=== PATIENT | male | born 1965 ===

== ENCOUNTER 2017-02-11 20:36 | Inpatient (IN) ==
[2017-02-11] MEDS ORDERED: SODIUM CHLORIDE 0.9% 1,000 ML IV STA (21:02)
--- NOTE | 2017-02-11 21:12 | Emergency Department Note ---
IAllyson Emily, am scribing for, and in the presence of, Caroline Fernandes DO 21:09. IDom Debra, DO, personally performed the services described in this documentation, ascribed by Gladys Valadez in my presence, and it is both accurate and complete . Arrival - Arrival Chief Complaint: Extremity Problem Stated Complaint: left arm pain & swelling ED Nursing Triage Note: C/O Left wrist/forearm pain and swelling. Onset Monday afternoon. Pt was seen in the clinic on 02/06/17 and was sent for doppler which was done and was negative. Pt reports that the pain has worsened and so has the swelling. Mode of Arrival: Wheelchair Limitations: No Limitations Source: Patient - History of Present Illness HPI Narrative: Pt is a 51 y/o male who came to ED with c/o left arm swelling that has been ongoing since last Monday, but not progressively worsened. Pt notes being seen on February 06, 2017, with negative Doppler US. Pt states the swelling and pain has worsened and increased up to graft site and unable to move hand or fingers. Onset (ago): day(s) Consistency: constant Severity: moderate Severity scale (1-10): 7 Quality: aching Allergies/Adverse Reactions: Allergies Allergy/AdvReac Type Severity Reaction Status Date / Time No Known Allergies Allergy Verified 10/04/16 05:13 Home Medications: Home Medications Medication Instructions Recorded Confirmed Type Aspirin [Ecotrin] 81 mg PO DAILY 02/11/17 02/11/17 History Calcium Carbonate 500 mg PO TID 02/11/17 02/11/17 History Carvedilol [Coreg] 25 mg PO BID 02/11/17 02/11/17 History Indomethacin [Indomethacin Cap] 25 mg PO TID PRN 02/11/17 02/11/17 History Insulin Aspart [NovoLOG FlexPen] 5 unit SUBCUT TID 02/11/17 02/11/17 History Insulin Detemir [Levemir FlexPen] 65 unit SUBCUT BEDTIME 02/11/17 02/11/17 History Pantoprazole Tab [Protonix Tab] 40 mg PO DAILY 02/11/17 02/11/17 History Ranitidine Tab [Zantac Tab] 150 mg PO BID 02/11/17 02/11/17 History Simvastatin 20 mg PO BEDTIME 02/11/17 02/11/17 History Vit B Comp/C/FA/Iron/Vit E 1 each PO DAILY 02/11/17 02/11/17 History [Vitamin B Complex Tablet] hydrALAZINE TAB [Apresoline Tab] 50 mg PO TID 02/11/17 02/11/17 History predniSONE TAB [PredniSONE] 20 mg PO DAILY 02/11/17 02/11/17 History Review of System - Review of System 12 point system: reviewed and no additional remarkable complaints except as stated - Review of System Constitutional: Absent: chills, fever, weakness Respiratory: Absent: respiratory distress Cardiovascular: Absent: chest pain, syncope Gastrointestinal: Absent: abdominal pain, nausea, vomiting Musculoskeletal: Present: arm pain (left swollen and painful progressively worsened). Absent: back pain, leg pain, neck pain Skin: Absent: rash Neurological: Absent: headache, confusion Medical,Surgical,& Family Hx - Medical History Cardio: History of: CHF (DR MAURICE), Hypertension Neurology: No history of: Seizures HEENT: History of: Ear Problem (DEAF LEFT EAR, HEARING AID), Eye Problem ( CATARACTS TAKES SHOTS BLEED BEHIND EYES) Endocrine: History of: Diabetes Mellitus (IDDM) Rheumatology: History of;: Rheumatoid Arthritis (knees) Respiratory: History of: Pneumonia (2012) No history of: Respiratory Problems (Flu Vac 2015; ?No Pneum Vac) Renal: History of: Renal Failure (STAGE 4 DR HAIR), Renal Problems Gastrointestinal: History of: GERD No history of: Polyps Musculoskeletal: History of: Amputation (RIGHT FOOT 2nd 3RD 4TH AND 5TH TOE : LEFT FOOT BIG TOE AND 2ND TOE) Hematology: History of: Anemia No history of: Blood Transfusion Reaction Other: History of: MRSA (FEET), Skin Problems (WOUNDS BOTH FEET-Dr. Amin) No history of: Anesthesia Reactions, Cancer - Surgical History Cardiac Surgeries: Sugical HX of: Vascular Access Devices (Sched for Lt wrist AV Fistula 08/05/15-unsuccessful; again 09/08/15) HEENT Surgeries: Surgical HX of: Eye Surgery (CATARACT SURGERY 2013, LEFT EYE RETINA SURGERY) Abdominal Surgeries: Surgical HX of: Abdominal Surgery, Colonoscopy Reproductive Surgeries: Patient denies;: Genitourinary Surgery - Family History Family History: Reports;: Family Cancer (MOM), Family Diabetes, Family Hypertension (DAD) - Social History Smoking Status: Never smoker Frequency of Alcohol Use: None Type of Drug Use: None Exam Vital Signs: Vital Signs Temperature 99.6 F 02/11/17 21:05 Pulse Rate 68 02/11/17 21:05 Respiratory Rate 20 02/11/17 21:05 Blood Pressure 191/77 02/11/17 21:05 O2 Sat by Pulse Oximetry 95 02/11/17 21:03 - General General appearance: alert, in no apparent distress - Head Head exam: Present: atraumatic, normocephalic - Eye Eye exam: Present: PERRL, EOMI - ENT ENT exam: Present: mucous membranes moist. Absent: mucous membranes dry - Neck Neck exam: Present: full ROM. Absent: tenderness - Chest Chest inspection: Present: symmetric chest wall rise. Absent: tenderness - Respiratory Respiratory exam: Present: normal lung sounds bilaterally. Absent: respiratory distress - Cardiovascular Cardiovascular exam: Present: regular rate, normal rhythm, normal heart sounds - Abdominal Exam Abdominal exam: Present: soft. Absent: tenderness - Extremities Exam Extremities exam: Present: tenderness (left arm swollen and painful from graft at elbow to fingertips, taunt). Absent: full ROM (decreased movement in left arm due to pain; tight), normal capillary refill (decreased cap refill), pedal edema - Neurological Exam Neurological exam: Present: alert, oriented X3, CN II-XII intact. Absent: motor sensory deficit - Psychiatric Psychiatric exam: Present: normal affect, normal mood - Skin Skin exam: Present: warm, dry Course Course Narrative: spoke with hospitalist who will admit pt . Results - Labs CBC & BMP: 02/11/17 21:07 02/11/17 21:07 Lab Results: I have reviewed the patients labs Labs: Laboratory Tests 02/11/17 02/11/17 21:07 21:07 WBC 20.1 H RBC 3.45 L Hgb 11.2 L Hct 31.1 L Neut % (Auto) 85.4 H Lymph % (Auto) 6.1 L Neut # (Auto) 17.2 H Lymph # (Auto) 1.2 L [place] # (Auto) 1.3 H Lymphocytes 10 L Sodium 129 L Chloride 90 L BUN 53 H Creatinine 6.20 H Glucose 289 H Calcium 10.2 H Alkaline Phosphatase 119 H Albumin 3.1 L Globulin 4.9 H Albumin/Globulin Ratio 0.6 L Disposition Clinical Impression: Arm pain Case discussed with: patient, patient's family Disposition: Still a Patient Condition: Stable Time of Disposition: 23:12
[2017-02-11 21:15] LABS: Basophils % 0.2 % (0.0-0.8); Eosinophils # 0.2 10*3/uL (0.0-0.87); Eosinophils % 0.8 % (0.00-10.9); Hematocrit 31.1 VOL% (42.0-52.0); Hemoglobin 11.2 GM/DL (14.0-18.0); Immature Granulocytes % 0.9 %; Immature Granulocytes Absolute 0.18 #; Lymphocytes # 1.2 10*3/uL (1.4-4.0); Lymphocytes % 6.1 % (21.2-54.2); Mean Corpuscular Hemoglobin 33 PG (27-34); Mean Corpuscular Volume 90.1 FL (87-102); Mean Platelet Volume 10.3 FL (9.6-12.0); Monocytes # 1.3 10*3/uL (0.11-0.8); Monocytes % 6.6 % (1.7-12.7); NRBC # 0.02 10*3/uL; Neutrophils # 17.2 10*3/uL (1.4-7.4); Neutrophils % 85.4 % (38.7-73.9); Platelet Count 246 T/CUMM (130-400); Red Blood Count 3.45 MC/CUMM (3.8-5.5); Red Cell Distribution Width 14.6 % (9.3-17.3); White Blood Count 20.1 T/CUMM (4-12)
[2017-02-11 21:34] LABS: Band Neutrophils 1 % (0-10); Eosinophils 1 % (0-10); Lymphocytes 10 % (20-55); Platelet Estimate Adequate; Segmented Neutrophils 82 % (50-85); Total Cells Counted 100
[2017-02-11 21:38] LABS: Albumin 3.1 G/DL (3.4-5.0); Bilirubin,Total 0.5 MG/DL (0.2-1.0); Calcium 10.2 MG/DL (8.5-10.1); Osmolality,Calculated 282.9 MOS/KG (273-304)
[2017-02-11] MEDS ORDERED: ONDANSETRON 4 MG/2 ML VIAL ONE (22:34)
[2017-02-11] MEDS ORDERED: HYDROmorphone 2 MG/1 ML VIAL ONE (22:35)
[2017-02-11] MEDS ORDERED: HYDROmorphone 2 MG/1 ML VIAL IV STA (22:38)
[2017-02-11] MEDS ORDERED: ONDANSETRON 4 MG/2 ML VIAL IV STA (22:38)
--- NOTE | 2017-02-11 23:05 | General Surgery Consult Note ---
Assessment and Plan - Time spent with patient Time spent with patient: Greater than 30 minutes (1) Left arm swelling Status: Acute Assessment and plan: I suspect that his swelling is from venous hypertension in his left arm. We will admit him and aggressively elevate his arm. We will consult interventional radiology to see about doing a fistulogram to see if there is a venous outflow stenosis. This was not evident on ultrasound but could be a central venous stenosis causing venous hypertension in his extremity. Current Visit: Yes (2) Chronic renal insufficiency, stage IV (severe) Status: Chronic Assessment and plan: He will probably need to be seen by nephrology to manage dialysis Current Visit: No History of Present Illness Chief complaint: Left arm pain and swelling History of present illness: Mr. Adams is a 51 year old male Who for 2 weeks she has had persistent swelling in his left arm and increased pain associated with this. He has not had cyanosis of his fingers. He has a left arm AV fistula in his left upper arm based off of the cephalic vein. This was done by Dr. Pierre I believe. He was seen here a couple of days ago and has returned because this is more swollen and more intense. He does not know of any aggravating or alleviating factors. His fistula has been usable for dialysis. Home Medications Medication Instructions Recorded Confirmed Type Aspirin [Ecotrin] 81 mg PO DAILY 02/11/17 02/11/17 History Calcium Carbonate 500 mg PO TID 02/11/17 02/11/17 History Carvedilol [Coreg] 25 mg PO BID 02/11/17 02/11/17 History Indomethacin [Indomethacin Cap] 25 mg PO TID PRN 02/11/17 02/11/17 History Insulin Aspart [NovoLOG FlexPen] 5 unit SUBCUT TID 02/11/17 02/11/17 History Insulin Detemir [Levemir FlexPen] 65 unit SUBCUT BEDTIME 02/11/17 02/11/17 History Pantoprazole Tab [Protonix Tab] 40 mg PO DAILY 02/11/17 02/11/17 History Ranitidine Tab [Zantac Tab] 150 mg PO BID 02/11/17 02/11/17 History Simvastatin 20 mg PO BEDTIME 02/11/17 02/11/17 History Vit B Comp/C/FA/Iron/Vit E 1 each PO DAILY 02/11/17 02/11/17 History [Vitamin B Complex Tablet] hydrALAZINE TAB [Apresoline Tab] 50 mg PO TID 02/11/17 02/11/17 History predniSONE TAB [PredniSONE] 20 mg PO DAILY 02/11/17 02/11/17 History Allergies Allergy/AdvReac Type Severity Reaction Status Date / Time No Known Allergies Allergy Verified 10/04/16 05:13 Medical,Surgical,& Family Hx - Medical History Cardio: History of: CHF (DR MAURICE), Hypertension Neurology: No history of: Seizures HEENT: History of: Ear Problem (DEAF LEFT EAR, HEARING AID), Eye Problem ( CATARACTS TAKES SHOTS BLEED BEHIND EYES) Endocrine: History of: Diabetes Mellitus (IDDM) Rheumatology: History of;: Rheumatoid Arthritis (knees) Respiratory: History of: Pneumonia (2012) No history of: Respiratory Problems (Flu Vac 2015; ?No Pneum Vac) Renal: History of: Dialysis, Renal Failure (STAGE 4 DR HAIR), Renal Problems Gastrointestinal: History of: GERD No history of: Polyps Musculoskeletal: History of: Amputation (RIGHT FOOT 2nd 3RD 4TH AND 5TH TOE : LEFT FOOT BIG TOE AND 2ND TOE) Hematology: History of: Anemia No history of: Blood Transfusion Reaction Other: History of: MRSA (FEET), Skin Problems (WOUNDS BOTH FEET-Dr. Amin) No history of: Anesthesia Reactions, Cancer - Surgical History Cardiac Surgeries: Sugical HX of: Vascular Access Devices (Sched for Lt wrist AV Fistula 08/05/15-unsuccessful; again 09/08/15) HEENT Surgeries: Surgical HX of: Eye Surgery (CATARACT SURGERY 2013, LEFT EYE RETINA SURGERY) Abdominal Surgeries: Surgical HX of: Abdominal Surgery, Colonoscopy Reproductive Surgeries: Patient denies;: Genitourinary Surgery - Family History Family History: Reports;: Family Cancer (MOM), Family Diabetes, Family Hypertension (DAD) - Social History Smoking Status: Never smoker Frequency of Alcohol Use: None Type of Drug Use: None - Constitutional Constitutional: Absent: chills, fever(s) - Cardiovascular Cardiovascular: Absent: chest pain at rest, chest pain with activity, dyspnea, dyspnea on exertion - Respiratory Respiratory: Absent: dyspnea, hemoptysis, dyspnea on exertion - Gastrointestinal Gastrointestinal: Absent: abdominal pain - Genitourinary Genitourinary: Absent: hematuria - Musculoskeletal Musculoskeletal: Absent: back pain - Neurological Neurological: Present: numbness (Fingers of left hand). Absent: focal weakness , syncope - Endocrine Endocrine: Absent: polyuria Hematologic/Lymphatic: Absent: easy bruising Exam - Constitutional Vitals: Period Temp Pulse Resp BP Sys/Jo Pulse Ox Last 24 Hr 99.6 F-99.6 F 66-68 18-20 141-191/77-85 92-95 General appearance: no acute distress - Head Head exam: Present: normocephalic - Eye Eye exam: Absent: scleral icterus - Respiratory Respiratory exam: Present: clear to auscultation bilaterally. Absent: accessory muscle use - Cardiovascular Cardiovascular exam: Present: RRR - GI/Abdominal GI/Abdominal exam: Present: soft. Absent: distended, tenderness - Extremities Exam Extremities exam: Present: edema, other (Left arm has no erythema and there is no cyanosis of his fingers. He has a very weakly palpable radial pulse and brisk flow in his AV fistula especially over his shoulder.) - Neurological Exam Neurological exam: Present: alert, oriented X3 Speech: Present: normal - Skin Skin exam: Present: normal color Results - Labs CBC & BMP: 02/11/17 21:07 02/11/17 21:07 - Diagnostic Findings Procedure: Ultrasound: image reviewed by me
[2017-02-11] MEDS ORDERED: ONDANSETRON 4 MG/2 ML VIAL IV PRN (23:26)
[2017-02-11] MEDS ORDERED: VANCOMYCIN INJ 1,500 MG in SODIUM CHLORIDE 0.9% 500 ML IV STA (23:32)
--- NOTE | 2017-02-11 23:45 | Hospitalist History & Physical ---
Assessment and Plan (1) Left arm swelling Status: Acute Assessment and plan: Left upper extremity swelling likely due to AV access obstruction at the venous side. He will probably need a fistulogram to evaluate fistula. Dr. Desire Vasquez. already have planned to get IR evaluate him. I am cannot rule out cellulitis associated with that. Patient has a leukocytosis and has worsened since his lab work at the [facility]. I will give him a dose of vancomycin and started on renal dose of Zosyn. Blood cultures been asked for. Since he has an similar disease, I have given only 1 dose of vancomycin. I will order a random level of vancomycin on Monday morning and will defer further dosing to hospitalist rounding which would be based on patient progress further finding and culture result Current Visit: Yes (2) Anemia Status: Acute Assessment and plan: Probably related to chronic disease/end-stage renal disease. Current Visit: No (3) Diabetes mellitus Status: Acute Assessment and plan: Patient was on Levemir at home with the short-acting insulin I will start on as part before meals and at bedtime. I will give him Lantus insulin 40 units daily which. Not sure much he is compliant with the medications I am reluctant to give the full dose of insulin. His blood sugar significantly improved from what he had at the [facility]. His insulin may need to be adjusted based on his blood sugar readings Current Visit: No (4) Diabetic foot ulcer associated with type 2 diabetes mellitus Problem details: Chronic bilateral plantar foot ulcerations in a diabetic patient with history of partial bilatera foot amputations and skin grafts, now with end stage renal disease and new onset dialysis. Status: Chronic Assessment and plan: I have ordered for the wound care management. Patient is followed by Dr. Amin and supposed to have appointment on . There is no urgency at present patient is already on antibiotic. Dr. Amin may have be to be notified on Monday Current Visit: No (5) End stage renal disease on dialysis Status: Chronic Assessment and plan: We will consult renal to assist with the dialysis management Current Visit: No (6) History of CHF (congestive heart failure) Status: Chronic Assessment and plan: Clinically compensated Current Visit: Yes (7) Hypertension Status: Chronic Assessment and plan: Blood pressure not controlled patient has not received any medicine today will resume his home medication he is asymptomatic for his hypertension Current Visit: No Qualifiers: Hypertension type: essential hypertension Qualified Code(s): I10 - Essential (primary) hypertension History of Present Illness Chief complaint: Swelling left arm History of present illness: Mr. Adams is a 51 year old male with history of hypertension diabetes mellitus CHF and ESRD. He is on dialysis on Monday schedule and was last dialyzed yesterday.. He has left upper extremities AV fistula which was placed in August. He started having swelling of the left arm on Monday and was seen here in ER Monday he had a Doppler study of the left upper extremity was negative for DVT he was given steroid. His pain and swelling get worse since then but apparently had no problem in getting access cannulated for dialysis yesterday. There is no associated fever. He was seen at [facility] and had lab work done there noted WBC count of 14.5 and had a blood sugar of 853 he was given insulin and transferred here to [facility] ER. Here he had WBC count of 20.1 and blood sugar 289. He had another venous Dopplers done results not available to review but I have been told by the ER physician that was negative for DVT. Patient was seen by Dr. Desire nAn in the ER as there was a concern for compartment syndrome by ER physician. Dr. Desire Ann has evaluated and want to keep his arm elevated and plan to get a fistulogram. I have asked patient about any other symptoms he denies pain anywhere else he does have a's wounds on both extremities and the foot and to be followed by Dr. Amin. He is followed by the home health and change the dressing at home. He denied any pain in the wound on her feet he has denied any other body symptoms I denies any nausea vomiting diarrhea but do have a poor appetite and or not he was not able to eat anything today no chest pain shortness of breath reported he makes urine once a day and denies any dysuria or hematuria Home Medications Medication Instructions Recorded Confirmed Type Aspirin [Ecotrin] 81 mg PO DAILY 02/11/17 02/11/17 History Calcium Carbonate 500 mg PO TID 02/11/17 02/11/17 History Carvedilol [Coreg] 25 mg PO BID 02/11/17 02/11/17 History Indomethacin [Indomethacin Cap] 25 mg PO TID PRN 02/11/17 02/11/17 History Insulin Aspart [NovoLOG FlexPen] 5 unit SUBCUT TID 02/11/17 02/11/17 History Insulin Detemir [Levemir FlexPen] 65 unit SUBCUT BEDTIME 02/11/17 02/11/17 History Pantoprazole Tab [Protonix Tab] 40 mg PO DAILY 02/11/17 02/11/17 History Ranitidine Tab [Zantac Tab] 150 mg PO BID 02/11/17 02/11/17 History Simvastatin 20 mg PO BEDTIME 02/11/17 02/11/17 History Vit B Comp/C/FA/Iron/Vit E 1 each PO DAILY 02/11/17 02/11/17 History [Vitamin B Complex Tablet] hydrALAZINE TAB [Apresoline Tab] 50 mg PO TID 02/11/17 02/11/17 History predniSONE TAB [PredniSONE] 20 mg PO DAILY 02/11/17 02/11/17 History Allergies Allergy/AdvReac Type Severity Reaction Status Date / Time No Known Allergies Allergy Verified 10/04/16 05:13 Medical,Surgical,& Family Hx - Medical History Cardio: History of: CHF (DR MAURICE), Hypertension Neurology: No history of: Seizures HEENT: History of: Ear Problem (DEAF LEFT EAR, HEARING AID), Eye Problem ( CATARACTS TAKES SHOTS BLEED BEHIND EYES) Endocrine: History of: Diabetes Mellitus (IDDM) Rheumatology: History of;: Rheumatoid Arthritis (knees) Respiratory: History of: Pneumonia (2012) No history of: Respiratory Problems (Flu Vac 2015; ?No Pneum Vac) Renal: History of: Dialysis, Renal Failure (STAGE 4 DR HAIR), Renal Problems Gastrointestinal: History of: GERD No history of: Polyps Musculoskeletal: History of: Amputation (RIGHT FOOT 2nd 3RD 4TH AND 5TH TOE : LEFT FOOT BIG TOE AND 2ND TOE) Hematology: History of: Anemia No history of: Blood Transfusion Reaction Other: History of: MRSA (FEET), Skin Problems (WOUNDS BOTH FEET-Dr. Amin) No history of: Anesthesia Reactions, Cancer - Surgical History Cardiac Surgeries: Sugical HX of: Vascular Access Devices (Sched for Lt wrist AV Fistula 08/05/15-unsuccessful; again 09/08/15) HEENT Surgeries: Surgical HX of: Eye Surgery (CATARACT SURGERY 2013, LEFT EYE RETINA SURGERY) Abdominal Surgeries: Surgical HX of: Abdominal Surgery, Colonoscopy Reproductive Surgeries: Patient denies;: Genitourinary Surgery - Family History Family History: Reports;: Family Cancer (MOM), Family Diabetes, Family Hypertension (DAD) - Social History Smoking Status: Never smoker Frequency of Alcohol Use: None Type of Drug Use: None Review of systems: Comprehensive review of system was done and negative unless indicated above in HPI Exam - Constitutional Vitals: Period Temp Pulse Resp BP Sys/Jo Pulse Ox Last 24 Hr 99.6 F-99.6 F 66-68 18-20 141-191/77-85 92-95 General appearance: no acute distress, over weight - Head Head exam: Present: normal inspection, normocephalic, atraumatic. Absent: hematoma - Eye Eye exam: Present: EOMI. Absent: conjunctival injection Pupils: Present: YOLANDA, normal accommodation - ENT ENT exam: Present: normal exam, normal oropharynx - Neck Neck exam: Present: normal inspection. Absent: lymphadenopathy, meningismus - Respiratory Respiratory exam: Present: clear to auscultation bilaterally. Absent: accessory muscle use, rales, rhonchi - Cardiovascular Cardiovascular exam: Present: regular rate and rhythm. Absent: tachycardia - GI/Abdominal GI/Abdominal exam: Present: normal bowel sounds, soft. Absent: ascites, distended, tenderness - Extremities Exam Extremities exam: Present: edema (Left upper extremities swollen at the hand wrist and forearm with some redness and mild elevated temperature compared to the right side I can feel pedal at the AV access in left upper extremity), other (Amputation of the right fourth toes. There is a wound on the solar aspect of right big toe with some necrotic tissue around. There is amputation of photos in the left lower extremities. 2 ulcers on the solar aspect of the left foot , one with the large area of necrosis at the age) - Neurological Exam Neurological exam: Present: alert, oriented X3 Results - Labs CBC & BMP: 02/11/17 21:07 02/11/17 21:07 Lab Results: I have reviewed the past 24 hour labs
[2017-02-12] MEDS ORDERED: DEXTROSE 50% 25 GM/50 ML VIAL IV PRN (00:01)
[2017-02-12] MEDS ORDERED: GLUCAGON 1 MG VIAL IM PRN (00:01)
[2017-02-12] MEDS ORDERED: VANCOMYCIN 1,000 MG VIAL ONE (00:30)
[2017-02-12] MEDS: INSULIN REGULAR 100 UNIT/ML SUBCUT SCH ×5 (02:15→21:14)
[2017-02-12] MEDS: PIPERACILLIN/TAZOBACTAM 3,375 MG in SODIUM CHLORIDE 0.9% 100 ML IV SCH ×2 (03:12→15:47)
[2017-02-12 06:24] LABS: Basophils # 0.1 10*3/uL (0.0-0.2); Basophils % 0.2 % (0.0-0.8); Eosinophils # 0.1 10*3/uL (0.0-0.87); Eosinophils % 0.6 % (0.00-10.9); Hematocrit 26.7 VOL% (42.0-52.0); Hemoglobin 9.5 GM/DL (14.0-18.0); Immature Granulocytes % 1.2 %; Immature Granulocytes Absolute 0.24 #; Lymphocytes # 1.4 10*3/uL (1.4-4.0); Mean Corpuscular HGB Conc 35.6 GM/DL (32-36); Mean Corpuscular Hemoglobin 32 PG (27-34); Mean Corpuscular Volume 91.1 FL (87-102); Mean Platelet Volume 10.4 FL (9.6-12.0); Monocytes # 1.3 10*3/uL (0.11-0.8); Monocytes % 6.4 % (1.7-12.7); Neutrophils # 17.5 10*3/uL (1.4-7.4); Neutrophils % 84.6 % (38.7-73.9); Platelet Count 210 T/CUMM (130-400); Red Blood Count 2.93 MC/CUMM (3.8-5.5); Red Cell Distribution Width 14.7 % (9.3-17.3); White Blood Count 20.7 T/CUMM (4-12)
[2017-02-12 07:01] LABS: Calcium 9.8 MG/DL (8.5-10.1); Osmolality,Calculated 284.7 MOS/KG (273-304)
[2017-02-12 07:13] LABS: Hypochromasia Slight; Lymphocytes 9 % (20-55); Microcytosis 1+; Platelet Estimate Normal; Segmented Neutrophils 87 % (50-85); Total Cells Counted 100
--- NOTE | 2017-02-12 07:56 | Ultrasound Report ---
History: Left arm swelling Date: 02/12/2017 Study: Left upper extremity color flow venous Doppler study Comparison exam: February 06, 2017 exam Color Doppler, wave form analysis, and compression analysis of the deep veins of the left upper extremity from the internal jugular and subclavian vein level to the wrist level shows that the veins are readily compressible. There is no abnormal intraluminal material to suggest thrombus. There is gross patency of the left upper extremity dialysis graft. There is gross patency of the left brachial artery.. Ultrasound images were captured and archived Impression: No evidence of deep venous thrombosis PROCEDURE INTERPRETED AT [facility] DEPARTMENT OF RADIOLOGY Final Report Signed by: Dr. Janie Wilkinson
--- NOTE | 2017-02-12 08:11 | General Surgery Progress Note ---
Assessment and Plan (1) Left arm swelling Status: Acute Assessment and plan: I suspect that his swelling is from venous hypertension in his left arm. We will admit him and aggressively elevate his arm. We will consult interventional radiology to see about doing a fistulogram to see if there is a venous outflow stenosis. This was not evident on ultrasound but could be a central venous stenosis causing venous hypertension in his extremity. 02/12: He continues to have arm pain though he says this is a little better than last night. I have had his arm aggressively elevated on an IV pole with a stockinette. He does not have much in the way of edema. It is unclear the etiology of his pain whether this is venous hypertension from a central venous stenosis and high pressure related to the fistula or whether or not this could be pain from a steal type syndrome. It would be unusual to get a steal syndrome this far out from creation of the AV fistula. We will have him evaluated by interventional radiology today. Current Visit: Yes (2) Chronic renal insufficiency, stage IV (severe) Status: Chronic Assessment and plan: He will probably need to be seen by nephrology to manage dialysis Current Visit: No Subjective Patient reports: Present: still having pain, pain is less. Absent: nausea, vomiting, fever Exam - Constitutional Vitals: Period Temp Pulse Resp BP Sys/Jo Pulse Ox Last 24 Hr 99.1 F-99.6 F 63-95 18-96 122-191/57-85 92-97 General appearance: no acute distress - Head Head exam: Present: normocephalic - Eye Eye exam: Absent: scleral icterus - Respiratory Respiratory exam: Absent: accessory muscle use - Extremities Exam Extremities exam: Present: edema, other (His edema is actually mild. His forearm is soft and not really tender. I do not appreciate erythema. His hand is not cyanotic. The examination is not that impressive however he still complains of arm pain. His ultrasound was essentially negative.) Results - Labs CBC & BMP: 02/12/17 05:58 02/12/17 05:58 Lab Results: I have reviewed the past 24 hour labs
[2017-02-12] MEDS: CALCIUM (CARBONATE) 500 MG TABLET PO SCH ×3 (08:36→16:51)
[2017-02-12] MEDS: predniSONE 20 MG TABLET PO SCH (08:56)
[2017-02-12] MEDS: MULTIVITAMIN (BEROCCA) TABLET PO SCH (08:56)
[2017-02-12] MEDS: CARVEDILOL 25 MG TABLET PO SCH ×2 (08:56→21:13)
[2017-02-12] MEDS: ASPIRIN EC 81 MG TABLET PO SCH (08:56)
[2017-02-12] MEDS: ENOXAPARIN 30 MG/0.3 ML SYRINGE SUBCUT SCH ×2 (08:56→09:00)
[2017-02-12] MEDS: PANTOPRAZOLE 40 MG TABLET PO SCH (08:56)
--- NOTE | 2017-02-12 10:00 | Nephrology Consult Note ---
History of Present Illness Chief complaint: esrd History of present illness: Mr. Adams is a 51 year old male with end-stage renal disease who presents with a swollen left arm he says it has been swelling for over a week. He has a left upper arm fistula in place which is functional. There is no evidence of infection in the arm. Mr. Adams dialyzes in [place] on a Monday schedule. He last dialyzed on Monday. He has a long history of diabetic peripheral vascular disease and has had toes amputated in the past. On physical exam he is in no distress but he does have a swollen left arm with a functioning AV fistula in the left upper arm. His chest is clear and heart without rub or gallop. He has toes amputated on both feet. Impression swollen left arm likely secondary to venous hypertension and hopefully a treatable venous narrowing. End-stage renal disease. Diabetes mellitus. Peripheral vascular disease. Plan fistulogram. Dialysis here or as an outpatient. Home Medications Medication Instructions Recorded Confirmed Type Aspirin [Ecotrin] 81 mg PO DAILY 02/11/17 02/12/17 History Calcium Carbonate 1,000 mg PO TID W/MEALS 02/11/17 02/12/17 History Carvedilol [Coreg] 25 mg PO BID 02/11/17 02/12/17 History Indomethacin [Indomethacin Cap] 25 mg PO TID PRN 02/11/17 02/12/17 History Insulin Aspart [NovoLOG FlexPen] 5 unit SUBCUT TID 02/11/17 02/12/17 History Insulin Detemir [Levemir FlexPen] 65 unit SUBCUT BEDTIME 02/11/17 02/12/17 History hydrALAZINE TAB [Apresoline Tab] 50 mg PO TID 02/11/17 02/12/17 History predniSONE TAB [PredniSONE] 20 mg PO DAILY 02/11/17 02/12/17 History Allergies Allergy/AdvReac Type Severity Reaction Status Date / Time No Known Allergies Allergy Verified 10/04/16 05:13 Medical,Surgical,& Family Hx - Medical History Cardio: History of: CHF (DR MAURICE doesn't take any medications for this.), Hypertension Neurology: No history of: Seizures HEENT: History of: Ear Problem (DEAF LEFT EAR, HEARING AID), Eye Problem ( CATARACTS TAKES SHOTS BLEED BEHIND EYES) Endocrine: History of: Diabetes Mellitus (IDDM) (levemir) Rheumatology: History of;: Rheumatoid Arthritis (knees) Respiratory: History of: Pneumonia (2012) No history of: Respiratory Problems (Flu Vac 2016; ?No Pneum Vac) Renal: History of: Dialysis (m/w/f), Renal Failure (STAGE 4 DR HAIR), Renal Problems (dialysis patient.) Gastrointestinal: History of: GERD No history of: Polyps Musculoskeletal: History of: Amputation (RIGHT FOOT 2nd 3RD 4TH AND 5TH TOE : LEFT FOOT BIG TOE AND 2ND TOE) Hematology: History of: Anemia No history of: Blood Transfusion Reaction Other: History of: MRSA (history of MRSA in foot,), Skin Problems (WOUNDS BOTH FEET-Dr. Amin) No history of: Anesthesia Reactions, Cancer - Surgical History Cardiac Surgeries: Sugical HX of: Vascular Access Devices (Sched for Lt wrist AV Fistula 08/05/15-unsuccessful; again 09/08/15) HEENT Surgeries: Surgical HX of: Eye Surgery (CATARACT SURGERY 2013, LEFT EYE RETINA SURGERY) Abdominal Surgeries: Surgical HX of: Abdominal Surgery, Colonoscopy Reproductive Surgeries: Patient denies;: Genitourinary Surgery - Family History Family History: Reports;: Family Cancer (MOM), Family Diabetes, Family Hypertension (DAD) - Social History Smoking Status: Never smoker Frequency of Alcohol Use: None Type of Drug Use: None Review of Systems 12 point system: reviewed and no additional remarkable complaints except as stated Exam - Vital Signs Vital signs: Period Temp Pulse Resp BP Sys/Jo Pulse Ox Last 24 Hr 99.1 F-100.2 F 63-95 16-96 122-191/57-85 92-97 - General Appearance General appearance: well-developed, well-nourished, appears started age EENT: ATNC Neck: no JVD, no thyromegaly, no carotid bruit, supple Respiratory: no kyphosis, no scoliosis Cardiology: no murmurs, no rub, no gallops, no edema, regular rate, regular rhythm, normal S1, normal S2 Gastrointestinal: normoactive bowel sounds Integumentary: no rash, warm and dry Neurologic: no focal deficit, no asterixis, alert and oriented x3, reflexes 2+ and symmetric, gait normal, strength 5/5 Musculoskeletal: no deformities (toe amps bilaterally. swollen left arm), no erythema, no cyanosis, no clubbing Psychiatric: mood/affect appropriate, cooperative Results - Labs CBC & BMP: 02/12/17 05:58 02/12/17 05:58 Assessment and Plan (1) End stage renal disease Status: Chronic Current Visit: No (2) Left arm swelling Status: Acute Current Visit: Yes (3) Diabetes mellitus Status: Acute Current Visit: No Specialty Discharge - Follow Up or Referrals - Speciality Discharge Instructions Nephrology Instructions: Will dialyze tomorrow if here or he can be dialyzed as an outpatient if discharged.
--- NOTE | 2017-02-12 10:18 | Hospitalist Progress Note ---
Assessment and Plan - Time spent with patient Time spent with patient: Greater than 30 minutes (1) Sepsis Status: Acute Assessment and plan: Source is likely the left arm, soft tissue infection. Continue broad spectrum antibiotics. Consult ID. Current Visit: Yes (2) Cellulitis Status: Acute Assessment and plan: Continue Zosyn and Vancomycin. Will consult ID. Current Visit: Yes (3) Left arm swelling Status: Acute Assessment and plan: Surgery consulted for possible fistula dysfunction. IR to be consulted for evaluation of fistula. Current Visit: Yes (4) Diabetes mellitus Status: Acute Assessment and plan: Continue current management. Current Visit: No (5) History of CHF (congestive heart failure) Status: Chronic Current Visit: Yes (6) Anemia Status: Acute Assessment and plan: Due to CKD, will continue to follow. Current Visit: No (7) End stage renal disease on dialysis Status: Chronic Assessment and plan: Dialysis Current Visit: No (8) Hypertension Status: Chronic Current Visit: No Qualifiers: Hypertension type: essential hypertension Qualified Code(s): I10 - Essential (primary) hypertension Hospitalist: Subjective Interval history: Complains of left arm swelling and pain. States this has been a progressively worsening issue for 2 weeks. F of 100.2. Exam - Constitutional Vitals: Period Temp Pulse Resp BP Sys/Jo Pulse Ox Last 24 Hr 99.1 F-100.2 F 63-95 16-96 122-191/57-85 92-97 General appearance: normal weight, no acute distress - Head Head exam: Present: normal inspection, normocephalic, atraumatic - Eye Eye exam: Present: EOMI Pupils: Present: YOLANDA - ENT ENT exam: Present: normal exam - Neck Neck exam: Present: normal inspection - Respiratory Respiratory exam: Present: clear to auscultation bilaterally. Absent: accessory muscle use, prolonged expiratory phase, rhonchi, wheezes - Cardiovascular Cardiovascular exam: Present: regular rate and rhythm. Absent: bradycardia, gallop, irregular rhythm, rubs, systolic murmur - GI/Abdominal GI/Abdominal exam: Present: normal bowel sounds, soft. Absent: distended, firm , guarding, tenderness, rebound - Extremities Exam Extremities exam: Present: other (left arm swelling, warm, mild erythema throughout the entire arm. Multiple toe amputations of both feet.). Absent: calf tenderness, edema Results - Labs CBC & BMP: 02/12/17 05:58 02/12/17 05:58 Lab Results: I have reviewed the past 24 hour labs
--- NOTE | 2017-02-12 15:58 | Post Interventional Procedure ---
Pre-op diagnosis: Left arm swelling and pain Post-op diagnosis: same Procedure: AV fistulogram left upper extremity Radiologist: Janie Wilkinson Anesthesia: local Specimens: none sent Estimated blood loss: none, minimal (less than 3 ml) Complications: none Condition: stable Description/Findings: Informed consent was obtained. Formal timeout was performed. The patient was prepped and draped in standard fashion while in the supine position. Maximum sterile barrier technique was utilized. Using sterile singlewall puncture technique under 1% local lidocaine anesthesia, a micropuncture was used to gain access into the patient's left upper arm AV fistula. Serial filming over the fistula and central venous outflow was performed during contrast administration. Reflux angiography was also performed to evaluate the arterial anastomosis. No immediate complications were encountered. The patient tolerated the procedure well. After the procedure, manual compression was utilized to maintain hemostasis. Total fluoroscopy time: 1.0 minute Total images captured and archived: 39 Total contrast utilized: 25 mL Omnipaque 350 Findings: The left upper arm AV fistula is widely patent. There is no hemodynamically significant stenosis. There are at least 3 side branches at the proximal to mid humeral shaft level. There is no central venous stenosis of significance to the level of the superior vena cava. There is no significant stenosis of the arterial anastomotic site. Reflux angiography documents patency of the radial and ulnar arteries to the level of the hand. Impression: No evidence to suggest significant central venous obstruction. Generally patent left upper arm AV fistula Assessment and Plan - Time spent with patient Time spent with patient: Less than 30 minutes
--- NOTE | 2017-02-12 16:01 | Interventional Radiology Rpt ---
History: Left arm swelling and pain. Evaluate left upper extremity AV fistula for obstruction Date: 02/12/2017 Study: AV fistulogram left upper extremity. IR Dialysis Angiography Comparison exam: No previous similar Informed consent was obtained. Formal timeout was performed. The patient was prepped and draped in standard fashion while in the supine position. Maximum sterile barrier technique was utilized. Using sterile singlewall puncture technique under 1% local lidocaine anesthesia, a micropuncture was used to gain access into the patient's left upper arm AV fistula. Serial filming over the fistula and central venous outflow was performed during contrast administration. Reflux angiography was also performed to evaluate the arterial anastomosis. No immediate complications were encountered. The patient tolerated the procedure well. After the procedure, manual compression was utilized to maintain hemostasis. Total fluoroscopy time: 1.0 minute Total images captured and archived: 39 Total contrast utilized: 25 mL Omnipaque 350 Findings: The left upper arm AV fistula is widely patent. There is no hemodynamically significant stenosis. There are at least 3 side branches at the proximal to mid humeral shaft level. There is no central venous stenosis of significance to the level of the superior vena cava. There is no significant stenosis of the arterial anastomotic site. Reflux angiography documents patency of the radial and ulnar arteries to the level of the hand. Impression: No evidence to suggest significant central venous obstruction. Generally patent left upper arm AV fistula PROCEDURE INTERPRETED AT [facility] DEPARTMENT OF RADIOLOGY Final Report Signed by: Dr. Janie Wilkinson
[2017-02-12] MEDS: SIMVASTATIN 20 MG TABLET PO SCH (21:13)
[2017-02-12] MEDS: INSULIN GLARGINE 100 UNIT/ML SUBCUT SCH (21:13)
[2017-02-13] MEDS: INSULIN REGULAR 100 UNIT/ML SUBCUT SCH ×5 (01:29→21:38)
--- NOTE | 2017-02-13 04:34 | General Surgery Progress Note ---
Assessment and Plan (1) Left arm swelling Status: Acute Assessment and plan: I suspect that his swelling is from venous hypertension in his left arm. We will admit him and aggressively elevate his arm. We will consult interventional radiology to see about doing a fistulogram to see if there is a venous outflow stenosis. This was not evident on ultrasound but could be a central venous stenosis causing venous hypertension in his extremity. 02/12: He continues to have arm pain though he says this is a little better than last night. I have had his arm aggressively elevated on an IV pole with a stockinette. He does not have much in the way of edema. It is unclear the etiology of his pain whether this is venous hypertension from a central venous stenosis and high pressure related to the fistula or whether or not this could be pain from a steal type syndrome. It would be unusual to get a steal syndrome this far out from creation of the AV fistula. We will have him evaluated by interventional radiology today. 02/13: The edema of the arm itself is completely resolved. The issue appears to be at the wrist and this may be a primary wrist problem. I do not think that there is an underlying vascular issue as his fistulogram and venogram did not show any evidence of obstruction and the arteries appeared normal down to the wrist. We will check x-rays of his wrist. Whether there is a secondary cellulitis is questionable as well. This patient has had a markedly elevated white blood cell count. We will recheck this. Current Visit: Yes (2) Chronic renal insufficiency, stage IV (severe) Status: Chronic Assessment and plan: He will probably need to be seen by nephrology to manage dialysis Current Visit: No Subjective Patient reports: Present: feels better, pain is less. Absent: fever Exam - Constitutional Vitals: Period Temp Pulse Resp BP Sys/Jo Pulse Ox Last 24 Hr 96.6 F-100.2 F 63-69 16-20 117-150/49-67 91-100 General appearance: no acute distress - Head Head exam: Present: normocephalic - Eye Eye exam: Absent: scleral icterus - Respiratory Respiratory exam: Absent: accessory muscle use - Extremities Exam Extremities exam: Present: other (The edema is resolved from the arm and there is no tenderness of the arm at all but there is tenderness at the wrist. All the symptoms appear to be related to the wrist itself and not the hand or arm. I cannot palpate any deformity. I do not see any obvious cellulitis in this patient who does have an elevated white blood cell count. We will check x-rays of the wrist.). Absent: edema Results - Labs CBC & BMP: 02/12/17 05:58 02/12/17 05:58 Lab Results: I have reviewed the past 24 hour labs - Diagnostic Findings Procedure: X-ray: report reviewed by me
[2017-02-13 05:58] LABS: Basophils % 0.2 % (0.0-0.8); Eosinophils # 0.2 10*3/uL (0.0-0.87); Eosinophils % 0.9 % (0.00-10.9); Hematocrit 23.6 VOL% (42.0-52.0); Hemoglobin 8.1 GM/DL (14.0-18.0); Immature Granulocytes % 1.4 %; Immature Granulocytes Absolute 0.27 #; Lymphocytes # 1.6 10*3/uL (1.4-4.0); Lymphocytes % 7.9 % (21.2-54.2); Mean Corpuscular HGB Conc 34.3 GM/DL (32-36); Mean Corpuscular Hemoglobin 32 PG (27-34); Mean Corpuscular Volume 93.3 FL (87-102); Mean Platelet Volume 10.5 FL (9.6-12.0); Monocytes # 1.5 10*3/uL (0.11-0.8); Monocytes % 7.5 % (1.7-12.7); NRBC # 0.02 10*3/uL; Neutrophils # 16.4 10*3/uL (1.4-7.4); Neutrophils % 82.1 % (38.7-73.9); Platelet Count 211 T/CUMM (130-400); Red Blood Count 2.53 MC/CUMM (3.8-5.5); Red Cell Distribution Width 14.9 % (9.3-17.3); White Blood Count 19.9 T/CUMM (4-12)
[2017-02-13] MEDS: predniSONE 20 MG TABLET PO SCH (08:03)
[2017-02-13] MEDS: ENOXAPARIN 30 MG/0.3 ML SYRINGE SUBCUT SCH ×2 (08:03→08:07)
[2017-02-13] MEDS: CALCIUM (CARBONATE) 500 MG TABLET PO SCH ×3 (08:03→17:31)
[2017-02-13] MEDS: ASPIRIN EC 81 MG TABLET PO SCH (08:03)
[2017-02-13] MEDS: CARVEDILOL 25 MG TABLET PO SCH ×2 (08:03→21:38)
[2017-02-13] MEDS: MULTIVITAMIN (BEROCCA) TABLET PO SCH (08:03)
[2017-02-13] MEDS: PANTOPRAZOLE 40 MG TABLET PO SCH (08:03)
[2017-02-13] MEDS: PIPERACILLIN/TAZOBACTAM 3,375 MG in SODIUM CHLORIDE 0.9% 100 ML IV SCH ×2 (08:04→21:55)
--- NOTE | 2017-02-13 09:10 | Hospitalist Progress Note ---
Assessment and Plan (1) Left arm swelling Status: Acute Assessment and plan: Impression: 1. Left arm swelling, improved. This may be an arthritic process 2. End-stage renal disease on dialysis 3. Type II DM 4. Peripheral arterial disease 5. Hypertension Plan: Await formal report of the wrist x-ray. I am not sure that this is an infectious process. Continue current care for chronic problems. This note was completed using [employer] voice recognition software. There may be vice admiral errors as a result. Current Visit: Yes Hospitalist: Subjective Interval history: Follow-up possible cellulitis, type II DM, peripheral arterial disease, end- stage renal disease, and hypertension. Evaluation of the patient's left sided AV fistula was apparently normal. He continues with pain in the forearm. The arm is elevated, and still exhibits some erythema and induration with tenderness to palpation. He says that swelling is improved somewhat. He has had an x-ray of the wrist and forearm. This shows impressive vascular calcification, and we will wait on the formal report. He continues on dialysis on on MWF schedule. He continues to see Dr. Amin for wound care. Exam - Constitutional Vitals: Period Temp Pulse Resp BP Sys/Jo Pulse Ox Last 24 Hr 96.6 F-100.1 F 55-64 18-20 117-150/49-67 91-100 Vital signs are noted above. Heart is regular with a soft systolic murmur. Lungs are fairly clear with no rales or wheezes. Left arm is elevated, and has some induration compared to the opposite side. There is some tenderness of the left wrist. He is missing multiple toes. Both feet are bandaged. He is awake and alert. Results - Labs CBC & BMP: 02/13/17 05:16 02/12/17 05:58 Lab Results: I have reviewed the past 24 hour labs
--- NOTE | 2017-02-13 10:28 | XRay Report ---
Exam: XR wrist 2V LT Date: 02/13/2017 4:31 AM Comparison: 02/06/2017 Indication: Pain and tenderness Technique:[AP and lateral left wrist] Findings: Soft tissue swelling with joint space narrowing with sclerosis. No fracture or dislocation. Diffuse arterial calcifications. Impression: Soft tissue swelling with minimal DJD. No acute fracture dislocation with diffuse arterial calcifications. PROCEDURE INTERPRETED AT [facility] DEPARTMENT OF RADIOLOGY Final Report Signed by: Dr. Ariela Rueda
[2017-02-13] MEDS ORDERED: VANCOMYCIN INJ 750 MG in SODIUM CHLORIDE 0.9% 250 ML IV PRN (14:00)
--- NOTE | 2017-02-13 14:12 | Dialysis Note ---
Dialysis Note - Dialysis Note Mr. Adams is seen during his hemodialysis. He is tolerating dialysis well. His fistulogram demonstrated no outflow stenosis and his wrist x-ray shows no significant bony abnormality but does confirm soft tissue swelling. He is quite tender over the left wrist this is an apparent cellulitis. We will order a triple phase bone scan which should be helpful in confirming the diagnosis of cellulitis. His blood cultures are negative thus far and he remains on Zosyn.
[2017-02-13 14:25] LABS: Hepatitis B Surface Ag Quant < 0.10 Index; Hepatitis B Surface Ag Result Negative (Negative)
[2017-02-13] MEDS ORDERED: VANCOMYCIN INJ 750 MG in SODIUM CHLORIDE 0.9% 250 ML IV ONE (16:00)
[2017-02-13] MEDS: INSULIN GLARGINE 100 UNIT/ML SUBCUT SCH (21:38)
[2017-02-13] MEDS: SIMVASTATIN 20 MG TABLET PO SCH (21:38)
[2017-02-14] MEDS: ENOXAPARIN 30 MG/0.3 ML SYRINGE SUBCUT SCH ×2 (08:34→12:03)
[2017-02-14] MEDS: MULTIVITAMIN (BEROCCA) TABLET PO SCH (08:34)
[2017-02-14] MEDS: ASPIRIN EC 81 MG TABLET PO SCH (08:34)
[2017-02-14] MEDS: PIPERACILLIN/TAZOBACTAM 3,375 MG in SODIUM CHLORIDE 0.9% 100 ML IV SCH ×2 (08:34→22:07)
[2017-02-14] MEDS: CARVEDILOL 25 MG TABLET PO SCH ×2 (08:35→21:18)
[2017-02-14] MEDS: PANTOPRAZOLE 40 MG TABLET PO SCH (08:35)
[2017-02-14] MEDS: CALCIUM (CARBONATE) 500 MG TABLET PO SCH ×3 (08:35→16:31)
[2017-02-14] MEDS: predniSONE 20 MG TABLET PO SCH (08:35)
--- NOTE | 2017-02-14 08:44 | Hospitalist Progress Note ---
Assessment and Plan (1) Left arm swelling Status: Acute Assessment and plan: Impression: 1. Left arm swelling, etiology not clear. I am concerned about a deep infection. 2. End-stage renal disease on dialysis 3. Type II DM 4. Peripheral arterial disease with multiple foot wounds 5. Hypertension Plan: Await bone scan results. Wound care consultation for assistance with management of the chronic foot wounds. Continue current management of chronic medical problems. This note was completed using [employer] voice recognition software. There may be warp knitting machine operator errors as a result. Current Visit: Yes Hospitalist: Subjective Interval history: Follow-up left arm pain, end-stage renal disease, and multiple foot ulcers. The patient continues to complain of pain in the left arm. I reviewed his x-ray , and there are no significant radiographic abnormalities other than the vascular calcifications. Swelling of the soft tissues was also noted. There were no joint abnormalities. The patient continues to complain of pain on the top of the hand when he flexes his third and fourth fingers, pain in the wrist, and pain on the proximal ulnar side of the left forearm. He has requested wound care evaluation. I see that the consultation was written on 02/11, but may have been lost over the long weekend. Nephrology continues to manage his dialysis. He has a small incision overlying the distal left forearm where a primary AV fistula was attempted but aborted due to inadequate marshall circulation. Exam - Constitutional Vitals: Period Temp Pulse Resp BP Sys/Jo Pulse Ox Last 24 Hr 97.8 F-98.4 F 58-77 18-20 134-162/57-78 92-96 Heart is regular with a soft systolic murmur. Chest is clear with no rales or wheezes. Left proximal forearm is tender and indurated over the ulnar aspect. He also has some tenderness on the top of the left hand with worsening to palpation or flexion/extension of the third and fourth digits. Results - Labs CBC & BMP: 02/13/17 05:16 02/12/17 05:58 Lab Results: I have reviewed the past 24 hour labs
--- NOTE | 2017-02-14 09:19 | General Surgery Progress Note ---
Assessment and Plan (1) Left arm swelling Status: Acute Assessment and plan: I suspect that his swelling is from venous hypertension in his left arm. We will admit him and aggressively elevate his arm. We will consult interventional radiology to see about doing a fistulogram to see if there is a venous outflow stenosis. This was not evident on ultrasound but could be a central venous stenosis causing venous hypertension in his extremity. 02/12: He continues to have arm pain though he says this is a little better than last night. I have had his arm aggressively elevated on an IV pole with a stockinette. He does not have much in the way of edema. It is unclear the etiology of his pain whether this is venous hypertension from a central venous stenosis and high pressure related to the fistula or whether or not this could be pain from a steal type syndrome. It would be unusual to get a steal syndrome this far out from creation of the AV fistula. We will have him evaluated by interventional radiology today. 02/13: The edema of the arm itself is completely resolved. The issue appears to be at the wrist and this may be a primary wrist problem. I do not think that there is an underlying vascular issue as his fistulogram and venogram did not show any evidence of obstruction and the arteries appeared normal down to the wrist. We will check x-rays of his wrist. Whether there is a secondary cellulitis is questionable as well. This patient has had a markedly elevated white blood cell count. We will recheck this. 02/14: He continues to complain of pain at his wrist. It is not red it is not edematous. He is tender over his carpal tunnel. He does not have resolution of his pain with compression of the fistula so I do not think that this is a steal syndrome or ischemia. The etiology of this is unclear. He does have a markedly elevated white blood cell count but I cannot really visualize any infection. The edema that he had in this location is resolved. Current Visit: Yes (2) Chronic renal insufficiency, stage IV (severe) Status: Chronic Assessment and plan: He will probably need to be seen by nephrology to manage dialysis Current Visit: No Subjective Patient reports: Present: still having pain. Absent: fever Exam - Constitutional Vitals: Period Temp Pulse Resp BP Sys/Jo Pulse Ox Last 24 Hr 97.8 F-98.4 F 58-77 18-20 134-162/57-78 92-96 General appearance: no acute distress - Respiratory Respiratory exam: Absent: accessory muscle use - Extremities Exam Extremities exam: Present: other (He has exquisite tenderness in his wrist on the volar surface over his carpal tunnel. His fingers do not look ischemic. He does not have resolution of his pain with compression of his fistula.). Absent: edema Results - Labs CBC & BMP: 02/13/17 05:16 02/12/17 05:58 Lab Results: I have reviewed the past 24 hour labs
--- NOTE | 2017-02-14 09:59 | Orthopedic Consult Note ---
History of Present Illness Chief complaint: Left arm pain/ swelling History of present illness: Mr. Adams is a 51 year old male on renal dialysis who has a rather acute onset of soft tissue swelling and pain in the left arm and wrist he states he has had no history of any trauma or injury he has never had a problem with his dialysis access for the past 1 year which is located in the upper left arm. He describes diffuse pain about the hand wrist and forearm which is not dissipated in the past 4872 hours[address] He is seeing Dr. Phipps was asked for consultation based on orders. Examination well developed nourished male he has diffuse swelling in the left arm from the elbow into the hand it is mild to moderate there is no fluctuance point tenderness about the volar or dorsal forearm also no pain with gentle passive motion about the wrist and digits he complains of pain subjectively in the dorsum of the ring and middle metacarpal region and then diffusely in the mid forearm I can appreciate no obvious effusion about the left wrist or any of the lesser digits no clinical symptoms of a septic joint. X-rays left wrist films confirm some mild degenerative changes calcification of the vessels in his wrist and forearm see no acute change no fracture Impression soft tissue swelling left arm Appeared plan I discussed with him my impression I do not think this is an infectious process most likely has something to do with his dialysis even though he says it did not change worsen or get better after hemodialysis yesterday. I discussed with him the usefulness of elevation and even compression if pain continues to be an issue than a Velcro wrist splint could be fitted about the left arm. Based on Dr. Desire Ann note from earlier today he is going to have interventional radiology workup today regarding vascular status in his left arm. Will await those results Home Medications Medication Instructions Recorded Confirmed Type Aspirin [Ecotrin] 81 mg PO DAILY 02/11/17 02/12/17 History Calcium Carbonate 1,000 mg PO TID W/MEALS 02/11/17 02/12/17 History Carvedilol [Coreg] 25 mg PO BID 02/11/17 02/12/17 History Indomethacin [Indomethacin Cap] 25 mg PO TID PRN 02/11/17 02/12/17 History Insulin Aspart [NovoLOG FlexPen] 5 unit SUBCUT TID 02/11/17 02/12/17 History Insulin Detemir [Levemir FlexPen] 65 unit SUBCUT BEDTIME 02/11/17 02/12/17 History hydrALAZINE TAB [Apresoline Tab] 50 mg PO TID 02/11/17 02/12/17 History predniSONE TAB [PredniSONE] 20 mg PO DAILY 02/11/17 02/12/17 History Allergies Allergy/AdvReac Type Severity Reaction Status Date / Time No Known Allergies Allergy Verified 10/04/16 05:13 Medical,Surgical,& Family Hx - Medical History Cardio: History of: CHF (DR MAURICE doesn't take any medications for this.), Hypertension Neurology: No history of: Seizures HEENT: History of: Ear Problem (DEAF LEFT EAR, HEARING AID), Eye Problem ( CATARACTS TAKES SHOTS BLEED BEHIND EYES) Endocrine: History of: Diabetes Mellitus (IDDM) (levemir) Rheumatology: History of;: Rheumatoid Arthritis (knees) Respiratory: History of: Pneumonia (2012) No history of: Respiratory Problems (Flu Vac 2015; ?No Pneum Vac) Renal: History of: Dialysis (m/w/f), Renal Failure (STAGE 4 DR HAIR), Renal Problems (dialysis patient.) Gastrointestinal: History of: GERD No history of: Polyps Musculoskeletal: History of: Amputation (RIGHT FOOT 2nd 3RD 4TH AND 5TH TOE : LEFT FOOT BIG TOE AND 2ND TOE) Hematology: History of: Anemia No history of: Blood Transfusion Reaction Other: History of: MRSA (history of MRSA in foot,), Skin Problems (WOUNDS BOTH FEET-Dr. Amin) No history of: Anesthesia Reactions, Cancer - Surgical History Cardiac Surgeries: Sugical HX of: Vascular Access Devices (Sched for Lt wrist AV Fistula 08/05/15-unsuccessful; again 09/08/15) HEENT Surgeries: Surgical HX of: Eye Surgery (CATARACT SURGERY 2013, LEFT EYE RETINA SURGERY) Abdominal Surgeries: Surgical HX of: Abdominal Surgery, Colonoscopy Reproductive Surgeries: Patient denies;: Genitourinary Surgery - Family History Family History: Reports;: Family Cancer (MOM), Family Diabetes, Family Hypertension (DAD) - Social History Smoking Status: Never smoker Frequency of Alcohol Use: None Type of Drug Use: None Exam - Constitutional Vitals: Period Temp Pulse Resp BP Sys/Jo Pulse Ox Last 24 Hr 97.8 F-98.4 F 58-77 18-20 134-162/57-78 92-96 Results - Labs CBC & BMP: 02/13/17 05:16 02/12/17 05:58
--- NOTE | 2017-02-14 10:38 | Nephrology Progress Note ---
Nephrology - PN: Subj Interval history: Mr. Adams is seen in nuclear medicine during his three-phase bone scan. He is seen in follow-up of his end-stage renal disease and workup of left forearm pain. He has been afebrile over the last 48 hours with the use of Zosyn. His left forearm continues to hurt particularly about the wrist and the three-phase bone scan is being done to look for/confirm cellulitis. The plan is to continue Zofran for now we will plan to dialyze him again tomorrow. Blood cultures thus far are negative Exam (PN)-Nephrology - Vital Signs Vital signs: Period Temp Pulse Resp BP Sys/Jo Pulse Ox Last 24 Hr 97.8 F-98.4 F 58-77 18-20 134-162/57-78 92-96 - Lab 02/13/17 05:16 02/12/17 05:58 Most recent lab results Calcium 9.8 MG/DL (8.5-10.1) 02/12/17 05:58 Assessment and Plan (1) End stage renal disease Status: Chronic Current Visit: No (2) Left arm swelling Status: Acute Current Visit: Yes (3) Diabetes mellitus Status: Acute Current Visit: No
--- NOTE | 2017-02-14 11:26 | Nuclear Medicine Report ---
NM bone 3 phase Indication: Cellulitis of left wrist. Comparison: Left wrist x-ray 02/13/2017. Technique: Following administration of 30 mCi of technetium 99m labeled MDP, imaging of the hands was performed in the anterior projection with images obtained during dynamic flow phase, blood pool phase, and delayed phase. Additional whole body anterior and posterior planar images were obtained. Findings: No asymmetric hyperemic flow is demonstrated in the dynamic phase. Blood pool and delayed phase demonstrates some evidence of asymmetric soft tissue activity involving the left forearm and hand. No focal osseous activity specific for osteomyelitis, however is demonstrated. There does appear to be some increased activity in the 3 hour delayed images involving left wrist carpal bones which is asymmetric compared to the contralateral wrist. Comparison with conventional radiograph demonstrates no focal lesion or specific pattern of demineralization involving the carpal bones of the left wrist. Planar images obtained demonstrate focal areas of increased activity on the anterior projection involving the bilateral possibly sixth ribs as well as left eighth rib and posterior left ninth rib that could reflect evidence of fracture. Bilateral areas of activity in the shoulder girdles additionally are present typically associated with arthritic change. Small focus of activity within the right axilla soft tissues of uncertain significance. Increased activity is noted bilaterally within the cortex of the tibia as well as left mid foot articulations. The left foot may reflect arthritic changes, the appearance of the tibias is nonspecific. Impression: 1. No specific features of acute osteomyelitis are demonstrated. Increased soft tissue activity asymmetric compared to the contralateral forearm is considered compatible with given history of cellulitis of the left arm. 2. Additional areas of activity are present as detailed above. 02/14/2017 11:19 AM PROCEDURE INTERPRETED AT [facility] DEPARTMENT OF RADIOLOGY Final Report Signed by: Dr. Beny Rdz
[2017-02-14] MEDS: INSULIN REGULAR 100 UNIT/ML SUBCUT SCH ×4 (12:19→21:17)
--- NOTE | 2017-02-14 15:45 | Infectious Disease Consult ---
Assessment and Plan (1) Cellulitis Status: Acute Assessment and plan: I think he has cellulitis of the LUE given the erythema, pain and leukocytosis. REcommendations: agree with covering for gram positives including MRSA, with vancomycin. He probably does not need to Zosyn. F/U blood culture results. If the edema and severe leukocytosis do not resolve, we may need to do CT of his LUE to look for deep abscess. THank you very much for the consult. Will follow. Current Visit: Yes (2) Hypertension Status: Acute Current Visit: Yes (3) Diabetes mellitus Status: Acute Current Visit: No (4) Leukocytosis Status: Acute Assessment and plan: Most likely cause is the LUE cellulitis. Can repeat WBC tomorrow. Current Visit: No History of Present Illness Chief complaint: Cellulitis, sepsis History of present illness: Mr. Adams is a 51 year old male with DM and ESRD on HD developed pain and swelling to dorsum of Lt hand about a week ago. It got slowly worst extending up to forearm almost to the elbow. He noticed redness of the affected area. He did not have fever but on admission was note dto have severe leukocytosis. He has been on empiric Zosyn and vancomycin and I am asked to assist with management. At first there was concern that this swelling may be related to obstruction of his HD fistula but vascular studies have ruled this out. THe patient says the redness ands welling are a little less since admission. No other complaints. He does have chronic DM foot ulcers but says these are overall improving. Home Medications Medication Instructions Recorded Confirmed Type Aspirin [Ecotrin] 81 mg PO DAILY 02/11/17 02/12/17 History Calcium Carbonate 1,000 mg PO TID W/MEALS 02/11/17 02/12/17 History Carvedilol [Coreg] 25 mg PO BID 02/11/17 02/12/17 History Indomethacin [Indomethacin Cap] 25 mg PO TID PRN 02/11/17 02/12/17 History Insulin Aspart [NovoLOG FlexPen] 5 unit SUBCUT TID 02/11/17 02/12/17 History Insulin Detemir [Levemir FlexPen] 65 unit SUBCUT BEDTIME 02/11/17 02/12/17 History hydrALAZINE TAB [Apresoline Tab] 50 mg PO TID 02/11/17 02/12/17 History predniSONE TAB [PredniSONE] 20 mg PO DAILY 02/11/17 02/12/17 History Allergies Allergy/AdvReac Type Severity Reaction Status Date / Time No Known Allergies Allergy Verified 10/04/16 05:13 12 point system: reviewed and no additional remarkable complaints except as stated (per HPI) Medical,Surgical,& Family Hx - Medical History Cardio: History of: CHF (DR MAURICE doesn't take any medications for this.), Hypertension Neurology: No history of: Seizures HEENT: History of: Ear Problem (DEAF LEFT EAR, HEARING AID), Eye Problem ( CATARACTS TAKES SHOTS BLEED BEHIND EYES) Endocrine: History of: Diabetes Mellitus (IDDM) (levemir) Rheumatology: History of;: Rheumatoid Arthritis (knees) Respiratory: History of: Pneumonia (2012) No history of: Respiratory Problems (Flu Vac 2015; ?No Pneum Vac) Renal: History of: Dialysis (m/w/f), Renal Failure (STAGE 4 DR HAIR), Renal Problems (dialysis patient.) Gastrointestinal: History of: GERD No history of: Polyps Musculoskeletal: History of: Amputation (RIGHT FOOT 2nd 3RD 4TH AND 5TH TOE : LEFT FOOT BIG TOE AND 2ND TOE) Hematology: History of: Anemia No history of: Blood Transfusion Reaction Other: History of: MRSA (history of MRSA in foot,), Skin Problems (WOUNDS BOTH FEET-Dr. Amin) No history of: Anesthesia Reactions, Cancer - Surgical History Cardiac Surgeries: Sugical HX of: Vascular Access Devices (Sched for Lt wrist AV Fistula 08/05/15-unsuccessful; again 09/08/15) HEENT Surgeries: Surgical HX of: Eye Surgery (CATARACT SURGERY 2013, LEFT EYE RETINA SURGERY) Abdominal Surgeries: Surgical HX of: Abdominal Surgery, Colonoscopy Reproductive Surgeries: Patient denies;: Genitourinary Surgery - Family History Family History: Reports;: Family Cancer (MOM), Family Diabetes, Family Hypertension (DAD) - Social History Smoking Status: Never smoker Frequency of Alcohol Use: None Type of Drug Use: None Infectious Disease Exam H&P - Constitutional Vitals: Vital Signs Temp Pulse Resp BP Pulse Ox 96.4 F L 59 L 18 177/76 93 L 02/14/17 12:00 02/14/17 12:00 02/14/17 12:00 02/14/17 12:00 02/14/17 12:00 Intake and Output 02/13/17 02/14/17 02/14/17 23:59 07:59 15:59 Intake Total 350 / 350 100 / 100 Output Total 0 / 0 0 / 0 Balance 350 / 350 100 / 100 Intake: IV 350 / 350 100 / 100 Zosyn 3,375 mg In Ns 100 100 / 100 100 / 100 ml @ 25 mls/hr IV Q12H [place] Rx#:[id number] Vancomycin Inj 1,000 mg 250 / 250 In Ns 250 ml @ 250 mls/hr IV ONCE ONE Rx#: [id number] Output: Stool 0 / 0 0 / 0 Other: Emesis 0 0 Voiding Method Toilet Toilet # Voids 1 1 1 Exam: General: Patient relatively comfortable, non-toxic appearing HEENT: Mucous membranes pink and moist, anicteric acyanotic, YOLANDA, no oropharyngeal exudates Neck: Supple, no thyroid gland enlargement, no lymphadenopathy Respiratory system: Breath sounds vesicular, no crepitations or wheezes Cardiovascular: Normal S1 and S2, no murmurs appreciated Abdomen: Normal bowel sounds, soft nontender throughout, no organomegaly or mass Genitourinary: No suprapubic pain or bladder distention Extremities: sigificant findings confined to LUE - there is diffuse edema, there is erythema to dorsum of hand and distal forearm as well as hyperemia and there areaof distal forearm and wrist is quite tender to touch. No open wound. Skin: No rash Reports - Labs CBC & BMP: 02/13/17 05:16 02/12/17 05:58 Labs: Laboratory Results - last 24 hr 02/11/17 02/13/17 02/13/17 21:06 15:18 21:03 POC Glucose 318 H 218 H 377 H 02/14/17 02/14/17 02/14/17 07:30 11:20 15:26 POC Glucose 282 H 326 H 487 H - Impressions bone scan and Lt forearm xray unremarkable
[2017-02-14] MEDS: INSULIN GLARGINE 100 UNIT/ML SUBCUT SCH (21:16)
[2017-02-14] MEDS: SIMVASTATIN 20 MG TABLET PO SCH (21:18)
--- NOTE | 2017-02-15 08:39 | General Surgery Progress Note ---
Assessment and Plan (1) Left arm swelling Status: Acute Assessment and plan: I suspect that his swelling is from venous hypertension in his left arm. We will admit him and aggressively elevate his arm. We will consult interventional radiology to see about doing a fistulogram to see if there is a venous outflow stenosis. This was not evident on ultrasound but could be a central venous stenosis causing venous hypertension in his extremity. 02/12: He continues to have arm pain though he says this is a little better than last night. I have had his arm aggressively elevated on an IV pole with a stockinette. He does not have much in the way of edema. It is unclear the etiology of his pain whether this is venous hypertension from a central venous stenosis and high pressure related to the fistula or whether or not this could be pain from a steal type syndrome. It would be unusual to get a steal syndrome this far out from creation of the AV fistula. We will have him evaluated by interventional radiology today. 02/13: The edema of the arm itself is completely resolved. The issue appears to be at the wrist and this may be a primary wrist problem. I do not think that there is an underlying vascular issue as his fistulogram and venogram did not show any evidence of obstruction and the arteries appeared normal down to the wrist. We will check x-rays of his wrist. Whether there is a secondary cellulitis is questionable as well. This patient has had a markedly elevated white blood cell count. We will recheck this. 02/14: He continues to complain of pain at his wrist. It is not red it is not edematous. He is tender over his carpal tunnel. He does not have resolution of his pain with compression of the fistula so I do not think that this is a steal syndrome or ischemia. The etiology of this is unclear. He does have a markedly elevated white blood cell count but I cannot really visualize any infection. The edema that he had in this location is resolved. 02/15: I think it is clear that this is an infectious problem and not a vascular problem. He is on vancomycin. I think that a CT scan may be helpful to look for deep space abscess or infection. Current Visit: Yes (2) Chronic renal insufficiency, stage IV (severe) Status: Chronic Assessment and plan: He will probably need to be seen by nephrology to manage dialysis Current Visit: No Subjective Patient reports: Present: still having pain, fever Exam - Constitutional Vitals: Period Temp Pulse Resp BP Sys/Jo Pulse Ox Last 24 Hr 96.4 F-98.8 F 55-86 18-20 158-205/60-90 93-98 General appearance: no acute distress - Head Head exam: Present: normocephalic - Extremities Exam Extremities exam: Present: other (Redness and tenderness mostly at the level of the wrist and distal forearm. His hand really appears normal. This does not look ischemic.). Absent: edema Results - Labs CBC & BMP: 02/13/17 05:16 02/12/17 05:58 Lab Results: I have reviewed the past 24 hour labs
[2017-02-15 08:49] LABS: Basophils % 0.1 % (0.0-0.8); Eosinophils # 0.2 10*3/uL (0.0-0.87); Hematocrit 24.2 VOL% (42.0-52.0); Hemoglobin 8.3 GM/DL (14.0-18.0); Immature Granulocytes % 0.9 %; Immature Granulocytes Absolute 0.14 #; Lymphocytes # 1.7 10*3/uL (1.4-4.0); Lymphocytes % 10.9 % (21.2-54.2); Mean Corpuscular HGB Conc 34.3 GM/DL (32-36); Mean Corpuscular Hemoglobin 32 PG (27-34); Mean Corpuscular Volume 93.8 FL (87-102); Mean Platelet Volume 9.8 FL (9.6-12.0); Monocytes # 1.2 10*3/uL (0.11-0.8); Monocytes % 7.8 % (1.7-12.7); Neutrophils # 12.4 10*3/uL (1.4-7.4); Neutrophils % 79.3 % (38.7-73.9); Platelet Count 269 T/CUMM (130-400); Red Blood Count 2.58 MC/CUMM (3.8-5.5); Red Cell Distribution Width 15.1 % (9.3-17.3); White Blood Count 15.6 T/CUMM (4-12)
[2017-02-15] MEDS: INSULIN REGULAR 100 UNIT/ML SUBCUT SCH ×4 (08:51→21:05)
[2017-02-15] MEDS: PANTOPRAZOLE 40 MG TABLET PO SCH (08:52)
[2017-02-15] MEDS: CALCIUM (CARBONATE) 500 MG TABLET PO SCH ×3 (08:52→18:17)
[2017-02-15] MEDS: ASPIRIN EC 81 MG TABLET PO SCH (08:52)
[2017-02-15] MEDS: MULTIVITAMIN (BEROCCA) TABLET PO SCH (08:52)
[2017-02-15] MEDS: predniSONE 20 MG TABLET PO SCH (08:52)
[2017-02-15] MEDS: CARVEDILOL 25 MG TABLET PO SCH ×2 (08:52→21:05)
--- NOTE | 2017-02-15 08:54 | Hospitalist Progress Note ---
Assessment and Plan (1) Left arm swelling Status: Acute Assessment and plan: Impression: 1. Left arm swelling. 2. End-stage renal disease on dialysis 3. Type II DM 4. Peripheral arterial disease with multiple foot wounds 5. Hypertension Plan: Surgery has ordered a CT, and we will await those results. I reminded the patient's nurse about the wound care consultation. Continue current management of chronic medical problems. This note was completed using [employer] voice recognition software. There may be detail manager errors as a result. Current Visit: Yes Hospitalist: Subjective Interval history: Follow-up left arm pain, ESRD, peripheral arterial disease, type II DM Patient says that his left arm is still sore. Bone scan showed evidence of cellulitis, without any bony infection being demonstrated. Surgery has already seen the patient, and has ordered a CT of the arm to rule out a deep space infection. Wound care has not yet seen the patient. Exam - Constitutional Vitals: Period Temp Pulse Resp BP Sys/Jo Pulse Ox Last 24 Hr 96.4 F-98.8 F 55-86 18-20 158-205/60-90 93-98 Vital signs are noted above. Heart is regular with a soft systolic murmur. Chest is clear with no rales or wheezes. Left upper extremity reveals some tenderness to palpation over the top of the hand and in the ulnar aspect of the left forearm as described above. He does not have any erythema, but the induration persists, unchanged from yesterday. Feet are bandaged. He is awake and alert Results - Labs CBC & BMP: 02/13/17 05:16 02/12/17 05:58
[2017-02-15] MEDS: ENOXAPARIN 30 MG/0.3 ML SYRINGE SUBCUT SCH (08:55)
--- NOTE | 2017-02-15 10:31 | CT Report ---
CT forearm LT w con Indication: Painful swollen wrist. Comparison: Left wrist x-ray 02/13/2017. Technique: Multiple contiguous axial images of the left arm and a portion of the abdomen was obtained following administration of intravenous contrast. Findings: Suboptimal imaging of the forearm is present secondary to large field of view utilized as well as inclusion of a portion of the abdomen. Anatomic detail of the imaged extremity is diminished. No displaced fractures involving the radius or ulna are demonstrated. Anatomic relationship of the carpal bones is grossly normal. There does appear to be soft tissue swelling along the extensor tendons of the hand and wrist. Small focal lucency is additionally a superimposed suggesting possible air or focal fat particularly along the ulnar aspect of the extensor surfaces. No discrete abscess can be identified. There may be some evidence of dermal thickening along the hand. Diffuse arterial calcifications noted throughout the radial and ulnar arteries. Impression: 1. No displaced fractures are present. Nondisplaced fractures are not excluded. 2. Soft tissue swelling is suggested to most involve the extensor surface of the left hand and wrist. Differential considerations include posttraumatic etiologies as well as infectious etiologies. Focal areas of hypoattenuation within the more ulnar soft tissues could reflect small foci of air or fat. Individual tendons cannot be identified. 02/15/2017 10:23 AM PROCEDURE INTERPRETED AT [facility] DEPARTMENT OF RADIOLOGY Final Report Signed by: Dr. Beny Rdz
--- NOTE | 2017-02-15 11:31 | Infectious Disease Progress ---
Assessment and Plan (1) Cellulitis Status: Acute Assessment and plan: Severe cellulitis of the left hand and forearm. No associated abscess noted on the CT however the CT was noted to be not of the best quality. His white blood cell count has improved a bit today. REcommendations: Continue vancomycin therapy and monitor his left upper extremity. Hopefully the leukocytosis continues to improve however if the tense swelling persists he may need surgical exploration. Current Visit: Yes (2) Hypertension Status: Acute Current Visit: Yes (3) Diabetes mellitus Status: Acute Current Visit: No (4) Leukocytosis Status: Acute Assessment and plan: Most likely cause is the LUE cellulitis. It is improved somewhat today. Current Visit: No Infectious Disease - PN: Subj Interval history: Patient still has severe pain to left wrist and forearm. He has not had any fever. Infectious Disease Exam (PN) - Constitutional Vitals: Temp Pulse Resp BP Pulse Ox 97.9 F 55 L 18 159/67 94 L 02/15/17 07:46 02/15/17 07:46 02/15/17 07:46 02/15/17 07:46 02/15/17 07:46 General appearance: no acute distress Exam: General appearance: no acute distress - Eye Eye exam: Present: EOMI. no icterus Pupils: Present: YOLANDA - ENT ENT exam: no oral exudates - Respiratory Respiratory exam: vesicular BS, no crepitations or wheezes - Cardiovascular Cardiovascular exam: regular rate and rhythm, no murmurs - GI/Abdominal GI/Abdominal exam: normal bowel sounds, soft, non-tender, no organomegaly or mass - Extremities Exam Extremities exam: Still with severe edema and hyperemia to the left hand and forearm, there is erythema over the dorsum of the hand and wrist extended to the distal forearm. There is induration and that extremities quite tender to touch. - Skin Skin exam: no rash Results - Labs CBC & BMP: 02/15/17 08:42 02/12/17 05:58 Lab Results: I have reviewed the past 24 hour labs (Blood cultures remain negative to date) - Diagnostic Findings Procedure: CT: report reviewed by me (CT left upper extremity showed no discrete abscess)
--- NOTE | 2017-02-15 11:34 | Orthopedic Progress Note ---
Orthopedics - Subjective Interval history: Still diffusely swollen with some erythema most appreciated today over the dorsum of the hand. Is able to gentle is able to tolerate gentle passive range of motion and active motion of the digits and wrist no clinical evidence of a septic joint. CT scan was ordered to look for abscess today. Still looks like a cellulitis Exam - Constitutional Vitals: Period Temp Pulse Resp BP Sys/Jo Pulse Ox Last 24 Hr 96.4 F-98.8 F 55-86 18-20 158-205/60-90 93-98 Results - Labs CBC & BMP: 02/15/17 08:42 02/12/17 05:58
--- NOTE | 2017-02-15 13:06 | Dialysis Note ---
Dialysis Note - Dialysis Note Patient seen on hemodialysis he is tolerating this well will continue his treatment unchanged.
[2017-02-15] MEDS ORDERED: VANCOMYCIN INJ 750 MG in SODIUM CHLORIDE 0.9% 250 ML IV ONE (17:00)
[2017-02-15] MEDS: SIMVASTATIN 20 MG TABLET PO SCH (21:05)
[2017-02-15] MEDS: INSULIN GLARGINE 100 UNIT/ML SUBCUT SCH (21:05)
[2017-02-16] MEDS: MULTIVITAMIN (BEROCCA) TABLET PO SCH (08:12)
[2017-02-16] MEDS: ENOXAPARIN 30 MG/0.3 ML SYRINGE SUBCUT SCH ×2 (08:12→08:16)
[2017-02-16] MEDS: INSULIN REGULAR 100 UNIT/ML SUBCUT SCH ×4 (08:12→20:34)
[2017-02-16] MEDS: CALCIUM (CARBONATE) 500 MG TABLET PO SCH ×3 (08:12→17:32)
[2017-02-16] MEDS: CARVEDILOL 25 MG TABLET PO SCH ×2 (08:13→20:34)
[2017-02-16] MEDS: ASPIRIN EC 81 MG TABLET PO SCH (08:13)
[2017-02-16] MEDS: PANTOPRAZOLE 40 MG TABLET PO SCH (08:13)
[2017-02-16] MEDS: predniSONE 20 MG TABLET PO SCH (08:13)
--- NOTE | 2017-02-16 08:15 | Hospitalist Progress Note ---
Assessment and Plan (1) Left arm swelling Status: Acute Assessment and plan: Impression: 1. Left arm swelling. 2. End-stage renal disease on dialysis 3. Type II DM 4. Peripheral arterial disease with multiple foot wounds 5. Hypertension Plan: I will review the CT with radiology to be sure there is nothing requiring surgical drainage. Continue current care of chronic problems. This note was completed using [employer] voice recognition software. There may be employee benefits manager errors as a result. Current Visit: Yes Hospitalist: Subjective Interval history: Follow-up left arm pain, ESRD, type II DM, hypertension, and bilateral foot ulcers. The patient continues with pain in the left forearm. It is essentially unchanged over the past several days. CT did not show a definite abscess. Wound care has evaluated and bandaged his feet. Exam - Constitutional Vitals: Period Temp Pulse Resp BP Sys/Jo Pulse Ox Last 24 Hr 97.9 F-98.6 F 56-65 18-20 133-195/64-80 96-98 Vital signs are noted above. Heart is regular with a soft systolic murmur. Chest is clear with no rales or wheezes. The left upper extremity is unchanged. He may have a little erythema over the ulnar side of the back of the hand and the wrist He is awake and alert Results - Labs CBC & BMP: 02/15/17 08:42 02/12/17 05:58
--- NOTE | 2017-02-16 08:49 | Nephrology Progress Note ---
Nephrology - PN: Subj Interval history: Mr. Adams is seen in follow-up of his end-stage renal disease. He dialyzes Monday and is receiving vancomycin with dialysis. He continues to complain of left wrist hand and forearm pain. There is significant tenderness in that area and swelling. CT of the forearm confirmed the swelling but that did not show any focal abscess. Will continue with his current antibiotics. Exam (PN)-Nephrology - Vital Signs Vital signs: Period Temp Pulse Resp BP Sys/Jo Pulse Ox Last 24 Hr 97.9 F-98.6 F 56-65 18-20 133-195/64-80 96-98 - Lab 02/15/17 08:42 02/12/17 05:58 Most recent lab results Calcium 9.8 MG/DL (8.5-10.1) 02/12/17 05:58 Assessment and Plan (1) End stage renal disease Status: Chronic Current Visit: No (2) Left arm swelling Status: Acute Current Visit: Yes (3) Diabetes mellitus Status: Acute Current Visit: No
--- NOTE | 2017-02-16 09:27 | General Surgery Progress Note ---
Assessment and Plan - Time spent with patient Time spent with patient: Less than 30 minutes (1) Left arm swelling Status: Acute Assessment and plan: I suspect that his swelling is from venous hypertension in his left arm. We will admit him and aggressively elevate his arm. We will consult interventional radiology to see about doing a fistulogram to see if there is a venous outflow stenosis. This was not evident on ultrasound but could be a central venous stenosis causing venous hypertension in his extremity. 02/12: He continues to have arm pain though he says this is a little better than last night. I have had his arm aggressively elevated on an IV pole with a stockinette. He does not have much in the way of edema. It is unclear the etiology of his pain whether this is venous hypertension from a central venous stenosis and high pressure related to the fistula or whether or not this could be pain from a steal type syndrome. It would be unusual to get a steal syndrome this far out from creation of the AV fistula. We will have him evaluated by interventional radiology today. 02/13: The edema of the arm itself is completely resolved. The issue appears to be at the wrist and this may be a primary wrist problem. I do not think that there is an underlying vascular issue as his fistulogram and venogram did not show any evidence of obstruction and the arteries appeared normal down to the wrist. We will check x-rays of his wrist. Whether there is a secondary cellulitis is questionable as well. This patient has had a markedly elevated white blood cell count. We will recheck this. 02/14: He continues to complain of pain at his wrist. It is not red it is not edematous. He is tender over his carpal tunnel. He does not have resolution of his pain with compression of the fistula so I do not think that this is a steal syndrome or ischemia. The etiology of this is unclear. He does have a markedly elevated white blood cell count but I cannot really visualize any infection. The edema that he had in this location is resolved. 02/15: I think it is clear that this is an infectious problem and not a vascular problem. He is on vancomycin. I think that a CT scan may be helpful to look for deep space abscess or infection. 02/16: He continues to have pain. The pain that he describes is more impressive than the appearance of his arm. His mild swelling and faint hint of erythema is located mostly on the dorsal aspect of his wrist and proximal hand. There is minimal tenderness of his forearm musculature. There is really no signs of cyanosis that I can appreciate. I think that his problem is primarily infectious. His white blood cell count is down some and if he remains afebrile. We are continuing vancomycin. CT scan did not show any deep space infection or abscess. I think that it would be worthwhile normally I would check finger pressures but we do not have the capability to do this in the hospital. I can check to see if it is possible to send him from the hospital to my office to have this done in our vascular lab. Current Visit: Yes (2) Chronic renal insufficiency, stage IV (severe) Status: Chronic Assessment and plan: He will probably need to be seen by nephrology to manage dialysis Current Visit: No Subjective Patient reports: Present: still having pain. Absent: nausea, vomiting, fever Exam - Constitutional Vitals: Period Temp Pulse Resp BP Sys/Jo Pulse Ox Last 24 Hr 97.9 F-98.6 F 56-65 18-20 133-195/64-80 96-98 General appearance: no acute distress - Respiratory Respiratory exam: Absent: accessory muscle use - Extremities Exam Extremities exam: Present: edema (Minimal), other (He has tenderness mostly at the level of the wrist and there is focal swelling and erythema at this point which is mild.) Results - Labs CBC & BMP: 02/15/17 08:42 02/12/17 05:58 Lab Results: I have reviewed the past 24 hour labs
--- NOTE | 2017-02-16 16:34 | Infectious Disease Progress ---
Assessment and Plan (1) Cellulitis Status: Acute Assessment and plan: Severe cellulitis of the left hand and forearm. To me the cellulitis has not improved significantly over the past 2-3 days. No associated abscess noted on the CT however the CT was noted to be not of the best quality. His white blood cell count is improving and he is actually not having any fever. REcommendations: Continue vancomycin therapy and monitor his left upper extremity. Though the leukocytosis has improved because the patient still has significant swelling pain and even redness to the forearm and hand, I am going to add the Zosyn, renally dosed at 2.25 g every 8 hours. Current Visit: Yes (2) Hypertension Status: Acute Current Visit: Yes (3) Diabetes mellitus Status: Acute Current Visit: No (4) Leukocytosis Status: Acute Assessment and plan: Most likely cause is the LUE cellulitis. It is improving. Current Visit: No Infectious Disease - PN: Subj Interval history: Patient still having severe pain and swelling to left hand and forearm. He has not had any fever. Denies nausea vomiting diarrhea on antibiotics. Infectious Disease Exam (PN) - Constitutional Vitals: Temp Pulse Resp BP Pulse Ox 98.4 F 53 L 18 155/68 96 02/16/17 11:47 02/16/17 11:47 02/16/17 11:47 02/16/17 11:47 02/16/17 11:47 General appearance: no acute distress Exam: General appearance: no acute distress - Eye Eye exam: Present: EOMI. no icterus Pupils: Present: YOLANDA - ENT ENT exam: no oral exudates - Respiratory Respiratory exam: vesicular BS, no crepitations or wheezes - Cardiovascular Cardiovascular exam: regular rate and rhythm, no murmurs - GI/Abdominal GI/Abdominal exam: normal bowel sounds, soft, non-tender, no organomegaly or mass - Extremities Exam Extremities exam: The left hand and forearm edema seems worse to me today than yesterday. The hyperemia is the same or maybe slightly better. There is specific tenderness on palpation of the whole area feels very firm. - Skin Skin exam: no rash Results - Labs CBC & BMP: 02/15/17 08:42 02/12/17 05:58 Lab Results: I have reviewed the past 24 hour labs (Blood cultures negative to date)
[2017-02-16] MEDS ORDERED: PIPERACILLIN/TAZOBACTAM 2,250 MG in SODIUM CHLORIDE 0.9% 100 ML IV SCH (17:00)
[2017-02-16] MEDS: PIPERACILLIN/TAZOBACTAM 3,375 MG in SODIUM CHLORIDE 0.9% 100 ML IV SCH (17:32)
[2017-02-16] MEDS: INSULIN GLARGINE 100 UNIT/ML SUBCUT SCH (20:34)
[2017-02-16] MEDS: SIMVASTATIN 20 MG TABLET PO SCH (20:34)
[2017-02-17] MEDS: PIPERACILLIN/TAZOBACTAM 3,375 MG in SODIUM CHLORIDE 0.9% 100 ML IV SCH ×2 (05:10→19:02)
[2017-02-17 08:00] LABS: Basophils % 0.2 % (0.0-0.8); Eosinophils # 0.2 10*3/uL (0.0-0.87); Eosinophils % 1.5 % (0.00-10.9); Hematocrit 23.8 VOL% (42.0-52.0); Hemoglobin 8.2 GM/DL (14.0-18.0); Immature Granulocytes % 1.8 %; Immature Granulocytes Absolute 0.26 #; Lymphocytes # 1.9 10*3/uL (1.4-4.0); Lymphocytes % 12.5 % (21.2-54.2); Mean Corpuscular HGB Conc 34.5 GM/DL (32-36); Mean Corpuscular Hemoglobin 32 PG (27-34); Mean Corpuscular Volume 93.3 FL (87-102); Mean Platelet Volume 9.2 FL (9.6-12.0); Monocytes # 1.2 10*3/uL (0.11-0.8); Monocytes % 7.7 % (1.7-12.7); Neutrophils # 11.3 10*3/uL (1.4-7.4); Neutrophils % 76.3 % (38.7-73.9); Platelet Count 276 T/CUMM (130-400); Red Blood Count 2.55 MC/CUMM (3.8-5.5); White Blood Count 14.9 T/CUMM (4-12)
--- NOTE | 2017-02-17 08:20 | Hospitalist Progress Note ---
Assessment and Plan - Time spent with patient Time spent with patient: Greater than 30 minutes (1) Diabetes mellitus type 2 in obese Status: Chronic Assessment and plan: We will continue current antibiotics per infectious disease recommendation, monitor progress. Keep left upper extremity elevated. Pain control. Surgery follow-up, possible pressure testing. Add lispro insulin 3 times daily before meals for better blood glucose control as this will also aid in healing. Wound care following. Nephrology follow-up with scheduled hemodialysis. DVT prophylaxis. This note has been prepared by [employer] voice recognition software, there may be system safety manager errors as a result. Current Visit: No (2) End stage renal disease Status: Chronic Current Visit: No (3) Leukocytosis Status: Acute Current Visit: No (4) Left arm swelling Status: Acute Current Visit: Yes (5) Hypertension Status: Acute Current Visit: Yes Hospitalist: Subjective Interval history: 51-year-old diabetic who is being managed for managed for left upper extremity severe cellulitis. Because of his slow improvement pain has required a CT scan to rule out deep-seated abscess. CT scan is negative for any abscess. I appreciate surgery is planned for possible transfer to office to have pressure done since there is no equipment in the hospital for that testing. No fever noted this morning, leukocytosis has been steadily trending down. Blood glucose is uncontrolled likely made was because of acute infection. Exam - Constitutional Vitals: Period Temp Pulse Resp BP Sys/Jo Pulse Ox Last 24 Hr 97.4 F-98.4 F 53-66 16-20 148-188/64-88 96-99 Results - Labs CBC & BMP: 02/17/17 07:51 02/17/17 07:51
--- NOTE | 2017-02-17 08:31 | General Surgery Progress Note ---
Assessment and Plan (1) Left arm swelling Status: Acute Assessment and plan: I suspect that his swelling is from venous hypertension in his left arm. We will admit him and aggressively elevate his arm. We will consult interventional radiology to see about doing a fistulogram to see if there is a venous outflow stenosis. This was not evident on ultrasound but could be a central venous stenosis causing venous hypertension in his extremity. 02/12: He continues to have arm pain though he says this is a little better than last night. I have had his arm aggressively elevated on an IV pole with a stockinette. He does not have much in the way of edema. It is unclear the etiology of his pain whether this is venous hypertension from a central venous stenosis and high pressure related to the fistula or whether or not this could be pain from a steal type syndrome. It would be unusual to get a steal syndrome this far out from creation of the AV fistula. We will have him evaluated by interventional radiology today. 02/13: The edema of the arm itself is completely resolved. The issue appears to be at the wrist and this may be a primary wrist problem. I do not think that there is an underlying vascular issue as his fistulogram and venogram did not show any evidence of obstruction and the arteries appeared normal down to the wrist. We will check x-rays of his wrist. Whether there is a secondary cellulitis is questionable as well. This patient has had a markedly elevated white blood cell count. We will recheck this. 02/14: He continues to complain of pain at his wrist. It is not red it is not edematous. He is tender over his carpal tunnel. He does not have resolution of his pain with compression of the fistula so I do not think that this is a steal syndrome or ischemia. The etiology of this is unclear. He does have a markedly elevated white blood cell count but I cannot really visualize any infection. The edema that he had in this location is resolved. 02/15: I think it is clear that this is an infectious problem and not a vascular problem. He is on vancomycin. I think that a CT scan may be helpful to look for deep space abscess or infection. 02/16: He continues to have pain. The pain that he describes is more impressive than the appearance of his arm. His mild swelling and faint hint of erythema is located mostly on the dorsal aspect of his wrist and proximal hand. There is minimal tenderness of his forearm musculature. There is really no signs of cyanosis that I can appreciate. I think that his problem is primarily infectious. His white blood cell count is down some and if he remains afebrile. We are continuing vancomycin. CT scan did not show any deep space infection or abscess. I think that it would be worthwhile normally I would check finger pressures but we do not have the capability to do this in the hospital. I can check to see if it is possible to send him from the hospital to my office to have this done in our vascular lab. 02/17: He still complains of pain in his wrist. We have looked for deep space infection. I have repeated a detailed vascular exam where he has a normal Castillo 's test and no augmentation of his flow that I can appreciate by Doppler with compression of his fistula. I do not think this represents a steal syndrome. I do not think that this is an ischemic problem. I think that this is infectious. I do not have evidence of an abscess or necrotizing infection Current Visit: Yes (2) Chronic renal insufficiency, stage IV (severe) Status: Chronic Assessment and plan: He will probably need to be seen by nephrology to manage dialysis Current Visit: No Subjective Patient reports: Present: feels better, still having pain, pain is less. Absent : fever Exam - Constitutional Vitals: Period Temp Pulse Resp BP Sys/Jo Pulse Ox Last 24 Hr 97.4 F-98.4 F 53-66 16-20 148-188/64-88 96-99 General appearance: no acute distress - Respiratory Respiratory exam: Absent: accessory muscle use - Extremities Exam Extremities exam: Present: other (He still has tunnels of his wrist and a faint erythema. I did a detailed vascular exam once again. He has Doppler flow in his palmar arch. He has and to get grade flow at the wrist in both his radial and ulnar arteries. By Doppler I cannot tell that his flow is really augmented with compression of his fistula. I see no evidence of ischemia.). Absent: edema Results - Labs CBC & BMP: 02/17/17 07:51 02/12/17 05:58
[2017-02-17] MEDS ORDERED: SODIUM CHLORIDE 0.9% 250 ML IV PRN (08:33)
[2017-02-17] MEDS: MULTIVITAMIN (BEROCCA) TABLET PO SCH (08:35)
[2017-02-17] MEDS: ENOXAPARIN 30 MG/0.3 ML SYRINGE SUBCUT SCH (08:35)
[2017-02-17] MEDS: CALCIUM (CARBONATE) 500 MG TABLET PO SCH ×3 (08:35→19:02)
[2017-02-17] MEDS: ASPIRIN EC 81 MG TABLET PO SCH (08:35)
[2017-02-17] MEDS: CARVEDILOL 25 MG TABLET PO SCH ×3 (08:35→22:05)
[2017-02-17] MEDS: PANTOPRAZOLE 40 MG TABLET PO SCH (08:35)
[2017-02-17] MEDS: predniSONE 20 MG TABLET PO SCH (08:35)
[2017-02-17] MEDS: INSULIN REGULAR 100 UNIT/ML SUBCUT SCH ×4 (08:36→22:03)
--- NOTE | 2017-02-17 08:37 | Nephrology Progress Note ---
Nephrology - PN: Subj Interval history: Mr. Adams is seen in follow-up of his end-stage renal disease. He will be dialyzed today and receive vancomycin again. His left wrist and forearm remain tender swollen and sore. No evidence of an abscess is been found with CT. The triple phase bone scan suggested cellulitis which is what this looks like clinically. He has not improved with current therapy. Zosyn has been restarted and he continues to receive vancomycin. As per Dr. Desire Ann no, a vascular problem seems unlikely. There is no localized fluid collection visible or seen on imaging studies. Blood cultures have been negative. Exam (PN)-Nephrology - Vital Signs Vital signs: Period Temp Pulse Resp BP Sys/Jo Pulse Ox Last 24 Hr 97.4 F-98.4 F 53-66 16-20 148-188/64-88 96-99 - Lab 02/17/17 07:51 02/12/17 05:58 Most recent lab results Calcium 9.8 MG/DL (8.5-10.1) 02/12/17 05:58 Assessment and Plan (1) End stage renal disease Status: Chronic Current Visit: No (2) Left arm swelling Status: Acute Current Visit: Yes (3) Diabetes mellitus Status: Acute Current Visit: No
[2017-02-17 08:45] LABS: Calcium 7.5 MG/DL (8.5-10.1); Potassium 3.7 MMOL/L (3.5-5.1)
--- NOTE | 2017-02-17 09:43 | Dialysis Note ---
Dialysis Note - Dialysis Note Patient seen on hemodialysis, he is tolerating this well will continue his treatment unchanged.
--- NOTE | 2017-02-17 10:44 | Infectious Disease Progress ---
Assessment and Plan (1) Cellulitis Status: Acute Assessment and plan: Severe cellulitis of the left hand and forearm, very slow to resolve. No associated abscess noted on the CT however the CT was noted to be not of the best quality. His white blood cell count is improving and he is not having any fever. REcommendations: Continue vancomycin and Zosyn. We will see how he is doing on Monday. Current Visit: Yes (2) Hypertension Status: Acute Current Visit: Yes (3) Diabetes mellitus Status: Acute Current Visit: No (4) Leukocytosis Status: Acute Assessment and plan: Most likely cause is the LUE cellulitis. It is improving. Current Visit: No Infectious Disease - PN: Subj Interval history: Patient doing fair, more or less the same as yesterday. He still has significant swelling and pain of the left forearm and wrist. He has not had fever. No other complaints. Infectious Disease Exam (PN) - Constitutional Vitals: Temp Pulse Resp BP Pulse Ox 97.4 F L 55 L 18 148/69 99 02/17/17 08:00 02/17/17 08:00 02/17/17 08:00 02/17/17 08:00 02/17/17 08:00 General appearance: no acute distress Exam: General appearance: no acute distress, was getting dialysis - Eye Eye exam: Present: EOMI. no icterus Pupils: Present: YOLANDA - ENT ENT exam: no oral exudates - Respiratory Respiratory exam: vesicular BS, no crepitations or wheezes - Cardiovascular Cardiovascular exam: regular rate and rhythm, no murmurs - GI/Abdominal GI/Abdominal exam: normal bowel sounds, soft, non-tender, no organomegaly or mass - Extremities Exam Extremities exam: The left hand and forearm edema seems incrementally better today than yesterday. The hyperemia is the same. There is still significant tenderness on palpation of the whole area feels very firm. - Skin Skin exam: no rash Results - Labs CBC & BMP: 02/17/17 07:51 02/17/17 07:51 Lab Results: I have reviewed the past 24 hour labs
[2017-02-17] MEDS: INSULIN LISPRO 100 UNIT/ML SUBCUT SCH ×2 (13:07→19:02)
[2017-02-17] MEDS ORDERED: SKIN HEALING OINT (AQUAPHOR) 50 GM TUBE TOP PRN (13:57)
[2017-02-17] MEDS: COLLAGENASE OINT 30 GM TUBE TOP SCH (14:22)
[2017-02-17] MEDS ORDERED: VANCOMYCIN INJ 750 MG in SODIUM CHLORIDE 0.9% 250 ML IV ONE (21:00)
[2017-02-17] MEDS: INSULIN GLARGINE 100 UNIT/ML SUBCUT SCH (22:04)
[2017-02-17] MEDS: SIMVASTATIN 20 MG TABLET PO SCH (22:05)
[2017-02-18 05:37] LABS: Basophils % 0.2 % (0.0-0.8); Eosinophils # 0.2 10*3/uL (0.0-0.87); Hematocrit 28.9 VOL% (42.0-52.0); Hemoglobin 9.9 GM/DL (14.0-18.0); Immature Granulocytes % 1.5 %; Immature Granulocytes Absolute 0.22 #; Lymphocytes # 1.6 10*3/uL (1.4-4.0); Lymphocytes % 11.2 % (21.2-54.2); Mean Corpuscular HGB Conc 34.3 GM/DL (32-36); Mean Corpuscular Hemoglobin 32 PG (27-34); Mean Corpuscular Volume 93.5 FL (87-102); Mean Platelet Volume 9.6 FL (9.6-12.0); Monocytes # 1.1 10*3/uL (0.11-0.8); Monocytes % 7.4 % (1.7-12.7); Neutrophils # 11.3 10*3/uL (1.4-7.4); Neutrophils % 78.7 % (38.7-73.9); Platelet Count 276 T/CUMM (130-400); Red Blood Count 3.09 MC/CUMM (3.8-5.5); Red Cell Distribution Width 15.5 % (9.3-17.3); White Blood Count 14.4 T/CUMM (4-12)
[2017-02-18 06:16] LABS: Calcium 7.8 MG/DL (8.5-10.1)
[2017-02-18] MEDS: PIPERACILLIN/TAZOBACTAM 3,375 MG in SODIUM CHLORIDE 0.9% 100 ML IV SCH ×2 (06:49→18:17)
--- NOTE | 2017-02-18 08:33 | Hospitalist Progress Note ---
Assessment and Plan - Time spent with patient Time spent with patient: Greater than 30 minutes (1) Diabetes mellitus type 2 in obese Status: Chronic Assessment and plan: We will be keeping the same antibiotics through the weekend, monitor progress. Continue to elevate left upper extremity Surgery follow-up Continue current insulin regimen and monitor fingerstick glucose Local wound care. Nephrology follow-up with scheduled hemodialysis. DVT prophylaxis. This note has been prepared by [employer] voice recognition software, there may be medical typist errors as a result. Current Visit: No (2) End stage renal disease Status: Chronic Current Visit: No (3) Leukocytosis Status: Acute Current Visit: No (4) Left arm swelling Status: Acute Current Visit: Yes (5) Hypertension Status: Acute Current Visit: Yes Hospitalist: Subjective Interval history: No new changes overnight, he remains afebrile. WBC is staying stable at 14. Still complains of pain in the left arm. Last hemodialysis was 02/17 Exam - Constitutional Vitals: Period Temp Pulse Resp BP Sys/Jo Pulse Ox Last 24 Hr 98.1 F-98.5 F 56-77 16-20 150-194/69-83 96-99 General appearance: mild distress - Head Head exam: Present: normocephalic, atraumatic - Eye Pupils: Present: YOLANDA - ENT ENT exam: Present: normal external ear exam - Respiratory Respiratory exam: Present: clear to auscultation bilaterally. Absent: rhonchi, wheezes - Cardiovascular Cardiovascular exam: Present: regular rate and rhythm. Absent: JVD - GI/Abdominal GI/Abdominal exam: Present: normal bowel sounds, soft. Absent: tenderness - Neurological Exam Neurological exam: Present: alert, oriented X3 - Skin Skin exam: Present: normal color, warm, dry Results - Labs CBC & BMP: 02/18/17 04:49 02/18/17 04:49 Lab Results: I have reviewed the past 24 hour labs
[2017-02-18] MEDS: INSULIN LISPRO 100 UNIT/ML SUBCUT SCH ×3 (09:18→18:02)
[2017-02-18] MEDS: INSULIN REGULAR 100 UNIT/ML SUBCUT SCH ×4 (09:18→23:22)
[2017-02-18] MEDS: ENOXAPARIN 30 MG/0.3 ML SYRINGE SUBCUT SCH ×2 (09:59→10:02)
[2017-02-18] MEDS: PANTOPRAZOLE 40 MG TABLET PO SCH (10:00)
[2017-02-18] MEDS: CARVEDILOL 25 MG TABLET PO SCH ×2 (10:00→23:24)
[2017-02-18] MEDS: predniSONE 20 MG TABLET PO SCH (10:00)
[2017-02-18] MEDS: MULTIVITAMIN (BEROCCA) TABLET PO SCH (10:00)
[2017-02-18] MEDS: CALCIUM (CARBONATE) 500 MG TABLET PO SCH ×3 (10:00→18:02)
[2017-02-18] MEDS: ASPIRIN EC 81 MG TABLET PO SCH (10:00)
[2017-02-18] MEDS: COLLAGENASE OINT 30 GM TUBE TOP SCH (10:03)
--- NOTE | 2017-02-18 10:56 | Event Note ---
02/18/2017 Patient still with some swelling of the arm at this time. I have been following this patient's feet for many years but we were not consulted to see him while he came in the hospital at this time. The wounds on the feet look in pretty bad shape and need to be cleaned up and good care began.
[2017-02-18] MEDS ORDERED: CHLORHEXIDINE 4% SOLN 118 ML BOTTLE TOP ONE (10:57)
[2017-02-18] MEDS ORDERED: SKIN HEALING OINT (AQUAPHOR) 50 GM TUBE TOP PRN (10:57)
--- NOTE | 2017-02-18 11:56 | Hospitalist Progress Note ---
Assessment and Plan - Time spent with patient Time spent with patient: Greater than 30 minutes (1) Diabetes mellitus type 2 in obese Status: Chronic Assessment and plan: We will be keeping the same antibiotics through the weekend, monitor progress. Continue to elevate left upper extremity Surgery follow-up Continue current insulin regimen and monitor fingerstick glucose Local wound care. Nephrology follow-up with scheduled hemodialysis. DVT prophylaxis. This note has been prepared by [employer] voice recognition software, there may be stitchdowns toe former errors as a result. Current Visit: No (2) End stage renal disease Status: Chronic Current Visit: No (3) Leukocytosis Status: Acute Current Visit: No (4) Left arm swelling Status: Acute Current Visit: Yes (5) Hypertension Status: Acute Current Visit: Yes Hospitalist: Subjective Interval history: Some improvement with pain and swelling left upper extremity though he still has significant swelling. No fever. No new events overnight I appreciate Dr. Amin seeing this patient and offering to help. Exam - Constitutional Vitals: Period Temp Pulse Resp BP Sys/Jo Pulse Ox Last 24 Hr 98.1 F-98.5 F 56-77 16-20 150-194/69-83 96-99 Exam: General appearance: mild distress - Head Head exam: Present: normocephalic, atraumatic - Eye Pupils: Present: YOLANDA - ENT ENT exam: Present: normal external ear exam - Respiratory Respiratory exam: Present: clear to auscultation bilaterally. Absent: rhonchi, wheezes - Cardiovascular Cardiovascular exam: Present: regular rate and rhythm. Absent: JVD - GI/Abdominal GI/Abdominal exam: Present: normal bowel sounds, soft. Absent: tenderness - Neurological Exam Neurological exam: Present: alert, oriented X3 - Skin Skin exam: Present: normal color, warm, dry. Left upper extremity erythema, warmth and differential swelling noted. Results - Labs CBC & BMP: 02/18/17 04:49 02/18/17 04:49 Lab Results: I have reviewed the past 24 hour labs
--- NOTE | 2017-02-18 13:06 | Nephrology Progress Note ---
Nephrology - PN: Subj Interval history: Pt tolerated routine CHD yesterday without complications. States he thinks the left wrist is better today. Improved pain and denies SOB. Exam (PN)-Nephrology - Vital Signs Vital signs: Period Temp Pulse Resp BP Sys/Jo Pulse Ox Last 24 Hr 98.1 F-98.5 F 56-77 16-20 150-194/69-83 96-99 - General Appearance General appearance: well-developed, chronically ill EENT: ATNC, PERRL, mucous membranes moist, hearing intact, vision intact Neck: no JVD, no thyromegaly Respiratory: no kyphosis, clear Cardiology: no murmurs, no rub, edema Gastrointestinal: normoactive bowel sounds, no tenderness Integumentary: no rash, warm and dry, ulcer (bilat feet) Neurologic: no focal deficit, no asterixis, alert and oriented x3 Musculoskeletal: deformities, erythema (left wrist) Psychiatric: mood/affect appropriate, cooperative - Lab 02/18/17 04:49 02/18/17 04:49 Most recent lab results Calcium 7.8 MG/DL (8.5-10.1) L 02/18/17 04:49 Assessment and Plan (1) Diabetic foot infection Status: Chronic Current Visit: No (2) End stage renal disease on dialysis Problem details: No indication for HD today. Status: Chronic Assessment and plan: next scheduled routine CHD on Monday. order caller to HD unit. Current Visit: No (3) Cellulitis Status: Acute Current Visit: Yes
[2017-02-18] MEDS: INSULIN GLARGINE 100 UNIT/ML SUBCUT SCH (23:24)
[2017-02-18] MEDS: SIMVASTATIN 20 MG TABLET PO SCH (23:27)
[2017-02-19] MEDS: PIPERACILLIN/TAZOBACTAM 3,375 MG in SODIUM CHLORIDE 0.9% 100 ML IV SCH ×2 (05:24→18:15)
[2017-02-19 05:26] LABS: Basophils % 0.1 % (0.0-0.8); Eosinophils # 0.1 10*3/uL (0.0-0.87); Eosinophils % 0.4 % (0.00-10.9); Hematocrit 29.1 VOL% (42.0-52.0); Immature Granulocytes % 1.1 %; Immature Granulocytes Absolute 0.18 #; Lymphocytes # 1.5 10*3/uL (1.4-4.0); Lymphocytes % 8.9 % (21.2-54.2); Mean Corpuscular HGB Conc 34.4 GM/DL (32-36); Mean Corpuscular Hemoglobin 32 PG (27-34); Mean Platelet Volume 8.9 FL (9.6-12.0); Monocytes % 6.2 % (1.7-12.7); Neutrophils # 13.8 10*3/uL (1.4-7.4); Neutrophils % 83.3 % (38.7-73.9); Platelet Count 247 T/CUMM (130-400); Red Blood Count 3.13 MC/CUMM (3.8-5.5); Red Cell Distribution Width 15.4 % (9.3-17.3); White Blood Count 16.6 T/CUMM (4-12)
[2017-02-19 06:07] LABS: Calcium 7.7 MG/DL (8.5-10.1); Osmolality,Calculated 289.1 MOS/KG (273-304); Potassium 4.3 MMOL/L (3.5-5.1)
--- NOTE | 2017-02-19 08:41 | Hospitalist Progress Note ---
Assessment and Plan - Time spent with patient Time spent with patient: Greater than 30 minutes (1) Diabetes mellitus type 2 in obese Status: Chronic Assessment and plan: Continue antibiotics through the weekend, monitor progress, if no improvement, he may need debridement of his lower extremity wound plus review of his antibiotics by infectious disease. Continue to elevate left upper extremity Surgery follow-up Keep his current insulin regimen and monitor fingerstick glucose Local wound care. Nephrology follow-up with scheduled hemodialysis. DVT prophylaxis. This note has been prepared by [employer] voice recognition software, there may be electrical supervisor errors as a result. Current Visit: No (2) End stage renal disease Status: Chronic Current Visit: No (3) Leukocytosis Status: Acute Current Visit: No (4) Left arm swelling Status: Acute Current Visit: Yes (5) Hypertension Status: Acute Current Visit: Yes Hospitalist: Subjective Interval history: 51-year-old man with diabetes, ESRD being managed for left upper extremity cellulitis, he has had evaluation for possible deep seeded abscess with a CT scan. CT scan was negative. Today, his pain is slightly improving. He is not able to move some of his fingers with less pain and difficulty. He does not have fever, however continues to have leukocytosis despite being on antibiotics for some time now. I wonder if he is leukocytoses is from his other lower extremity wounds, we will see surgery recommendation for debridement of his lower extremity wounds. His blood sugars are much better today. Exam - Constitutional Vitals: Period Temp Pulse Resp BP Sys/Jo Pulse Ox Last 24 Hr 98.0 F-98.8 F 57-77 18-18 155-171/70-81 97-99 Exam: General appearance: mild distress - Head Head exam: Present: normocephalic, atraumatic - Eye Pupils: Present: YOLANDA - ENT ENT exam: Present: normal external ear exam - Respiratory Respiratory exam: Present: clear to auscultation bilaterally. Absent: rhonchi, wheezes - Cardiovascular Cardiovascular exam: Present: regular rate and rhythm. Absent: JVD - GI/Abdominal GI/Abdominal exam: Present: normal bowel sounds, soft. Absent: tenderness - Neurological Exam Neurological exam: Present: alert, oriented X3 - Skin Skin exam: Present: normal color, warm, dry. Left upper extremity erythema, warmth and differential swelling noted. Results - Labs CBC & BMP: 02/19/17 05:21 02/19/17 05:21 Lab Results: I have reviewed the past 24 hour labs
[2017-02-19] MEDS: INSULIN REGULAR 100 UNIT/ML SUBCUT SCH ×4 (09:29→20:56)
[2017-02-19] MEDS: INSULIN LISPRO 100 UNIT/ML SUBCUT SCH ×3 (09:29→16:57)
[2017-02-19] MEDS: PANTOPRAZOLE 40 MG TABLET PO SCH (09:29)
[2017-02-19] MEDS: MULTIVITAMIN (BEROCCA) TABLET PO SCH (09:29)
[2017-02-19] MEDS: CARVEDILOL 25 MG TABLET PO SCH ×2 (09:29→20:58)
[2017-02-19] MEDS: CALCIUM (CARBONATE) 500 MG TABLET PO SCH ×3 (09:29→17:12)
[2017-02-19] MEDS: predniSONE 20 MG TABLET PO SCH (09:29)
[2017-02-19] MEDS: ENOXAPARIN 30 MG/0.3 ML SYRINGE SUBCUT SCH (09:32)
[2017-02-19] MEDS: SODIUM HYPOCHLORITE 0.25% IRRIG 473 ML BOTTLE TOP SCH (10:26)
[2017-02-19] MEDS: ASPIRIN EC 81 MG TABLET PO SCH (10:26)
[2017-02-19] MEDS: COLLAGENASE OINT 30 GM TUBE TOP SCH ×2 (10:26)
--- NOTE | 2017-02-19 13:14 | Nephrology Progress Note ---
Nephrology - PN: Subj Interval history: Pt states his pain is about the same. Dorsum of L hand more erythematous appearing. Denies SOB. Exam (PN)-Nephrology - Vital Signs Vital signs: Period Temp Pulse Resp BP Sys/Jo Pulse Ox Last 24 Hr 97.8 F-98.8 F 57-77 18-20 155-171/72-81 97-99 - General Appearance General appearance: well-nourished, chronically ill EENT: ATNC, PERRL, mucous membranes moist, hearing intact, vision intact Neck: no JVD Respiratory: no kyphosis, clear Cardiology: no murmurs, no rub Gastrointestinal: normoactive bowel sounds, obese Integumentary: no rash, ulcer Neurologic: no focal deficit, no asterixis, alert and oriented x3 Musculoskeletal: deformities, erythema Psychiatric: mood/affect appropriate, cooperative - Lab 02/19/17 05:21 02/19/17 05:21 Most recent lab results Calcium 7.7 MG/DL (8.5-10.1) L 02/19/17 05:21 Assessment and Plan (1) Cellulitis Problem details: No clear line of demarcation of erythema. Status: Acute Assessment and plan: Per ID. Current Visit: Yes (2) Diabetic foot infection Status: Chronic Current Visit: No (3) End stage renal disease on dialysis Problem details: No indication for HD today. Status: Chronic Assessment and plan: Next scheduled routine CHD on Monday. 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 Current Visit: No
[2017-02-19] MEDS: INSULIN GLARGINE 100 UNIT/ML SUBCUT SCH (20:57)
[2017-02-19] MEDS: SIMVASTATIN 20 MG TABLET PO SCH (20:58)
[2017-02-20 05:15] LABS: Basophils % 0.1 % (0.0-0.8); Eosinophils % 0.3 % (0.00-10.9); Hematocrit 27.8 VOL% (42.0-52.0); Hemoglobin 9.5 GM/DL (14.0-18.0); Immature Granulocytes % 0.9 %; Immature Granulocytes Absolute 0.13 #; Lymphocytes # 1.3 10*3/uL (1.4-4.0); Lymphocytes % 8.6 % (21.2-54.2); Mean Corpuscular HGB Conc 34.2 GM/DL (32-36); Mean Corpuscular Hemoglobin 32 PG (27-34); Mean Platelet Volume 9.6 FL (9.6-12.0); Monocytes # 0.9 10*3/uL (0.11-0.8); Monocytes % 6.2 % (1.7-12.7); Neutrophils # 12.2 10*3/uL (1.4-7.4); Neutrophils % 83.9 % (38.7-73.9); Platelet Count 272 T/CUMM (130-400); Red Blood Count 2.99 MC/CUMM (3.8-5.5); Red Cell Distribution Width 15.4 % (9.3-17.3); White Blood Count 14.5 T/CUMM (4-12)
[2017-02-20 05:45] LABS: Calcium 7.1 MG/DL (8.5-10.1); Osmolality,Calculated 297.4 MOS/KG (273-304); Potassium 4.9 MMOL/L (3.5-5.1)
[2017-02-20] MEDS: PIPERACILLIN/TAZOBACTAM 3,375 MG in SODIUM CHLORIDE 0.9% 100 ML IV SCH ×2 (05:52→17:20)
[2017-02-20] MEDS: CALCIUM (CARBONATE) 500 MG TABLET PO SCH ×3 (08:59→17:20)
[2017-02-20] MEDS: MULTIVITAMIN (BEROCCA) TABLET PO SCH (08:59)
[2017-02-20] MEDS: CARVEDILOL 25 MG TABLET PO SCH ×2 (09:00→20:27)
[2017-02-20] MEDS: predniSONE 20 MG TABLET PO SCH (09:00)
[2017-02-20] MEDS: ASPIRIN EC 81 MG TABLET PO SCH (09:00)
[2017-02-20] MEDS: ENOXAPARIN 30 MG/0.3 ML SYRINGE SUBCUT SCH (09:01)
[2017-02-20] MEDS: INSULIN LISPRO 100 UNIT/ML SUBCUT SCH ×3 (09:01→17:21)
[2017-02-20] MEDS: INSULIN REGULAR 100 UNIT/ML SUBCUT SCH ×4 (09:02→20:28)
[2017-02-20] MEDS: PANTOPRAZOLE 40 MG TABLET PO SCH (09:03)
[2017-02-20] MEDS: SODIUM HYPOCHLORITE 0.25% IRRIG 473 ML BOTTLE TOP SCH (09:03)
[2017-02-20] MEDS: COLLAGENASE OINT 30 GM TUBE TOP SCH ×2 (09:03)
--- NOTE | 2017-02-20 09:13 | Hospitalist Progress Note ---
Assessment and Plan (1) Cellulitis Problem details: No clear line of demarcation of erythema. Status: Acute Assessment and plan: The patient's right hand remains grossly edematous with profound erythema. Surgery has already been consult for evaluation. We will continue empiric antibiotics. Encourage elevation of the extremity at all times. Current Visit: Yes (2) Acute renal failure Status: Acute Assessment and plan: Nephrology to manage continue hemodialysis per nephrology direction. Current Visit: No (3) Diabetes mellitus Status: Acute Assessment and plan: Accu-Cheks have been irregular, insulin was adjusted on yesterday. We will monitor and readjust insulin if no improvement in a.m.. Current Visit: No Hospitalist: Subjective Interval history: Patient seen and examined no significant overnight events reported. Chart reviewed. Right hand remains edematous; encouraged to elevate on pillow. Exam - Constitutional Vitals: Period Temp Pulse Resp BP Sys/Jo Pulse Ox Last 24 Hr 97.8 F-99.1 F 57-73 16-20 163-197/72-85 96-98 General appearance: normal weight, no acute distress - Head Head exam: Present: normal inspection, normocephalic, atraumatic - Eye Eye exam: Present: EOMI. Absent: conjunctival injection Pupils: Present: YOLANDA, normal accommodation - ENT ENT exam: Present: normal exam, normal external ear exam, normal oropharynx - Neck Neck exam: Present: normal inspection. Absent: lymphadenopathy, meningismus, tenderness, thyromegaly - Respiratory Respiratory exam: Present: clear to auscultation bilaterally. Absent: rhonchi, stridor, wheezes - Cardiovascular Cardiovascular exam: Present: regular rate and rhythm. Absent: carotid bruit, diastolic murmur, gallop, JVD, rubs, systolic murmur - GI/Abdominal GI/Abdominal exam: Present: normal bowel sounds, soft - Extremities Exam Extremities exam: Present: edema (Gross erythema and edema to right hand) - Back Exam Back exam: Present: normal inspection - Neurological Exam Neurological exam: Present: alert, oriented X3 - Psychiatric Psychiatric exam: Present: normal affect, normal mood - Skin Skin exam: Present: normal color, warm, dry Results - Labs CBC & BMP: 02/20/17 04:23 02/20/17 04:23 Lab Results: I have reviewed the past 24 hour labs
--- NOTE | 2017-02-20 11:06 | Infectious Disease Progress ---
Assessment and Plan (1) Cellulitis Problem details: No clear line of demarcation of erythema. Status: Acute Assessment and plan: Severe cellulitis of the left hand and forearm, extremely slow to resolve. No associated abscess noted on the CT however the CT was noted to be not of the best quality. His white blood cell count has improved since admission but overall is still elevated without any [employer] architect the past several days. He has been afebrile however. REcommendations: Continue broad-spectrum antibiotics, vancomycin and Zosyn. We will just have to see how this infection evolves, if he ends up forming an abscess. Current Visit: Yes (2) Hypertension Status: Acute Current Visit: Yes (3) Diabetes mellitus Status: Acute Current Visit: No (4) Leukocytosis Status: Acute Assessment and plan: Most likely cause is the LUE cellulitis. Current Visit: No Infectious Disease - PN: Subj Interval history: Patient doing fairly okay but still having significant pain to left wrist and hand. The forearm and hand are still quite swollen. He has not had any fever. No other complaints. Infectious Disease Exam (PN) - Constitutional Vitals: Temp Pulse Resp BP Pulse Ox 98.6 F 62 20 194/77 97 02/20/17 08:00 02/20/17 08:00 02/20/17 08:00 02/20/17 08:00 02/20/17 08:00 General appearance: normal weight, no acute distress Exam: General appearance: no acute distress, getting dialysis - Eye Eye exam: Present: EOMI. no icterus Pupils: Present: YOLANDA - ENT ENT exam: no oral exudates - Respiratory Respiratory exam: vesicular BS, no crepitations or wheezes - Cardiovascular Cardiovascular exam: regular rate and rhythm, no murmurs - GI/Abdominal GI/Abdominal exam: normal bowel sounds, soft, non-tender, no organomegaly or mass - Extremities Exam Extremities exam: The left hand and forearm edema does not appear any better since last Monday. The erythema to the dorsum of the hand is more prominent. There is still significant tenderness on palpation of the whole area still feels very firm. - Skin Skin exam: no rash Results - Labs CBC & BMP: 02/20/17 04:23 02/20/17 04:23 Lab Results: I have reviewed the past 24 hour labs
--- NOTE | 2017-02-20 12:25 | Dialysis Note ---
Dialysis Note - Dialysis Note Mr. Adams is seen during his hemodialysis. He is tolerating it well. His left wrist and hand are still quite tense and swollen. He is tender over the entire area particularly the dorsum of the left hand. There has been no obvious abscess formation and blood cultures have been negative. We are continuing to treat as if this is a cellulitis but we do not have an organism. There has been nothing to aspirate.
--- NOTE | 2017-02-20 13:57 | General Surgery Progress Note ---
Assessment and Plan (1) Left arm swelling Status: Acute Assessment and plan: I suspect that his swelling is from venous hypertension in his left arm. We will admit him and aggressively elevate his arm. We will consult interventional radiology to see about doing a fistulogram to see if there is a venous outflow stenosis. This was not evident on ultrasound but could be a central venous stenosis causing venous hypertension in his extremity. 02/12: He continues to have arm pain though he says this is a little better than last night. I have had his arm aggressively elevated on an IV pole with a stockinette. He does not have much in the way of edema. It is unclear the etiology of his pain whether this is venous hypertension from a central venous stenosis and high pressure related to the fistula or whether or not this could be pain from a steal type syndrome. It would be unusual to get a steal syndrome this far out from creation of the AV fistula. We will have him evaluated by interventional radiology today. 02/13: The edema of the arm itself is completely resolved. The issue appears to be at the wrist and this may be a primary wrist problem. I do not think that there is an underlying vascular issue as his fistulogram and venogram did not show any evidence of obstruction and the arteries appeared normal down to the wrist. We will check x-rays of his wrist. Whether there is a secondary cellulitis is questionable as well. This patient has had a markedly elevated white blood cell count. We will recheck this. 02/14: He continues to complain of pain at his wrist. It is not red it is not edematous. He is tender over his carpal tunnel. He does not have resolution of his pain with compression of the fistula so I do not think that this is a steal syndrome or ischemia. The etiology of this is unclear. He does have a markedly elevated white blood cell count but I cannot really visualize any infection. The edema that he had in this location is resolved. 02/15: I think it is clear that this is an infectious problem and not a vascular problem. He is on vancomycin. I think that a CT scan may be helpful to look for deep space abscess or infection. 02/16: He continues to have pain. The pain that he describes is more impressive than the appearance of his arm. His mild swelling and faint hint of erythema is located mostly on the dorsal aspect of his wrist and proximal hand. There is minimal tenderness of his forearm musculature. There is really no signs of cyanosis that I can appreciate. I think that his problem is primarily infectious. His white blood cell count is down some and if he remains afebrile. We are continuing vancomycin. CT scan did not show any deep space infection or abscess. I think that it would be worthwhile normally I would check finger pressures but we do not have the capability to do this in the hospital. I can check to see if it is possible to send him from the hospital to my office to have this done in our vascular lab. 02/17: He still complains of pain in his wrist. We have looked for deep space infection. I have repeated a detailed vascular exam where he has a normal Castillo 's test and no augmentation of his flow that I can appreciate by Doppler with compression of his fistula. I do not think this represents a steal syndrome. I do not think that this is an ischemic problem. I think that this is infectious. I do not have evidence of an abscess or necrotizing infection 02/20: This note is a late entry as I saw the patient early this morning. The cellulitis appears to be more focally located over the extensor surface of the hand. There is no obvious fluctuance or abscess or obvious signs of tenosynovitis. Dr. Gil is out of town and I have spoken to Dr. Goss about seeing him today to get his opinion again from orthopedics. Current Visit: Yes (2) Chronic renal insufficiency, stage IV (severe) Status: Chronic Assessment and plan: He will probably need to be seen by nephrology to manage dialysis Current Visit: No Subjective Patient reports: Present: feels better, still having pain, pain is less. Absent : nausea, vomiting, fever Exam - Constitutional Vitals: Period Temp Pulse Resp BP Sys/Jo Pulse Ox Last 24 Hr 98.4 F-99.1 F 62-73 16-22 176-197/77-85 95-98 General appearance: no acute distress - Eye Eye exam: Absent: scleral icterus - ENT Mouth exam: Present: normal voice - Respiratory Respiratory exam: Absent: accessory muscle use - Extremities Exam Extremities exam: Present: edema (This is much less), other (The hand has more focal erythema over the extensor surface) Results - Labs CBC & BMP: 02/20/17 04:23 06/05/17 04:23 Lab Results: I have reviewed the past 24 hour labs
--- NOTE | 2017-02-20 19:47 | Orthopedic Progress Note ---
Orthopedics - Subjective Interval history: Patient was seen and examined. The chart was reviewed. Mr. Adams was seen and evaluated by my partner who felt he had a left upper extremity cellulitis. The patient states that his hand has gotten significantly better. He still has a residual area erythema over the dorsal surface of his hand. He has obtained a CT scan, x-rays and a bone scan. There is no evidence of a deep infection on any of the studies. He does have calcified vessels. Exam shows about 3 cm area of cellulitis and edema over the dorsal ulnar surface of his hand. There is no fluctuance or induration. Sensations grossly intact to light touch. His hand is moderately stiff and demonstrates extrinsic tightness. His left wrist radiographs, bone scan and CT scan were reviewed. There is no obvious abscess or osteomyelitis on these studies. The patient has a leukocytosis which is slowly improving. Impression: Left upper extremity cellulitis Plan: I agree with continued medical management. At this point I see no indication for surgical treatment. I have ordered occupational therapy to work on improving his hand motion. Exam - Constitutional Vitals: Period Temp Pulse Resp BP Sys/Jo Pulse Ox Last 24 Hr 97.3 F-98.7 F 57-73 2-22 159-198/77-84 95-98 Results - Labs CBC & BMP: 02/20/17 04:23 02/20/17 04:23
[2017-02-20] MEDS: SIMVASTATIN 20 MG TABLET PO SCH (20:27)
[2017-02-20] MEDS: INSULIN GLARGINE 100 UNIT/ML SUBCUT SCH (20:27)
[2017-02-20] MEDS ORDERED: VANCOMYCIN INJ 750 MG in SODIUM CHLORIDE 0.9% 250 ML IV ONE (21:00)
[2017-02-21] MEDS: PIPERACILLIN/TAZOBACTAM 3,375 MG in SODIUM CHLORIDE 0.9% 100 ML IV SCH ×2 (06:39→18:01)
--- NOTE | 2017-02-21 07:40 | Hospitalist Progress Note ---
Assessment and Plan (1) End stage renal disease Status: Chronic Assessment and plan: On chronic renal replacement therapy Current Visit: No (2) Cellulitis Problem details: No clear line of demarcation of erythema. Status: Acute Assessment and plan: Continued gradual improvement with regression to localization largely in the left hand. Negative screens for osteomyelitis. Current Visit: Yes (3) Diabetes mellitus type 2 in obese Status: Chronic Assessment and plan: Poor control associated with diabetic foot changes requiring debridement and amputation in the past. Current Visit: No Hospitalist: Subjective Interval history: 51-year-old male admitted after developing diffuse cellulitis involving the left upper extremity. He is a poorly controlled diabetic with lower extremity amputations and debridements for vascular and diabetic related lesions. The patient is on chronic hemodialysis utilizing left arm vascular access with the onset of progressive swelling and erythema beginning in the left hand and progressing up the left arm. By report the patient's swelling and erythema has progressively decreased during the course of hospitalization. Bone scan and CT scan have shown no evidence of osteomyelitis in the involved extremity. His capillary blood glucose levels appear to be improving with control of the infection. His laboratory work has been stable consistent with history of end- stage renal disease. He was afebrile overnight and is being followed by orthopedic and general surgery. He has been evaluated by infectious disease and they have recommended continuing vancomycin and Zosyn coverage. Exam - Constitutional Vitals: Period Temp Pulse Resp BP Sys/Jo Pulse Ox Last 24 Hr 97.3 F-99.1 F 57-80 2-20 157-198/73-84 94-98 General appearance: over weight - Respiratory Respiratory exam: Present: clear to auscultation bilaterally. Absent: rales, rhonchi, wheezes - Cardiovascular Cardiovascular exam: Present: regular rate and rhythm - Extremities Exam Extremities exam: Present: other (Erythema and swelling dorsum of the left hand , largely resolving proximal extension.) - Neurological Exam Neurological exam: Present: alert, oriented X3 Results - Labs CBC & BMP: 02/21/17 08:09 02/21/17 08:09
[2017-02-21 08:23] LABS: Basophils % 0.2 % (0.0-0.8); Eosinophils # 0.1 10*3/uL (0.0-0.87); Eosinophils % 0.8 % (0.00-10.9); Hematocrit 30.7 VOL% (42.0-52.0); Hemoglobin 10.3 GM/DL (14.0-18.0); Immature Granulocytes % 0.6 %; Lymphocytes # 1.8 10*3/uL (1.4-4.0); Lymphocytes % 11.3 % (21.2-54.2); Mean Corpuscular HGB Conc 33.6 GM/DL (32-36); Mean Corpuscular Hemoglobin 32 PG (27-34); Mean Corpuscular Volume 94.8 FL (87-102); Mean Platelet Volume 9.1 FL (9.6-12.0); Monocytes % 6.2 % (1.7-12.7); Neutrophils # 13.1 10*3/uL (1.4-7.4); Neutrophils % 80.9 % (38.7-73.9); Platelet Count 297 T/CUMM (130-400); Red Blood Count 3.24 MC/CUMM (3.8-5.5); Red Cell Distribution Width 15.6 % (9.3-17.3); White Blood Count 16.2 T/CUMM (4-12)
[2017-02-21 08:56] LABS: Albumin 2.5 G/DL (3.4-5.0); Bilirubin,Total 0.5 MG/DL (0.2-1.0); Magnesium 2.4 MG/DL (1.8-2.4); Osmolality,Calculated 288.5 MOS/KG (273-304); Phosphorous 3.9 MG/DL (2.5-4.9); Potassium 4.3 MMOL/L (3.5-5.1); Total Protein 6.9 G/DL (6.4-8.3)
--- NOTE | 2017-02-21 09:14 | Infectious Disease Progress ---
Assessment and Plan (1) Cellulitis Problem details: No clear line of demarcation of erythema. Status: Acute Assessment and plan: Severe cellulitis of the left hand and forearm, slow to resolve, but there is some improvement in the swelling and erythema today. White blood cell count however is incrementally up again. REcommendations: Continue broad-spectrum antibiotics, vancomycin and Zosyn. As long as no fever and patient subjectively feels somewhat better, will not make any changes. Current Visit: Yes (2) Hypertension Status: Acute Current Visit: Yes (3) Diabetes mellitus Status: Acute Current Visit: No (4) Leukocytosis Status: Acute Assessment and plan: Most likely cause is the LUE cellulitis. Current Visit: No Infectious Disease - PN: Subj Interval history: Patient doing okay today, admits to slight improvement in pain and swelling to left forearm and hand. No fever. He is eating okay no vomiting or diarrhea. No cough or shortness of breath. Seen by also and felt not to have reason for surgery. Infectious Disease Exam (PN) - Constitutional Vitals: Temp Pulse Resp BP Pulse Ox 98.0 F 60 20 157/73 94 L 02/21/17 04:00 02/21/17 04:00 02/21/17 04:00 02/21/17 04:00 02/21/17 04:00 General appearance: over weight Exam: General appearance: no acute distress, getting dialysis - Eye Eye exam: Present: EOMI. no icterus Pupils: Present: YOLANDA - ENT ENT exam: no oral exudates - Respiratory Respiratory exam: vesicular BS, no crepitations or wheezes - Cardiovascular Cardiovascular exam: regular rate and rhythm, no murmurs - GI/Abdominal GI/Abdominal exam: normal bowel sounds, soft, non-tender, no organomegaly or mass - Extremities Exam Extremities exam: The left hand and forearm edema is slightly improved with mild wrinkling of skin to dorsum of wrist. Erythema confined to the dorsum of hand is possibly slightly better today than yesterday. Slightly less tenderness on palpation. - Skin Skin exam: no rash Results - Labs CBC & BMP: 02/21/17 08:09 02/21/17 08:09 Lab Results: I have reviewed the past 24 hour labs
[2017-02-21] MEDS: INSULIN LISPRO 100 UNIT/ML SUBCUT SCH ×3 (09:22→16:55)
[2017-02-21] MEDS: CALCIUM (CARBONATE) 500 MG TABLET PO SCH ×3 (09:24→18:00)
[2017-02-21] MEDS: MULTIVITAMIN (BEROCCA) TABLET PO SCH (09:24)
[2017-02-21] MEDS: PANTOPRAZOLE 40 MG TABLET PO SCH (09:24)
[2017-02-21] MEDS: CARVEDILOL 25 MG TABLET PO SCH ×2 (09:24→21:10)
[2017-02-21] MEDS: ENOXAPARIN 30 MG/0.3 ML SYRINGE SUBCUT SCH (09:24)
[2017-02-21] MEDS: predniSONE 20 MG TABLET PO SCH (09:25)
[2017-02-21] MEDS: ASPIRIN EC 81 MG TABLET PO SCH (09:25)
[2017-02-21] MEDS: COLLAGENASE OINT 30 GM TUBE TOP SCH ×2 (09:27)
[2017-02-21] MEDS: INSULIN REGULAR 100 UNIT/ML SUBCUT SCH ×4 (09:27→21:11)
[2017-02-21] MEDS: SODIUM HYPOCHLORITE 0.25% IRRIG 473 ML BOTTLE TOP SCH (09:27)
--- NOTE | 2017-02-21 11:45 | Nephrology Progress Note ---
Nephrology - PN: Subj Interval history: Mr. Adams is seen in follow-up of his end-stage renal disease. His left hand is swollen over the dorsum with continued tenderness and there is beginning to be some blistering over the dorsum of the left hand. He still has swelling over the wrist and distal forearm. He is afebrile and we are going to continue with the same antibiotic therapy. Will do dialysis again tomorrow. Exam (PN)-Nephrology - Vital Signs Vital signs: Period Temp Pulse Resp BP Sys/Jo Pulse Ox Last 24 Hr 97.3 F-99.1 F 57-80 2-20 157-198/73-84 94-98 - Lab 02/21/17 08:09 02/21/17 08:09 Most recent lab results Calcium 8.0 MG/DL (8.5-10.1) L 02/21/17 08:09 Phosphorus 3.9 MG/DL (2.5-4.9) 02/21/17 08:09 Magnesium 2.4 MG/DL (1.8-2.4) 02/21/17 08:09 Assessment and Plan (1) End stage renal disease Status: Chronic Current Visit: No (2) Left arm swelling Status: Acute Current Visit: Yes (3) Diabetes mellitus Status: Acute Current Visit: No
--- NOTE | 2017-02-21 16:22 | Orthopedic Progress Note ---
Orthopedics - Subjective Interval history: Mr. Adams states that his hand is a little bit better than yesterday. Exam of his left upper extremity is unchanged. He has mild dorsal ulnar hand edema and erythema. No fluctuance. He is a leukocytosis of 16,000. Impression: Left hand cellulitis Plan: Agree with continued medical management. Occupational therapy is to start today. Exam - Constitutional Vitals: Period Temp Pulse Resp BP Sys/Jo Pulse Ox Last 24 Hr 98.0 F-99.1 F 60-80 19-20 155-192/63-83 94-98 Results - Labs CBC & BMP: 02/21/17 08:09 02/21/17 08:09
[2017-02-21] MEDS: INSULIN GLARGINE 100 UNIT/ML SUBCUT SCH (21:10)
[2017-02-21] MEDS: SIMVASTATIN 20 MG TABLET PO SCH (21:10)
[2017-02-22] MEDS: PIPERACILLIN/TAZOBACTAM 3,375 MG in SODIUM CHLORIDE 0.9% 100 ML IV SCH ×2 (06:15→17:31)
--- NOTE | 2017-02-22 07:23 | Hospitalist Progress Note ---
Assessment and Plan (1) End stage renal disease Status: Chronic Assessment and plan: On chronic renal replacement therapy Current Visit: No (2) Cellulitis Problem details: No clear line of demarcation of erythema. Status: Acute Assessment and plan: Continued gradual improvement with regression to localization largely in the left hand. Negative screens for osteomyelitis. Current Visit: Yes (3) Diabetes mellitus type 2 in obese Status: Chronic Assessment and plan: Poor control associated with diabetic foot changes requiring debridement and amputation in the past. Current Visit: No Hospitalist: Subjective Interval history: 51-year-old male diabetic with end-stage renal disease on dialysis utilizing a left upper extremity access device developed the onset of local lesion in the back of the left hand which rapidly evolved to involve the entire hand up into the forearm area. Imaging by bone scan and CT scan showed only soft tissue changes with no evidence of osteomyelitis. Cultures have been negative and he is on vancomycin and Zosyn. He is shown gradual improvement. He has very labile capillary blood glucoses but overall has improved with improvement in the infection. He continues to have stable vital signs and is afebrile. Exam - Constitutional Vitals: Period Temp Pulse Resp BP Sys/Jo Pulse Ox Last 24 Hr 98.1 F-98.9 F 63-78 18-20 155-195/63-85 95-98 General appearance: over weight - Respiratory Respiratory exam: Present: clear to auscultation bilaterally. Absent: rales, rhonchi, wheezes - Cardiovascular Cardiovascular exam: Present: regular rate and rhythm - GI/Abdominal GI/Abdominal exam: Present: normal bowel sounds. Absent: tenderness - Extremities Exam Extremities exam: Present: other (Erythema largely confined to the left hand decrease swelling over the last 24 hours) - Neurological Exam Neurological exam: Present: alert, oriented X3 Results - Labs CBC & BMP: 02/21/17 08:09 02/21/17 08:09
[2017-02-22] MEDS: INSULIN REGULAR 100 UNIT/ML SUBCUT SCH ×4 (08:05→21:31)
[2017-02-22] MEDS: MULTIVITAMIN (BEROCCA) TABLET PO SCH (08:06)
[2017-02-22] MEDS: CARVEDILOL 25 MG TABLET PO SCH ×2 (08:06→21:29)
[2017-02-22] MEDS: CALCIUM (CARBONATE) 500 MG TABLET PO SCH ×3 (08:06→17:31)
[2017-02-22] MEDS: INSULIN LISPRO 100 UNIT/ML SUBCUT SCH ×3 (08:06→16:18)
[2017-02-22] MEDS: COLLAGENASE OINT 30 GM TUBE TOP SCH ×2 (08:07→08:08)
[2017-02-22] MEDS: ENOXAPARIN 30 MG/0.3 ML SYRINGE SUBCUT SCH (08:07)
[2017-02-22] MEDS: PANTOPRAZOLE 40 MG TABLET PO SCH (08:07)
[2017-02-22] MEDS: SODIUM HYPOCHLORITE 0.25% IRRIG 473 ML BOTTLE TOP SCH (08:07)
[2017-02-22] MEDS: ASPIRIN EC 81 MG TABLET PO SCH (08:07)
[2017-02-22] MEDS: predniSONE 20 MG TABLET PO SCH (08:07)
--- NOTE | 2017-02-22 09:10 | General Surgery Progress Note ---
Assessment and Plan (1) Left arm swelling Status: Acute Assessment and plan: I suspect that his swelling is from venous hypertension in his left arm. We will admit him and aggressively elevate his arm. We will consult interventional radiology to see about doing a fistulogram to see if there is a venous outflow stenosis. This was not evident on ultrasound but could be a central venous stenosis causing venous hypertension in his extremity. 02/12: He continues to have arm pain though he says this is a little better than last night. I have had his arm aggressively elevated on an IV pole with a stockinette. He does not have much in the way of edema. It is unclear the etiology of his pain whether this is venous hypertension from a central venous stenosis and high pressure related to the fistula or whether or not this could be pain from a steal type syndrome. It would be unusual to get a steal syndrome this far out from creation of the AV fistula. We will have him evaluated by interventional radiology today. 02/13: The edema of the arm itself is completely resolved. The issue appears to be at the wrist and this may be a primary wrist problem. I do not think that there is an underlying vascular issue as his fistulogram and venogram did not show any evidence of obstruction and the arteries appeared normal down to the wrist. We will check x-rays of his wrist. Whether there is a secondary cellulitis is questionable as well. This patient has had a markedly elevated white blood cell count. We will recheck this. 02/14: He continues to complain of pain at his wrist. It is not red it is not edematous. He is tender over his carpal tunnel. He does not have resolution of his pain with compression of the fistula so I do not think that this is a steal syndrome or ischemia. The etiology of this is unclear. He does have a markedly elevated white blood cell count but I cannot really visualize any infection. The edema that he had in this location is resolved. 02/15: I think it is clear that this is an infectious problem and not a vascular problem. He is on vancomycin. I think that a CT scan may be helpful to look for deep space abscess or infection. 02/16: He continues to have pain. The pain that he describes is more impressive than the appearance of his arm. His mild swelling and faint hint of erythema is located mostly on the dorsal aspect of his wrist and proximal hand. There is minimal tenderness of his forearm musculature. There is really no signs of cyanosis that I can appreciate. I think that his problem is primarily infectious. His white blood cell count is down some and if he remains afebrile. We are continuing vancomycin. CT scan did not show any deep space infection or abscess. I think that it would be worthwhile normally I would check finger pressures but we do not have the capability to do this in the hospital. I can check to see if it is possible to send him from the hospital to my office to have this done in our vascular lab. 02/17: He still complains of pain in his wrist. We have looked for deep space infection. I have repeated a detailed vascular exam where he has a normal Castillo 's test and no augmentation of his flow that I can appreciate by Doppler with compression of his fistula. I do not think this represents a steal syndrome. I do not think that this is an ischemic problem. I think that this is infectious. I do not have evidence of an abscess or necrotizing infection 02/20: This note is a late entry as I saw the patient early this morning. The cellulitis appears to be more focally located over the extensor surface of the hand. There is no obvious fluctuance or abscess or obvious signs of tenosynovitis. Dr. Gil is out of town and I have spoken to Dr. Goss about seeing him today to get his opinion again from orthopedics. 02/22: All swelling and tenderness of the arm is completely gone away. He does still have some localized cellulitis on the dorsum of his left hand. I am leaving this up to hand surgery regarding treatment of this. I did discuss this case with Dr. Goss this morning. I agree with continued treatment with antibiotics. Current Visit: Yes (2) Chronic renal insufficiency, stage IV (severe) Status: Chronic Assessment and plan: He will probably need to be seen by nephrology to manage dialysis Current Visit: No Subjective Patient reports: Present: feels better, pain is less. Absent: fever Exam - Constitutional Vitals: Period Temp Pulse Resp BP Sys/Jo Pulse Ox Last 24 Hr 98.1 F-98.9 F 62-78 18-20 155-195/63-85 95-98 General appearance: no acute distress - Extremities Exam Extremities exam: Present: other (There is some erythema and edema over the dorsum of the hand but this is minimally tender). Absent: edema Results - Labs CBC & BMP: 02/21/17 08:09 02/21/17 08:09 Lab Results: I have reviewed the past 24 hour labs
--- NOTE | 2017-02-22 10:56 | Infectious Disease Progress ---
Assessment and Plan (1) Cellulitis Problem details: No clear line of demarcation of erythema. Status: Acute Assessment and plan: Severe cellulitis of the left hand and forearm, slow to resolve, but there has been improvement over the past few days. REcommendations: Continue broad-spectrum antibiotics, vancomycin and Zosyn. As long as no fever and patient subjectively feels somewhat better, will not make any changes. Current Visit: Yes (2) Hypertension Status: Acute Current Visit: Yes (3) Diabetes mellitus Status: Acute Current Visit: No (4) Leukocytosis Status: Acute Assessment and plan: Most likely cause is the LUE cellulitis. Current Visit: No Infectious Disease - PN: Subj Interval history: Patient doing okay, no fever. Admits to slowly decrease in pain and swelling to left forearm and hand. Infectious Disease Exam (PN) - Constitutional Vitals: Temp Pulse Resp BP Pulse Ox 98.3 F 62 20 174/72 96 02/22/17 07:44 02/22/17 07:44 02/22/17 07:44 02/22/17 07:44 02/22/17 07:44 General appearance: no acute distress Exam: General appearance: no acute distress, getting dialysis - Eye Eye exam: Present: EOMI. no icterus Pupils: Present: YOLANDA - ENT ENT exam: no oral exudates - Respiratory Respiratory exam: vesicular BS, no crepitations or wheezes - Cardiovascular Cardiovascular exam: regular rate and rhythm, no murmurs - GI/Abdominal GI/Abdominal exam: normal bowel sounds, soft, non-tender, no organomegaly or mass - Extremities Exam Extremities exam: The left hand and forearm edema continues to slowly improve. Erythema confined to the dorsum of hand is slightly better today than yesterday. The area is no longer hyperemic. Moderate tenderness on palpation. - Skin Skin exam: no rash Results - Labs CBC & BMP: 02/21/17 08:09 02/21/17 08:09 Lab Results: I have reviewed the past 24 hour labs
--- NOTE | 2017-02-22 12:57 | Dialysis Note ---
Dialysis Note - Dialysis Note Mr. Adams is seen during his hemodialysis. He is tolerating dialysis well and continues to receive his antibiotics. His left hand is still swollen but seems to be less painful than before. He is not toxic.
[2017-02-22] MEDS ORDERED: VANCOMYCIN INJ 750 MG in SODIUM CHLORIDE 0.9% 250 ML IV ONE (21:00)
[2017-02-22] MEDS: SIMVASTATIN 20 MG TABLET PO SCH (21:29)
[2017-02-22] MEDS: INSULIN GLARGINE 100 UNIT/ML SUBCUT SCH (21:30)
[2017-02-23] MEDS: PIPERACILLIN/TAZOBACTAM 3,375 MG in SODIUM CHLORIDE 0.9% 100 ML IV SCH ×2 (06:02→18:06)
--- NOTE | 2017-02-23 06:58 | Hospitalist Progress Note ---
Assessment and Plan (1) End stage renal disease Status: Chronic Assessment and plan: On chronic renal replacement therapy Current Visit: No (2) Cellulitis Problem details: No clear line of demarcation of erythema. Status: Acute Assessment and plan: Continued gradual improvement with regression to localization largely in the left hand. Negative screens for osteomyelitis. Current Visit: Yes (3) Diabetes mellitus type 2 in obese Status: Chronic Assessment and plan: Poor control associated with diabetic foot changes requiring debridement and amputation in the past. Apparently on long-term oral corticosteroids with a diagnosis of rheumatoid arthritis. Current Visit: No Hospitalist: Subjective Interval history: 51-year-old male diabetic with end-stage renal disease with functioning left upper extremity access device developed the onset of a local lesion on the back of the left hand which rapidly evolved to include the entire hand up into the forearm area. Images show no evidence of osteomyelitis the patient has been successfully dialyzed through his access device. Cultures are negative he is currently on vancomycin and Zosyn with continued gradual improvement. His blood sugars have been exceedingly labile and though initially improved with control of the infection there was a spike yesterday to 400. He continues afebrile with stable vital signs otherwise. Exam - Constitutional Vitals: Period Temp Pulse Resp BP Sys/Jo Pulse Ox Last 24 Hr 97.4 F-98.9 F 62-79 18-20 159-188/72-76 96-96 General appearance: over weight - Respiratory Respiratory exam: Present: clear to auscultation bilaterally. Absent: rales, rhonchi, wheezes - Cardiovascular Cardiovascular exam: Present: regular rate and rhythm - GI/Abdominal GI/Abdominal exam: Present: normal bowel sounds. Absent: tenderness - Extremities Exam Extremities exam: Present: other (The signs of infection continue to be gradually received localizing to the dorsum of the left hand.). Absent: edema - Neurological Exam Neurological exam: Present: alert, oriented X3 Results - Labs CBC & BMP: 02/21/17 08:09 02/21/17 08:09
--- NOTE | 2017-02-23 08:40 | Nephrology Progress Note ---
Nephrology - PN: Subj Interval history: Mr. Adams is seen in follow-up of his end-stage renal disease and cellulitis. He is well dialyzed and fairly comfortable but still has pain in his left hand he cannot extend his fingers he cannot make a fist due to swelling and discomfort. There does not appear to be any obvious abscess formation on exam of the hand or wrist but we are going to ultrasound the hand to see if there might be a fluid collection that we can aspirate and hopefully get some material for culture. We discussed the x-ray options with Dr. Bhatti. Will proceed with the ultrasound today. Exam (PN)-Nephrology - Vital Signs Vital signs: Period Temp Pulse Resp BP Sys/Jo Pulse Ox Last 24 Hr 97.4 F-98.9 F 66-79 18-20 159-188/72-76 95-96 - Lab 02/21/17 08:09 02/21/17 08:09 Most recent lab results Calcium 8.0 MG/DL (8.5-10.1) L 02/21/17 08:09 Phosphorus 3.9 MG/DL (2.5-4.9) 02/21/17 08:09 Magnesium 2.4 MG/DL (1.8-2.4) 02/21/17 08:09 Assessment and Plan (1) End stage renal disease Status: Chronic Current Visit: No (2) Left arm swelling Status: Acute Current Visit: Yes (3) Diabetes mellitus Status: Acute Current Visit: No
[2017-02-23] MEDS: MULTIVITAMIN (BEROCCA) TABLET PO SCH (10:12)
[2017-02-23] MEDS: CALCIUM (CARBONATE) 500 MG TABLET PO SCH ×3 (10:12→16:43)
[2017-02-23] MEDS: predniSONE 20 MG TABLET PO SCH (10:13)
[2017-02-23] MEDS: PANTOPRAZOLE 40 MG TABLET PO SCH (10:13)
[2017-02-23] MEDS: ENOXAPARIN 30 MG/0.3 ML SYRINGE SUBCUT SCH ×2 (10:13→10:16)
[2017-02-23] MEDS: CARVEDILOL 25 MG TABLET PO SCH ×2 (10:13→21:31)
[2017-02-23] MEDS: INSULIN LISPRO 100 UNIT/ML SUBCUT SCH ×3 (10:13→16:43)
[2017-02-23] MEDS: ASPIRIN EC 81 MG TABLET PO SCH (10:13)
[2017-02-23] MEDS: COLLAGENASE OINT 30 GM TUBE TOP SCH ×2 (10:14)
[2017-02-23] MEDS: INSULIN REGULAR 100 UNIT/ML SUBCUT SCH ×4 (10:14→21:31)
[2017-02-23] MEDS: SODIUM HYPOCHLORITE 0.25% IRRIG 473 ML BOTTLE TOP SCH (10:14)
--- NOTE | 2017-02-23 12:12 | Ultrasound Report ---
US extremity nonvasc LT Clinical Information: cellulitis hand/wrist ?anything to drain Comparison: CT 02/15/2017 Findings: Ultrasound evaluation of the left wrist/forearm/elbow was performed. There are large areas of hypoechogenicity extending throughout a majority of the forearm. Multiple tendons are also visualized, but exactly which tendons are visualized is unknown. Color Doppler does not demonstrate increased blood flow within this hypoechoic area although there is mildly increased blood flow in the adjacent soft tissues, possibly representing cellulitis changes and a prominent tenosynovitis involving a majority of the dorsal forearm/wrist extensor tendons. Exact measurements of this area are not obtained but it appears to extend the entire length of the forearm from the elbow to the wrist and measures up to 1.7 cm thickness. This collection is likely too small for percutaneous catheter based drainage. Impression: Marked inflammation with possible tenosynovitis of the entire extensor compartment with hypodensity suggestive of fluid/edema about extensor tendons extending from the proximal forearm/elbow to the distal wrist and dorsum of the hand. This area appears to be too small and/or limited for percutaneous drainage. Advanced tenosynovitis versus tendon sheath abscess should be considered. Sampling could be obtained with ultrasound guided needle placement. Additional increased blood flow on multiple color Doppler sequences about the area of hypoechogenicity/fluid may represent a surrounding cellulitis. However, consider surgical intervention/washout. Critical findings discussed with Dr. Abarca via telephone at 12:05 PM on the day of the examination. PROCEDURE INTERPRETED AT [facility] DEPARTMENT OF RADIOLOGY Final Report Signed by: Raphael Hampton
--- NOTE | 2017-02-23 13:23 | Event Note ---
We discussed the ultrasound findings of the left forearm and wrist with Dr. Hampton. We will also discuss them with Dr. Goss and plan is for operative intervention. Patient is currently out of his room.
--- NOTE | 2017-02-23 13:23 | General Surgery Progress Note ---
Assessment and Plan (1) Left arm swelling Status: Acute Assessment and plan: I suspect that his swelling is from venous hypertension in his left arm. We will admit him and aggressively elevate his arm. We will consult interventional radiology to see about doing a fistulogram to see if there is a venous outflow stenosis. This was not evident on ultrasound but could be a central venous stenosis causing venous hypertension in his extremity. 02/12: He continues to have arm pain though he says this is a little better than last night. I have had his arm aggressively elevated on an IV pole with a stockinette. He does not have much in the way of edema. It is unclear the etiology of his pain whether this is venous hypertension from a central venous stenosis and high pressure related to the fistula or whether or not this could be pain from a steal type syndrome. It would be unusual to get a steal syndrome this far out from creation of the AV fistula. We will have him evaluated by interventional radiology today. 02/13: The edema of the arm itself is completely resolved. The issue appears to be at the wrist and this may be a primary wrist problem. I do not think that there is an underlying vascular issue as his fistulogram and venogram did not show any evidence of obstruction and the arteries appeared normal down to the wrist. We will check x-rays of his wrist. Whether there is a secondary cellulitis is questionable as well. This patient has had a markedly elevated white blood cell count. We will recheck this. 02/14: He continues to complain of pain at his wrist. It is not red it is not edematous. He is tender over his carpal tunnel. He does not have resolution of his pain with compression of the fistula so I do not think that this is a steal syndrome or ischemia. The etiology of this is unclear. He does have a markedly elevated white blood cell count but I cannot really visualize any infection. The edema that he had in this location is resolved. 02/15: I think it is clear that this is an infectious problem and not a vascular problem. He is on vancomycin. I think that a CT scan may be helpful to look for deep space abscess or infection. 02/16: He continues to have pain. The pain that he describes is more impressive than the appearance of his arm. His mild swelling and faint hint of erythema is located mostly on the dorsal aspect of his wrist and proximal hand. There is minimal tenderness of his forearm musculature. There is really no signs of cyanosis that I can appreciate. I think that his problem is primarily infectious. His white blood cell count is down some and if he remains afebrile. We are continuing vancomycin. CT scan did not show any deep space infection or abscess. I think that it would be worthwhile normally I would check finger pressures but we do not have the capability to do this in the hospital. I can check to see if it is possible to send him from the hospital to my office to have this done in our vascular lab. 02/17: He still complains of pain in his wrist. We have looked for deep space infection. I have repeated a detailed vascular exam where he has a normal Castillo 's test and no augmentation of his flow that I can appreciate by Doppler with compression of his fistula. I do not think this represents a steal syndrome. I do not think that this is an ischemic problem. I think that this is infectious. I do not have evidence of an abscess or necrotizing infection 02/20: This note is a late entry as I saw the patient early this morning. The cellulitis appears to be more focally located over the extensor surface of the hand. There is no obvious fluctuance or abscess or obvious signs of tenosynovitis. Dr. Gil is out of town and I have spoken to Dr. Goss about seeing him today to get his opinion again from orthopedics. 02/22: All swelling and tenderness of the arm is completely gone away. He does still have some localized cellulitis on the dorsum of his left hand. I am leaving this up to hand surgery regarding treatment of this. I did discuss this case with Dr. Goss this morning. I agree with continued treatment with antibiotics. 02/23: The arm swelling and forearm swelling and redness and tenderness has completely resolved. All of his findings are isolated to his hand at this point. Orthopedics is following this. I will sign off for now but will be happy to see him back if there are any changes or any questions. Please feel free to call Current Visit: Yes (2) Chronic renal insufficiency, stage IV (severe) Status: Chronic Assessment and plan: He will probably need to be seen by nephrology to manage dialysis Current Visit: No Subjective Patient reports: Present: feels better, pain is less Exam - Constitutional Vitals: Period Temp Pulse Resp BP Sys/Jo Pulse Ox Last 24 Hr 97.4 F-98.9 F 66-79 18-20 159-188/71-76 95-99 - Extremities Exam Extremities exam: Present: other (The edema and erythema is isolated to the left hand at this point. There is no tenderness or swelling of his forearm.) Results - Labs CBC & BMP: 02/21/17 08:09 02/21/17 08:09
--- NOTE | 2017-02-23 17:48 | Orthopedic Progress Note ---
Orthopedics - Subjective Interval history: Mr Adams's dorsal hand is still erythematous and edematous. His hand still demonstrates extrinsic tightness. He still has a leukocytosis. He has undergone an ultrasound today which demonstrates tenosynovitis. Extensor tenosynovitis left hand Plan: I am going to proceed with an extensor tenosynovectomy, irrigation and debridement of his left hand tomorrow since Mr. Adams has only had a partial response to broad-spectrum antibiotics. I discussed the risks and benefits and rationale for the procedure. Exam - Constitutional Vitals: Period Temp Pulse Resp BP Sys/Jo Pulse Ox Last 24 Hr 98.0 F-98.9 F 66-79 16-20 162-188/71-76 95-99 Results - Labs CBC & BMP: 02/21/17 08:09 02/21/17 08:09
--- NOTE | 2017-02-23 18:04 | Infectious Disease Progress ---
Assessment and Plan (1) Cellulitis Problem details: No clear line of demarcation of erythema. Status: Acute Assessment and plan: Severe cellulitis of the left hand and forearm, slow to resolve, and we now know that he has extensive tenosynovitis involving the extensor tendons of that left forearm and hand. REcommendations: Continue broad-spectrum antibiotics, vancomycin and Zosyn. He is having I&D by orthopedics tomorrow and samples should be sent for bacterial Gram stain and culture, fungal stain and culture as well as AFB stain and culture. Current Visit: Yes (2) Hypertension Status: Acute Current Visit: Yes (3) Diabetes mellitus Status: Acute Current Visit: No (4) Leukocytosis Status: Acute Assessment and plan: Most likely cause is the LUE cellulitis. Current Visit: No Infectious Disease - PN: Subj Interval history: Patient seen this morning, he was doing okay but still had a lot of pain to the left wrist and dorsum of the hand, there is still swollen though somewhat improved since last week. No fever. Infectious Disease Exam (PN) - Constitutional Vitals: Temp Pulse Resp BP Pulse Ox 98.9 F 66 16 166/76 97 02/23/17 16:00 02/23/17 16:00 02/23/17 16:00 02/23/17 16:00 02/23/17 16:00 General appearance: over weight Exam: General appearance: no acute distress - Eye Eye exam: Present: EOMI. no icterus Pupils: Present: YOLANDA - ENT ENT exam: no oral exudates - Respiratory Respiratory exam: vesicular BS, no crepitations or wheezes - Cardiovascular Cardiovascular exam: regular rate and rhythm, no murmurs - GI/Abdominal GI/Abdominal exam: normal bowel sounds, soft, non-tender, no organomegaly or mass - Extremities Exam Extremities exam: The left hand and forearm edema continues to slowly improve. Erythema confined to the dorsum of hand is unchanged since yesterday and that area seems a little more swollen. Moderate tenderness on palpation. - Skin Skin exam: no rash Results - Labs CBC & BMP: 02/21/17 08:09 02/21/17 08:09 Lab Results: I have reviewed the past 24 hour labs - Diagnostic Findings Procedure: Ultrasound: report reviewed by me (Fluid about the extensor tendons indicative of tenosynovitis which is extensive according to the radiologist)
[2017-02-23] MEDS: INSULIN GLARGINE 100 UNIT/ML SUBCUT SCH (21:29)
[2017-02-23] MEDS: SIMVASTATIN 20 MG TABLET PO SCH (21:31)
[2017-02-23] MEDS ORDERED: INSULIN REGULAR 100 UNIT/ML SUBCUT ONE (23:40)
[2017-02-24] MEDS: PIPERACILLIN/TAZOBACTAM 3,375 MG in SODIUM CHLORIDE 0.9% 100 ML IV SCH ×2 (05:52→17:07)
[2017-02-24 05:59] LABS: Basophils % 0.1 % (0.0-0.8); Eosinophils % 0.1 % (0.00-10.9); Hematocrit 29.4 VOL% (42.0-52.0); Hemoglobin 9.7 GM/DL (14.0-18.0); Immature Granulocytes % 1.5 %; Immature Granulocytes Absolute 0.23 #; Lymphocytes % 6.6 % (21.2-54.2); Mean Corpuscular Hemoglobin 32 PG (27-34); Mean Corpuscular Volume 96.4 FL (87-102); Mean Platelet Volume 9.7 FL (9.6-12.0); Monocytes # 0.9 10*3/uL (0.11-0.8); Monocytes % 6.1 % (1.7-12.7); Neutrophils # 13.3 10*3/uL (1.4-7.4); Neutrophils % 85.6 % (38.7-73.9); Platelet Count 291 T/CUMM (130-400); Red Blood Count 3.05 MC/CUMM (3.8-5.5); Red Cell Distribution Width 14.8 % (9.3-17.3); White Blood Count 15.5 T/CUMM (4-12)
[2017-02-24 06:29] LABS: Calcium 7.6 MG/DL (8.5-10.1); Osmolality,Calculated 301.8 MOS/KG (273-304); Potassium 5.1 MMOL/L (3.5-5.1)
[2017-02-24] MEDS ORDERED: BUPIVACAINE 0.5% 50 ML VIAL ONE (08:19)
[2017-02-24] MEDS ORDERED: SEVOFLURANE 1 UNIT/15 MINUTE INH ONE (10:02)
[2017-02-24] MEDS ORDERED: MIDAZOLAM 2 MG/2 ML VIAL ONE (10:02)
[2017-02-24] MEDS ORDERED: PROPOFOL 200 MG/20 ML VIAL IV ONE (10:02)
[2017-02-24] MEDS ORDERED: EPINEPHrine 1 MG/10 ML SYRINGE ONE (10:02)
[2017-02-24] MEDS ORDERED: SODIUM CHLORIDE 0.9% 250 ML IV ONE (10:03)
[2017-02-24] MEDS ORDERED: fentaNYL 100 MCG/2 ML VIAL ONE (10:03)
[2017-02-24] MEDS ORDERED: ePHEDrine 50 MG/ML AMP ONE (10:03)
[2017-02-24] MEDS ORDERED: GLYCOPYRROLATE 0.4 MG/2 ML VIAL ONE (10:03)
[2017-02-24] MEDS ORDERED: ONDANSETRON 4 MG/2 ML VIAL ONE ×2 (10:03→10:11)
[2017-02-24] MEDS ORDERED: ONDANSETRON 4 MG/2 ML VIAL IV PRN (10:06)
[2017-02-24] MEDS ORDERED: HYDROmorphone 2 MG/1 ML VIAL ONE (10:11)
[2017-02-24] MEDS: HYDROmorphone 2 MG/1 ML VIAL IV PRN ×3 (10:12→10:29)
--- NOTE | 2017-02-24 10:14 | Nephrology Progress Note ---
Nephrology - PN: Subj Interval history: Mr. Adams is seen in recovery room following his surgery. He is awake and stable. Plan is to continue with his dialysis and antibiotic therapy. Will follow up on the cultures that were done. Exam (PN)-Nephrology - Vital Signs Vital signs: Period Temp Pulse Resp BP Sys/Jo Pulse Ox Last 24 Hr 97.8 F-99.5 F 66-82 15-20 162-191/68-84 95-100 - Lab 02/24/17 04:38 02/24/17 04:38 Most recent lab results Calcium 7.6 MG/DL (8.5-10.1) L 02/24/17 04:38 Phosphorus 3.9 MG/DL (2.5-4.9) 02/21/17 08:09 Magnesium 2.4 MG/DL (1.8-2.4) 02/21/17 08:09 Assessment and Plan (1) End stage renal disease Status: Chronic Current Visit: No (2) Left arm swelling Status: Acute Current Visit: Yes (3) Diabetes mellitus Status: Acute Current Visit: No
[2017-02-24] MEDS ORDERED: SODIUM CHLORIDE 0.9% 500 ML IV SCH (10:30)
--- NOTE | 2017-02-24 10:41 | Operative Note ---
Date of procedure: 02/24/17 Procedure: DIAGNOSIS: Left forearm and wrist septic extensor tenosynovitis PROCEDURE: Left forearm and wrist extensor tenosynovectomy second, third, fourth , fifth dorsal compartments SURGEON: Ana Paula ANESTHESIA: LMA general PROCEDURE and FINDINGS: After adequate anesthesia was induced, the patient's left upper extremity was prepped and draped in usual sterile fashion. A sterile tourniquet was applied to his form. His limb was gravity exsanguinated. Tourniquet was inflated 250 mmHg. Estimated tourniquet time was approximately 30 minutes. A dorsal incision was made. Purulent fluid was encountered and sent for routine cultures. Necrotic appearing tenosynovium was resected from his second, third, fourth, fifth dorsal compartments. Tourniquet was released. The wound was copiously irrigated and loosely closed with 2-0 nylon vertical mattress sutures. 1/2 inch Fredi drain was placed. A wet-to- dry dressing and a splint in intrinsic positive position was applied. I plan to take him back to surgery Monday for a second look irrigation and debridement. Surgeon / Physician: Armin Goss Jr. Results - Labs CBC & BMP: 02/24/17 04:38 02/24/17 04:38 Discharge Plan - Discharge Medications No Action Insulin Aspart [NovoLOG FlexPen] 5 unit SUBCUT TID Calcium Carbonate 1,000 mg PO TID W/MEALS hydrALAZINE TAB [Apresoline Tab] 50 mg PO TID predniSONE TAB [PredniSONE] 20 mg PO DAILY Indomethacin [Indomethacin Cap] 25 mg PO TID PRN PRN Reason: Pain Insulin Detemir [Levemir FlexPen] 65 unit SUBCUT BEDTIME Carvedilol [Coreg] 25 mg PO BID Aspirin [Ecotrin] 81 mg PO DAILY - Follow Up or Referral - Forms/Instructions
[2017-02-24] MEDS: INSULIN LISPRO 100 UNIT/ML SUBCUT SCH ×3 (11:28→16:07)
[2017-02-24] MEDS: INSULIN REGULAR 100 UNIT/ML SUBCUT SCH ×4 (11:28→21:06)
[2017-02-24] MEDS: CALCIUM (CARBONATE) 500 MG TABLET PO SCH ×3 (11:30→17:07)
[2017-02-24] MEDS: MULTIVITAMIN (BEROCCA) TABLET PO SCH (11:31)
[2017-02-24] MEDS: CARVEDILOL 25 MG TABLET PO SCH ×2 (11:31→21:05)
[2017-02-24] MEDS: ASPIRIN EC 81 MG TABLET PO SCH (11:31)
[2017-02-24] MEDS: ENOXAPARIN 30 MG/0.3 ML SYRINGE SUBCUT SCH (11:32)
[2017-02-24] MEDS: COLLAGENASE OINT 30 GM TUBE TOP SCH ×2 (11:32→11:33)
[2017-02-24] MEDS: SODIUM HYPOCHLORITE 0.25% IRRIG 473 ML BOTTLE TOP SCH (11:32)
--- NOTE | 2017-02-24 12:08 | Infectious Disease Progress ---
Assessment and Plan (1) Cellulitis Problem details: No clear line of demarcation of erythema. Status: Acute Assessment and plan: Cellulitis with tenosynovitis of the left forearm and hand, involving the extensor tendons. REcommendations: Continue broad-spectrum antibiotics and follow-up cultures sent off today. Current Visit: Yes (2) Hypertension Status: Acute Current Visit: Yes (3) Diabetes mellitus Status: Acute Current Visit: No (4) Leukocytosis Status: Acute Assessment and plan: Due to the extensive tenosynovitis of the left forearm and hand. Current Visit: No Infectious Disease - PN: Subj Interval history: Patient went for surgery this morning and purulent fluid was irrigated from the extensor tendon sheath of that left forearm and hand. He has been afebrile. Seen on dialysis and comfortable. Infectious Disease Exam (PN) - Constitutional Vitals: Temp Pulse Resp BP Pulse Ox 99 F 67 16 152/76 95 02/24/17 11:01 02/24/17 11:01 02/24/17 11:01 02/24/17 11:01 02/24/17 11:01 General appearance: over weight Exam: General appearance: no acute distress, drowsy - Eye Eye exam: Present: EOMI. no icterus Pupils: Present: YOLANDA - ENT ENT exam: no oral exudates - Respiratory Respiratory exam: vesicular BS, no crepitations or wheezes - Cardiovascular Cardiovascular exam: regular rate and rhythm, no murmurs - GI/Abdominal GI/Abdominal exam: normal bowel sounds, soft, non-tender, no organomegaly or mass - Extremities Exam Extremities exam: Surgical bandage of her left forearm and hand - Skin Skin exam: no rash Results - Labs CBC & BMP: 02/24/17 04:38 02/24/17 04:38 Lab Results: I have reviewed the past 24 hour labs
--- NOTE | 2017-02-24 12:08 | Anesthesia Post-Op ---
Anesthesia Post OP - Post Ansesthetic Evaluation Patient seen in post op: Yes Resp: within normal limits CV: within normal limits Mental: within normal limits Temp: within normal limits [id number]-[id number]: within normal limits Nausea and Vomiting: within normal limits Pain: within normal limits
--- NOTE | 2017-02-24 12:10 | Dialysis Note ---
Dialysis Note - Dialysis Note Patient seen on hemodialysis, he is tolerating this well will continue his treatment unchanged.
[2017-02-24] MEDS: predniSONE 20 MG TABLET PO SCH (15:22)
[2017-02-24] MEDS: PANTOPRAZOLE 40 MG TABLET PO SCH (15:22)
--- NOTE | 2017-02-24 18:06 | Hospitalist Progress Note ---
Assessment and Plan (1) Tenosynovitis of hand Status: Acute Current Visit: Yes (2) End stage renal disease Status: Chronic Current Visit: No (3) Diabetes mellitus Status: Acute Current Visit: No Hospitalist: Subjective Interval history: No acute events overnight. Patient seen post op tenosynevectomy. He reports pain only mildly relieved with pain medications. Plan is for return to OR monday. Exam - Constitutional Vitals: Period Temp Pulse Resp BP Sys/Jo Pulse Ox Last 24 Hr 97.8 F-99.5 F 66-82 15-20 152-191/68-84 94-100 General appearance: over weight - Head Head exam: Present: normocephalic, atraumatic - Eye Eye exam: Present: EOMI Pupils: Present: YOLANDA - ENT ENT exam: Present: normal exam - Neck Neck exam: Present: normal inspection - Respiratory Respiratory exam: Present: clear to auscultation bilaterally. Absent: wheezes - Cardiovascular Cardiovascular exam: Present: regular rate and rhythm - GI/Abdominal GI/Abdominal exam: Present: normal bowel sounds, soft. Absent: tenderness, rebound - Extremities Exam Extremities exam: Present: other (LUE wrapped) - Back Exam Back exam: Present: normal inspection - Neurological Exam Neurological exam: Present: alert, oriented X3 - Psychiatric Psychiatric exam: Present: normal affect, normal mood - Skin Skin exam: Present: warm, intact Results - Labs CBC & BMP: 02/24/17 04:38 02/24/17 04:38
[2017-02-24] MEDS ORDERED: VANCOMYCIN INJ 750 MG in SODIUM CHLORIDE 0.9% 250 ML IV ONE (21:00)
[2017-02-24] MEDS: SIMVASTATIN 20 MG TABLET PO SCH (21:05)
[2017-02-24] MEDS: INSULIN GLARGINE 100 UNIT/ML SUBCUT SCH (21:06)
[2017-02-25] MEDS: PIPERACILLIN/TAZOBACTAM 3,375 MG in SODIUM CHLORIDE 0.9% 100 ML IV SCH ×2 (06:11→17:06)
[2017-02-25] MEDS: MULTIVITAMIN (BEROCCA) TABLET PO SCH (08:59)
[2017-02-25] MEDS: CALCIUM (CARBONATE) 500 MG TABLET PO SCH ×3 (08:59→17:06)
[2017-02-25] MEDS: ASPIRIN EC 81 MG TABLET PO SCH (08:59)
[2017-02-25] MEDS: PANTOPRAZOLE 40 MG TABLET PO SCH (08:59)
[2017-02-25] MEDS: predniSONE 20 MG TABLET PO SCH (08:59)
[2017-02-25] MEDS: CARVEDILOL 25 MG TABLET PO SCH ×2 (08:59→20:56)
[2017-02-25] MEDS: INSULIN REGULAR 100 UNIT/ML SUBCUT SCH ×4 (09:18→20:54)
[2017-02-25] MEDS: INSULIN LISPRO 100 UNIT/ML SUBCUT SCH ×3 (09:18→17:06)
--- NOTE | 2017-02-25 09:53 | Nephrology Progress Note ---
Nephrology - PN: Subj Interval history: Patient states he is feeling better. He denies shortness of breath. Review of systems GI-he complains of occasional nausea and vomiting Physical exam general the patient is in no acute distress Assessment/plan #1. End-stage renal disease-patient was dialyzed yesterday 2. Left forearm cellulitis-patient had incision and drainage of his left arm wound yesterday will continue antibiotics 3. Anemia-patient's hematocrits around 30% 4. Diabetes mellitus-this is controlled Exam (PN)-Nephrology - Vital Signs Vital signs: Period Temp Pulse Resp BP Sys/Jo Pulse Ox Last 24 Hr 98.2 F-99 F 60-77 15-20 125-172/66-81 94-100 - Lab 02/24/17 04:38 02/24/17 04:38 Most recent lab results Calcium 7.6 MG/DL (8.5-10.1) L 02/24/17 04:38 Phosphorus 3.9 MG/DL (2.5-4.9) 02/21/17 08:09 Magnesium 2.4 MG/DL (1.8-2.4) 02/21/17 08:09
--- NOTE | 2017-02-25 10:23 | Orthopedic Progress Note ---
Assessment and Plan (1) Tenosynovitis of hand Status: Acute Assessment and plan: Wet-to-dry dressing change daily, continue splint Continue antibiotics Follow-up cultures Repeat on the Monday with Dr. oGss Current Visit: Yes Orthopedics - Subjective Interval history: No new complaints. Pain is controlled. Splints clean and dry Cultures are growing gram-positive cocci Exam - Constitutional Vitals: Period Temp Pulse Resp BP Sys/Jo Pulse Ox Last 24 Hr 98.2 F-99 F 60-77 16-20 125-172/66-81 94-100 Results - Labs CBC & BMP: 02/24/17 04:38 02/24/17 04:38
[2017-02-25] MEDS: COLLAGENASE OINT 30 GM TUBE TOP SCH ×2 (15:19)
[2017-02-25] MEDS: SODIUM HYPOCHLORITE 0.25% IRRIG 473 ML BOTTLE TOP SCH (15:19)
--- NOTE | 2017-02-25 16:32 | Hospitalist Progress Note ---
Assessment and Plan - Time spent with patient Time spent with patient: Greater than 30 minutes (1) Tenosynovitis of hand Status: Acute Assessment and plan: Continue antibiotics and await culture results. Current Visit: Yes (2) Diabetes mellitus Status: Acute Assessment and plan: Continue current management. Current Visit: No (3) History of CHF (congestive heart failure) Status: Chronic Assessment and plan: Stable. Current Visit: Yes (4) Anemia Status: Acute Assessment and plan: Has received a total of 2 units. Current Visit: No (5) End stage renal disease on dialysis Problem details: No indication for HD today. Status: Chronic Assessment and plan: Continue hemo Dialysis. Current Visit: No (6) Hypertension Status: Chronic Assessment and plan: Continue current management. Current Visit: No Qualifiers: Hypertension type: essential hypertension Qualified Code(s): I10 - Essential (primary) hypertension Hospitalist: Subjective Interval history: S/P excisional debridement of left forearm with extensor tenosynovitis identified. No overnight events. This is my first encounter with the patient. Exam - Constitutional Vitals: Period Temp Pulse Resp BP Sys/Jo Pulse Ox Last 24 Hr 98.2 F-98.7 F 60-63 18-20 125-153/66-84 96-100 General appearance: no acute distress - Head Head exam: Present: normocephalic, atraumatic - Eye Eye exam: Present: EOMI Pupils: Present: YOLANDA - ENT ENT exam: Present: normal exam - Neck Neck exam: Present: normal inspection - Respiratory Respiratory exam: Present: clear to auscultation bilaterally. Absent: rhonchi, wheezes - Cardiovascular Cardiovascular exam: Present: regular rate and rhythm. Absent: gallop, rubs, systolic murmur - GI/Abdominal GI/Abdominal exam: Present: normal bowel sounds, soft. Absent: distended, firm , guarding, tenderness, rebound - Extremities Exam Extremities exam: Present: normal inspection, other (left arm in dressing.). Absent: calf tenderness, edema Results - Labs CBC & BMP: 02/24/17 04:38 02/24/17 04:38 Lab Results: I have reviewed the past 24 hour labs
[2017-02-25] MEDS: INSULIN GLARGINE 100 UNIT/ML SUBCUT SCH (20:55)
[2017-02-25] MEDS: SIMVASTATIN 20 MG TABLET PO SCH (20:56)
[2017-02-26] MEDS: PIPERACILLIN/TAZOBACTAM 3,375 MG in SODIUM CHLORIDE 0.9% 100 ML IV SCH (06:37)
[2017-02-26] MEDS: INSULIN REGULAR 100 UNIT/ML SUBCUT SCH ×4 (08:54→20:56)
[2017-02-26] MEDS: INSULIN LISPRO 100 UNIT/ML SUBCUT SCH ×3 (08:55→17:34)
[2017-02-26] MEDS: CARVEDILOL 25 MG TABLET PO SCH ×2 (08:55→20:55)
[2017-02-26] MEDS: CALCIUM (CARBONATE) 500 MG TABLET PO SCH ×3 (08:55→17:35)
[2017-02-26] MEDS: predniSONE 20 MG TABLET PO SCH (08:55)
[2017-02-26] MEDS: PANTOPRAZOLE 40 MG TABLET PO SCH (08:55)
[2017-02-26] MEDS: MULTIVITAMIN (BEROCCA) TABLET PO SCH (08:55)
[2017-02-26] MEDS: ENOXAPARIN 30 MG/0.3 ML SYRINGE SUBCUT SCH ×2 (08:55→08:58)
[2017-02-26] MEDS: ASPIRIN EC 81 MG TABLET PO SCH (08:55)
--- NOTE | 2017-02-26 10:08 | Orthopedic Progress Note ---
Assessment and Plan (1) Tenosynovitis of hand Status: Acute Assessment and plan: Wet-to-dry dressing change daily, continue splint Continue antibiotics Follow-up cultures Repeat I&D on tomorrow Current Visit: Yes Orthopedics - Subjective Interval history: No new complaints Dressings clean clean and dry Cultures growing gram-positive cocci Exam - Constitutional Vitals: Period Temp Pulse Resp BP Sys/Jo Pulse Ox Last 24 Hr 98.1 F-99.0 F 61-78 14-20 153-172/75-84 96-98 Results - Labs CBC & BMP: 02/24/17 04:38 02/24/17 04:38
[2017-02-26] MEDS: SODIUM HYPOCHLORITE 0.25% IRRIG 473 ML BOTTLE TOP SCH (13:55)
[2017-02-26] MEDS: COLLAGENASE OINT 30 GM TUBE TOP SCH ×2 (13:55)
--- NOTE | 2017-02-26 14:27 | Hospitalist Progress Note ---
Assessment and Plan - Time spent with patient Time spent with patient: Greater than 30 minutes (1) Tenosynovitis of hand Status: Acute Assessment and plan: Culture grew MRSA currently on vancomycin. He is also on Zosyn will discontinue this. It appears the patient was placed on prednisone at an outside facility for swelling of his hand however that has since been deemed to be secondary to an infection patient has been on prednisone since will begin to taper. Current Visit: Yes (2) Diabetes mellitus Status: Acute Assessment and plan: Continue current management. Current Visit: No (3) History of CHF (congestive heart failure) Status: Chronic Assessment and plan: Stable. Current Visit: Yes (4) Anemia Status: Acute Assessment and plan: Has received a total of 2 units. Current Visit: No (5) End stage renal disease on dialysis Problem details: No indication for HD today. Status: Chronic Assessment and plan: Continue hemo Dialysis. Current Visit: No (6) Hypertension Status: Chronic Assessment and plan: Continue current management. Current Visit: No Qualifiers: Hypertension type: essential hypertension Qualified Code(s): I10 - Essential (primary) hypertension Hospitalist: Subjective Interval history: No complaints overnight events. Exam - Constitutional Vitals: Period Temp Pulse Resp BP Sys/Jo Pulse Ox Last 24 Hr 98.1 F-99.0 F 59-78 14-20 155-172/72-79 95-98 General appearance: no acute distress - Head Head exam: Present: normocephalic, atraumatic - Eye Eye exam: Present: EOMI Pupils: Present: YOLANDA - ENT ENT exam: Present: normal exam - Neck Neck exam: Present: normal inspection - Respiratory Respiratory exam: Present: clear to auscultation bilaterally. Absent: rhonchi, wheezes - Cardiovascular Cardiovascular exam: Present: regular rate and rhythm. Absent: gallop, rubs, systolic murmur - GI/Abdominal GI/Abdominal exam: Present: normal bowel sounds, soft. Absent: distended, firm , guarding, tenderness, rebound - Extremities Exam Extremities exam: Present: normal inspection, other (Left arm and surgical bandaging and dressing). Absent: calf tenderness, edema Results - Labs CBC & BMP: 02/24/17 04:38 02/24/17 04:38 Lab Results: I have reviewed the past 24 hour labs
--- NOTE | 2017-02-26 15:55 | Nephrology Progress Note ---
Nephrology - PN: Subj Interval history: Patient is without complaints Physical exam general patient is in no acute distress Assessment/plan 1. End-stage renal disease-we will plan on hemodialysis tomorrow 2. Left forearm cellulitis-we will continue antibiotics patient status post incision and drainage of this wound 3. Anemia 4. Diabetes mellitus this is controlled Exam (PN)-Nephrology - Vital Signs Vital signs: Period Temp Pulse Resp BP Sys/Jo Pulse Ox Last 24 Hr 98.1 F-99.0 F 59-78 14-20 155-172/72-79 95-98 - Lab 02/24/17 04:38 02/24/17 04:38 Most recent lab results Calcium 7.6 MG/DL (8.5-10.1) L 02/24/17 04:38 Phosphorus 3.9 MG/DL (2.5-4.9) 02/21/17 08:09 Magnesium 2.4 MG/DL (1.8-2.4) 02/21/17 08:09
[2017-02-26] MEDS: SIMVASTATIN 20 MG TABLET PO SCH (20:55)
[2017-02-26] MEDS: INSULIN GLARGINE 100 UNIT/ML SUBCUT SCH (20:56)
[2017-02-27 06:31] LABS: Basophils % 0.2 % (0.0-0.8); Eosinophils # 0.1 10*3/uL (0.0-0.87); Eosinophils % 0.6 % (0.00-10.9); Hematocrit 28.3 VOL% (42.0-52.0); Hemoglobin 9.2 GM/DL (14.0-18.0); Immature Granulocytes % 0.4 %; Immature Granulocytes Absolute 0.04 #; Lymphocytes # 1.3 10*3/uL (1.4-4.0); Mean Corpuscular HGB Conc 32.5 GM/DL (32-36); Mean Corpuscular Hemoglobin 32 PG (27-34); Mean Corpuscular Volume 96.9 FL (87-102); Mean Platelet Volume 9.8 FL (9.6-12.0); Monocytes # 0.8 10*3/uL (0.11-0.8); Monocytes % 7.1 % (1.7-12.7); Neutrophils # 8.5 10*3/uL (1.4-7.4); Neutrophils % 79.7 % (38.7-73.9); Platelet Count 341 T/CUMM (130-400); Red Blood Count 2.92 MC/CUMM (3.8-5.5); Red Cell Distribution Width 14.3 % (9.3-17.3); White Blood Count 10.6 T/CUMM (4-12)
[2017-02-27 07:00] LABS: Calcium 9.2 MG/DL (8.5-10.1); Osmolality,Calculated 294.4 MOS/KG (273-304)
[2017-02-27 07:16] LABS: Potassium 6.1 MMOL/L (3.5-5.1)
[2017-02-27] MEDS: INSULIN REGULAR 100 UNIT/ML SUBCUT SCH ×4 (08:33→22:26)
--- NOTE | 2017-02-27 08:33 | Nephrology Progress Note ---
Nephrology - PN: Subj Interval history: Mr. Adams is seen in follow-up of his end-stage renal disease and infection left arm. Status post drainage on 6 and cultures are growing MRSA. Review of his medicines reveals he has been taking some prednisone this is not a long- term medicine I suspect it was started by someone trying to help the inflammation that he had but we are going to go ahead and taper that hopefully to help with healing of his wound. He will need to continue with his vancomycin therapy. Will dialyze today since his potassium is 6.1 and it is his usual dialysis day. The plan is to go to the operating room for further washout of the wound. Exam (PN)-Nephrology - Vital Signs Vital signs: Period Temp Pulse Resp BP Sys/Jo Pulse Ox Last 24 Hr 98.1 F-99.2 F 59-68 18-20 162-201/71-84 92-98 - Lab 02/27/17 04:44 02/27/17 04:44 Most recent lab results Calcium 9.2 MG/DL (8.5-10.1) D 02/27/17 04:44 Phosphorus 3.9 MG/DL (2.5-4.9) 02/21/17 08:09 Magnesium 2.4 MG/DL (1.8-2.4) 02/21/17 08:09 Assessment and Plan (1) End stage renal disease Status: Chronic Current Visit: No (2) Left arm swelling Status: Deleted Current Visit: Yes (3) Diabetes mellitus Status: Acute Current Visit: No
[2017-02-27] MEDS: INSULIN LISPRO 100 UNIT/ML SUBCUT SCH ×3 (08:34→16:37)
[2017-02-27] MEDS: ENOXAPARIN 30 MG/0.3 ML SYRINGE SUBCUT SCH (08:34)
[2017-02-27] MEDS: PANTOPRAZOLE 40 MG TABLET PO SCH (08:34)
[2017-02-27] MEDS: CALCIUM (CARBONATE) 500 MG TABLET PO SCH ×3 (08:34→16:37)
[2017-02-27] MEDS: MULTIVITAMIN (BEROCCA) TABLET PO SCH (08:34)
[2017-02-27] MEDS: ASPIRIN EC 81 MG TABLET PO SCH (08:34)
[2017-02-27] MEDS: predniSONE 10 MG TABLET PO SCH (08:34)
--- NOTE | 2017-02-27 08:49 | Dialysis Note ---
Dialysis Note - Dialysis Note Mr. Adams is seen during his hemodialysis. He is tolerating dialysis well. He will be going to surgery later today for washout of his left forearm wound.
--- NOTE | 2017-02-27 11:19 | Orthopedic Progress Note ---
Orthopedics - Subjective Interval history: doing well. currently on dialysis splint intact. plan i&d today. all questions answered. Exam - Constitutional Vitals: Period Temp Pulse Resp BP Sys/Jo Pulse Ox Last 24 Hr 98.1 F-99.2 F 59-68 18-20 162-201/71-84 92-98 Results - Labs CBC & BMP: 02/27/17 04:44 02/27/17 04:44
--- NOTE | 2017-02-27 14:13 | Hospitalist Progress Note ---
Assessment and Plan - Time spent with patient Time spent with patient: Greater than 30 minutes (1) Tenosynovitis of hand Status: Acute Assessment and plan: Culture grew MRSA currently on vancomycin. He is also on Zosyn will discontinue this. It appears the patient was placed on prednisone at an outside facility for swelling of his hand however that has since been deemed to be secondary to an infection patient has been on prednisone since will begin to taper. Current Visit: Yes (2) Diabetes mellitus Status: Acute Assessment and plan: Continue current management. Current Visit: No (3) History of CHF (congestive heart failure) Status: Chronic Assessment and plan: Stable. Current Visit: Yes (4) Anemia Status: Acute Assessment and plan: Has received a total of 2 units. Current Visit: No (5) End stage renal disease on dialysis Problem details: No indication for HD today. Status: Chronic Assessment and plan: Continue hemo Dialysis. Current Visit: No (6) Hypertension Status: Chronic Assessment and plan: Continue current management. Current Visit: No Qualifiers: Hypertension type: essential hypertension Qualified Code(s): I10 - Essential (primary) hypertension Hospitalist: Subjective Interval history: Patient returned from dialysis. Has no complaints. No overnight events. Exam - Constitutional Vitals: Period Temp Pulse Resp BP Sys/Jo Pulse Ox Last 24 Hr 98.1 F-99.2 F 61-68 18-20 169-201/71-84 92-98 General appearance: no acute distress - Head Head exam: Present: normocephalic, atraumatic - Eye Eye exam: Present: EOMI Pupils: Present: YOLANDA - ENT ENT exam: Present: normal exam - Neck Neck exam: Present: normal inspection - Respiratory Respiratory exam: Present: clear to auscultation bilaterally. Absent: rhonchi, wheezes - Cardiovascular Cardiovascular exam: Present: regular rate and rhythm. Absent: gallop, rubs, systolic murmur - GI/Abdominal GI/Abdominal exam: Present: normal bowel sounds, soft. Absent: distended, firm , guarding, tenderness, rebound - Extremities Exam Extremities exam: Present: normal inspection, other (Left arm is within surgical dressing). Absent: calf tenderness, edema Results - Labs CBC & BMP: 02/27/17 04:44 02/27/17 04:44 Lab Results: I have reviewed the past 24 hour labs
[2017-02-27] MEDS: CARVEDILOL 25 MG TABLET PO SCH ×2 (14:14→22:01)
[2017-02-27] MEDS: COLLAGENASE OINT 30 GM TUBE TOP SCH ×2 (14:14)
[2017-02-27] MEDS: SODIUM HYPOCHLORITE 0.25% IRRIG 473 ML BOTTLE TOP SCH (14:14)
--- NOTE | 2017-02-27 14:58 | Infectious Disease Progress ---
Assessment and Plan (1) Cellulitis Problem details: No clear line of demarcation of erythema. Status: Deleted Assessment and plan: Cellulitis with tenosynovitis of the left forearm and hand, involving the extensor tendons. REcommendations: Continue vancomycin trough 15-20. Current Visit: Yes (2) Hypertension Status: Acute Current Visit: Yes (3) Diabetes mellitus Status: Acute Current Visit: No (4) Leukocytosis Status: Acute Assessment and plan: Improving since he had I&D of the left forearm and had Current Visit: No (5) Tenosynovitis of hand Status: Acute Assessment and plan: MRSA cultured, leukocytosis improving since surgery. He will be continuing with the vancomycin. Current Visit: Yes Infectious Disease - PN: Subj Interval history: Patient doing okay, awaiting repeat I&D to left forearm and hand today. No fever. Zosyn stopped over the weekend as MRSA was cultured from tendon tissues. Infectious Disease Exam (PN) - Constitutional Vitals: Temp Pulse Resp BP Pulse Ox 98.2 F 64 18 185/82 92 L 02/27/17 07:24 02/27/17 07:24 02/27/17 07:24 02/27/17 07:24 02/27/17 07:24 General appearance: no acute distress Exam: General appearance: no acute distress, getting dialysis - Eye Eye exam: Present: EOMI. no icterus Pupils: Present: YOLANDA - ENT ENT exam: no oral exudates - Respiratory Respiratory exam: vesicular BS, no crepitations or wheezes - Cardiovascular Cardiovascular exam: regular rate and rhythm, no murmurs - GI/Abdominal GI/Abdominal exam: normal bowel sounds, soft, non-tender, no organomegaly or mass - Extremities Exam Extremities exam: Surgical bandage of her left forearm and hand - Skin Skin exam: no rash Results - Labs CBC & BMP: 02/27/17 04:44 02/27/17 04:44 Lab Results: I have reviewed the past 24 hour labs (MRSA from left forearm tissues)
[2017-02-27] MEDS ORDERED: MIDAZOLAM 2 MG/2 ML VIAL ONE (17:52)
[2017-02-27] MEDS ORDERED: fentaNYL 100 MCG/2 ML VIAL ONE (17:52)
--- NOTE | 2017-02-27 18:03 | Operative Note ---
Date of procedure: 02/27/17 Procedure: DIAGNOSIS: Left wrist and forearm septic MRSA extensor tenosynovitis PROCEDURE: Debridement skin, subcutaneous tissue and tenosynovium left wrist forearm (18 x 7 cm) SURGEON: Ana Paula ANESTHESIA: LMA general PROCEDURE and FINDINGS: After adequate anesthesia was induced, the patient's left upper extremity was prepped and draped in usual sterile fashion. The Fredi drain was removed prior to prepping. His previous sutures were removed. The wound was opened. The patient had multiple small areas of necrotic, infected subcutaneous tissue which was resected sharply. Distally the patient had residual tenosynovitis which was excised sharply. The wound was copiously irrigated with normal saline lavage. The wound was then closed loosely with 2-0 nylon vertical mattress and simple sutures . The wound distally was packed with iodoform gauze. A sterile dressing and a short arm splint was applied in an intrinsic positive position. The patient was transferred recovery room in stable condition. Surgeon / Physician: Armin Goss Jr. Results - Labs CBC & BMP: 02/27/17 04:44 02/27/17 14:06 Discharge Plan - Discharge Medications No Action Insulin Aspart [NovoLOG FlexPen] 5 unit SUBCUT TID Calcium Carbonate 1,000 mg PO TID W/MEALS hydrALAZINE TAB [Apresoline Tab] 50 mg PO TID predniSONE TAB [PredniSONE] 20 mg PO DAILY Indomethacin [Indomethacin Cap] 25 mg PO TID PRN PRN Reason: Pain Insulin Detemir [Levemir FlexPen] 65 unit SUBCUT BEDTIME Carvedilol [Coreg] 25 mg PO BID Aspirin [Ecotrin] 81 mg PO DAILY - Follow Up or Referral - Forms/Instructions
[2017-02-27] MEDS ORDERED: VANCOMYCIN INJ 750 MG in SODIUM CHLORIDE 0.9% 250 ML IV ONE (21:00)
[2017-02-27] MEDS: INSULIN GLARGINE 100 UNIT/ML SUBCUT SCH (22:26)
[2017-02-27] MEDS: SIMVASTATIN 20 MG TABLET PO SCH (22:27)
[2017-02-28 05:09] LABS: Basophils % 0.5 % (0.0-0.8); Eosinophils # 0.2 10*3/uL (0.0-0.87); Eosinophils % 2.8 % (0.00-10.9); Hematocrit 29.5 VOL% (42.0-52.0); Hemoglobin 9.7 GM/DL (14.0-18.0); Immature Granulocytes % 0.5 %; Immature Granulocytes Absolute 0.04 #; Lymphocytes # 1.3 10*3/uL (1.4-4.0); Lymphocytes % 14.7 % (21.2-54.2); Mean Corpuscular HGB Conc 32.9 GM/DL (32-36); Mean Corpuscular Hemoglobin 32 PG (27-34); Mean Corpuscular Volume 96.4 FL (87-102); Monocytes # 0.9 10*3/uL (0.11-0.8); Monocytes % 10.6 % (1.7-12.7); Neutrophils # 6.2 10*3/uL (1.4-7.4); Neutrophils % 70.9 % (38.7-73.9); Platelet Count 325 T/CUMM (130-400); Red Blood Count 3.06 MC/CUMM (3.8-5.5); Red Cell Distribution Width 14.4 % (9.3-17.3); White Blood Count 8.7 T/CUMM (4-12)
[2017-02-28 05:47] LABS: Calcium 8.6 MG/DL (8.5-10.1); Osmolality,Calculated 286.5 MOS/KG (273-304); Potassium 4.5 MMOL/L (3.5-5.1)
--- NOTE | 2017-02-28 08:07 | Orthopedic Progress Note ---
Orthopedics - Subjective Interval history: Mr. Adams is comfortable this morning. Dressing and splint taken down. Wound is clean and granulating. The distal ulnar skin edge is ecchymotic about 2 x 2 centimeters. Impression: Left wrist forearm septic MRSA extensor Tenosynovitis Plan: We will have occupational therapy make him a molded splint in intrinsic positive position. Wrist needs to be in slight extension. IP's in extension and MPs in 70 of flexion. He is to wear the splint at night. He is to remove the splint frequently during the day for hand range of motion. Start twice daily wet-to-dry dressing changes. Continue vancomycin per Dr. Hermes Harding's instructions. Agree with weaning the prednisone. Exam - Constitutional Vitals: Period Temp Pulse Resp BP Sys/Jo Pulse Ox Last 24 Hr 97.1 F-98.5 F 54-66 16-22 148-198/58-91 92-100 Results - Labs CBC & BMP: 02/28/17 04:39 02/28/17 04:39
[2017-02-28] MEDS: ENOXAPARIN 30 MG/0.3 ML SYRINGE SUBCUT SCH (09:07)
[2017-02-28] MEDS: CALCIUM (CARBONATE) 500 MG TABLET PO SCH ×3 (09:08→17:29)
[2017-02-28] MEDS: CARVEDILOL 25 MG TABLET PO SCH ×2 (09:08→21:15)
[2017-02-28] MEDS: INSULIN LISPRO 100 UNIT/ML SUBCUT SCH ×3 (09:08→17:29)
[2017-02-28] MEDS: ASPIRIN EC 81 MG TABLET PO SCH (09:09)
[2017-02-28] MEDS: INSULIN REGULAR 100 UNIT/ML SUBCUT SCH ×4 (09:09→21:15)
[2017-02-28] MEDS: PANTOPRAZOLE 40 MG TABLET PO SCH (09:09)
[2017-02-28] MEDS: predniSONE 10 MG TABLET PO SCH (09:09)
[2017-02-28] MEDS: MULTIVITAMIN (BEROCCA) TABLET PO SCH (09:09)
--- NOTE | 2017-02-28 11:59 | Hospitalist Progress Note ---
Assessment and Plan - Time spent with patient Time spent with patient: Greater than 30 minutes (1) Tenosynovitis of hand Status: Acute Assessment and plan: Continue management as per ID. It appears the patient was placed on prednisone at an outside facility for swelling of his hand however that has since been deemed to be secondary to an infection patient has been on prednisone since will begin to taper. Current Visit: Yes (2) Diabetes mellitus Status: Acute Assessment and plan: Continue current management. Current Visit: No (3) History of CHF (congestive heart failure) Status: Chronic Assessment and plan: Stable. Current Visit: Yes (4) Anemia Status: Acute Assessment and plan: Has received a total of 2 units. Current Visit: No (5) End stage renal disease on dialysis Problem details: No indication for HD today. Status: Chronic Assessment and plan: Continue hemo Dialysis. Current Visit: No (6) Hypertension Status: Chronic Assessment and plan: Continue current management. Current Visit: No Qualifiers: Hypertension type: essential hypertension Qualified Code(s): I10 - Essential (primary) hypertension Hospitalist: Subjective Interval history: No complaints overnight events. Yesterday patient had repeated debridement of his left arm Exam - Constitutional Vitals: Period Temp Pulse Resp BP Sys/Jo Pulse Ox Last 24 Hr 97.1 F-98.5 F 54-66 16-22 148-198/58-91 91-100 General appearance: no acute distress - Head Head exam: Present: normocephalic, atraumatic - Eye Eye exam: Present: EOMI Pupils: Present: YOLANDA - ENT ENT exam: Present: normal exam - Neck Neck exam: Present: normal inspection - Respiratory Respiratory exam: Present: clear to auscultation bilaterally. Absent: rhonchi, wheezes - Cardiovascular Cardiovascular exam: Present: regular rate and rhythm. Absent: gallop, rubs, systolic murmur - GI/Abdominal GI/Abdominal exam: Present: normal bowel sounds, soft. Absent: distended, firm , guarding, tenderness, rebound - Extremities Exam Extremities exam: Present: normal inspection, other (Left arm with an surgical dressing). Absent: calf tenderness, edema Results - Labs CBC & BMP: 02/28/17 04:39 02/28/17 04:39 Lab Results: I have reviewed the past 24 hour labs
[2017-02-28] MEDS ORDERED: ONDANSETRON 4 MG/2 ML VIAL ONE (16:40)
[2017-02-28] MEDS ORDERED: ETOMIDATE 20 MG/10 ML VIAL IV ONE (16:40)
[2017-02-28] MEDS ORDERED: LIDOCAINE 2% 5 ML VIAL ONE (16:40)
--- NOTE | 2017-02-28 16:48 | Infectious Disease Progress ---
Assessment and Plan (1) Hypertension Status: Acute Current Visit: Yes (2) Diabetes mellitus Status: Acute Current Visit: No (3) Leukocytosis Status: Acute Assessment and plan: Resolved since he had I&D of the left forearm and had Current Visit: No (4) Tenosynovitis of hand Status: Acute Assessment and plan: MRSA cultured, leukocytosis resolved since surgery. He will be continuing with the vancomycin for at least 2 more weeks, final duration to be determined by his response clinically. Check sedimentation rate and C-reactive protein. Current Visit: Yes Infectious Disease - PN: Subj Interval history: Patient had repeat I&D of left forearm extensor tendons yesterday and infected necrotic tissue was still noted and debrided. He has not had fever. Feeling relatively okay today. Infectious Disease Exam (PN) - Constitutional Vitals: Temp Pulse Resp BP Pulse Ox 98.5 F 62 18 167/75 91 L 02/28/17 11:23 02/28/17 11:23 02/28/17 11:23 02/28/17 11:23 02/28/17 11:23 General appearance: no acute distress Exam: General appearance: no acute distress - Eye Eye exam: Present: EOMI. no icterus Pupils: Present: YOLANDA - ENT ENT exam: no oral exudates - Respiratory Respiratory exam: vesicular BS, no crepitations or wheezes - Cardiovascular Cardiovascular exam: regular rate and rhythm, no murmurs - GI/Abdominal GI/Abdominal exam: normal bowel sounds, soft, non-tender, no organomegaly or mass - Extremities Exam Extremities exam: Left forearm splinted - Skin Skin exam: no rash Results - Labs CBC & BMP: 02/28/17 04:39 02/28/17 04:39 Lab Results: I have reviewed the past 24 hour labs (WBC now normal)
[2017-02-28] MEDS: SODIUM HYPOCHLORITE 0.25% IRRIG 473 ML BOTTLE TOP SCH (17:32)
[2017-02-28] MEDS: COLLAGENASE OINT 30 GM TUBE TOP SCH ×2 (17:33)
[2017-02-28] MEDS: SIMVASTATIN 20 MG TABLET PO SCH (21:14)
[2017-02-28] MEDS: INSULIN GLARGINE 100 UNIT/ML SUBCUT SCH (21:15)
[2017-03-01 05:18] LABS: Basophils % 0.4 % (0.0-0.8); Eosinophils # 0.2 10*3/uL (0.0-0.87); Eosinophils % 2.3 % (0.00-10.9); Hematocrit 26.2 VOL% (42.0-52.0); Hemoglobin 8.4 GM/DL (14.0-18.0); Immature Granulocytes % 0.5 %; Immature Granulocytes Absolute 0.04 #; Lymphocytes # 1.6 10*3/uL (1.4-4.0); Mean Corpuscular HGB Conc 32.1 GM/DL (32-36); Mean Corpuscular Hemoglobin 32 PG (27-34); Mean Corpuscular Volume 98.5 FL (87-102); Mean Platelet Volume 9.2 FL (9.6-12.0); Monocytes # 0.7 10*3/uL (0.11-0.8); Monocytes % 9.7 % (1.7-12.7); Neutrophils # 4.9 10*3/uL (1.4-7.4); Neutrophils % 66.1 % (38.7-73.9); Platelet Count 268 T/CUMM (130-400); Red Blood Count 2.66 MC/CUMM (3.8-5.5); Red Cell Distribution Width 14.1 % (9.3-17.3); White Blood Count 7.4 T/CUMM (4-12)
[2017-03-01 05:51] LABS: Calcium 9.1 MG/DL (8.5-10.1); Osmolality,Calculated 286.8 MOS/KG (273-304); Potassium 4.7 MMOL/L (3.5-5.1)
[2017-03-01] MEDS ORDERED: EPOETIN ALFA 2,000 UNIT/1 ML VIAL IV PRN (07:58)
[2017-03-01] MEDS: INSULIN LISPRO 100 UNIT/ML SUBCUT SCH ×3 (07:59→17:28)
[2017-03-01] MEDS: INSULIN REGULAR 100 UNIT/ML SUBCUT SCH ×4 (07:59→20:17)
--- NOTE | 2017-03-01 08:06 | Case Mgmt Physician Query Form ---
LONG STAY PHYSICIAN RECERTIFICATION *This form is to be completed for all Medicare patients before they reach day 20 of their hospitalization. Please complete each section as appropriate.* I certify that hospitalization, and continued hospitalization, for this patient is medically necessary as follows: 1) Reasons of either continued hospitalization of the patient for medical treatment or medically required diagnostic study or special or unusual services for cost outlier cases are as follows: surgical and medical management of infection 2) Estimated time patient will need to remain in hospital: unknown 3) Plan for Post Hospital Care: ( x) Home with Primary Care Follow up ( ) Home with Home Health Follow up ( ) LTACH/ Acute Care Rehab/ SNF/[facility] ( ) Other: Any questions please contact me Thank you, Jaqueline Arnold RN, MSN, [facility] P:[phone] F:[phone] [email or web address] you have any questions, please contact me. Thank you, Babs Brasher RN, Office : [phone] Email : [email or web address]
--- NOTE | 2017-03-01 08:15 | Nephrology Progress Note ---
Nephrology - PN: Subj Interval history: Mr. Adams is seen in follow-up of his end-stage renal disease. He he will be dialyzed today. His left arm is now in a splint and he feels better. His white count is down. He is afebrile. He continues to receive vancomycin for his MRSA which was grown from the surgical specimen and fluid drained from the tendinitis involving his left forearm and hand. He is eating and has a clear chest and is doing well. Exam (PN)-Nephrology - Vital Signs Vital signs: Period Temp Pulse Resp BP Sys/Jo Pulse Ox Last 24 Hr 98.2 F-99.0 F 59-80 18-18 145-176/69-80 91-99 - Lab 03/01/17 04:44 03/01/17 04:44 Most recent lab results Calcium 9.1 MG/DL (8.5-10.1) 03/01/17 04:44 Phosphorus 3.9 MG/DL (2.5-4.9) 02/21/17 08:09 Magnesium 2.4 MG/DL (1.8-2.4) 02/21/17 08:09 Assessment and Plan (1) End stage renal disease Status: Chronic Current Visit: No (2) Diabetes mellitus Status: Acute Current Visit: No
[2017-03-01] MEDS: CALCIUM (CARBONATE) 500 MG TABLET PO SCH ×3 (08:41→16:21)
[2017-03-01] MEDS: MULTIVITAMIN (BEROCCA) TABLET PO SCH (08:42)
[2017-03-01] MEDS: CARVEDILOL 25 MG TABLET PO SCH ×2 (08:42→20:01)
[2017-03-01] MEDS: PANTOPRAZOLE 40 MG TABLET PO SCH (08:42)
[2017-03-01] MEDS: ENOXAPARIN 30 MG/0.3 ML SYRINGE SUBCUT SCH (08:42)
[2017-03-01] MEDS: ASPIRIN EC 81 MG TABLET PO SCH (08:42)
[2017-03-01] MEDS: SODIUM HYPOCHLORITE 0.25% IRRIG 473 ML BOTTLE TOP SCH (10:22)
[2017-03-01] MEDS: COLLAGENASE OINT 30 GM TUBE TOP SCH ×2 (10:22)
--- NOTE | 2017-03-01 14:07 | Dialysis Note ---
Dialysis Note - Dialysis Note Mr. Adams is seen during his hemodialysis. He is doing well. Will continue antibiotic therapy and hemodialysis.
--- NOTE | 2017-03-01 14:23 | Infectious Disease Progress ---
Assessment and Plan (1) Hypertension Status: Acute Current Visit: Yes (2) Diabetes mellitus Status: Acute Current Visit: No (3) Leukocytosis Status: Acute Assessment and plan: Resolved since he had I&D of the left forearm and hand Current Visit: No (4) Tenosynovitis of hand Status: Acute Assessment and plan: MRSA cultured, leukocytosis resolved since surgery. Inflammatory markers a bit elevated. He will be continuing with the vancomycin for at least 2 more weeks, final duration to be determined by his response clinically. Hopefully inflammatory markers were decreased with treatment. Current Visit: Yes Infectious Disease - PN: Subj Interval history: Patient doing okay, saw him on dialysis this morning. He has not had fever. Less pain to left forearm. Infectious Disease Exam (PN) - Constitutional Vitals: Temp Pulse Resp BP Pulse Ox 98.9 F 63 18 168/70 97 03/01/17 06:56 03/01/17 06:56 03/01/17 06:56 03/01/17 06:56 03/01/17 06:56 General appearance: no acute distress Exam: General appearance: no acute distress - Eye Eye exam: Present: EOMI. no icterus Pupils: Present: YOLANDA - ENT ENT exam: no oral exudates - Respiratory Respiratory exam: vesicular BS, no crepitations or wheezes - Cardiovascular Cardiovascular exam: regular rate and rhythm, no murmurs - GI/Abdominal GI/Abdominal exam: normal bowel sounds, soft, non-tender, no organomegaly or mass - Extremities Exam Extremities exam: Left forearm splinted - Skin Skin exam: no rash Results - Labs CBC & BMP: 03/01/17 04:44 03/01/17 04:44 Lab Results: I have reviewed the past 24 hour labs
--- NOTE | 2017-03-01 14:41 | Hospitalist Progress Note ---
Assessment and Plan - Time spent with patient Time spent with patient: Greater than 30 minutes (1) Tenosynovitis of hand Status: Acute Assessment and plan: Continue management as per ID. Current Visit: Yes (2) Diabetes mellitus Status: Acute Assessment and plan: Continue current management. Current Visit: No (3) History of CHF (congestive heart failure) Status: Chronic Assessment and plan: Stable. Current Visit: Yes (4) Anemia Status: Acute Assessment and plan: Has received a total of 2 units. Current Visit: No (5) End stage renal disease on dialysis Problem details: No indication for HD today. Status: Chronic Assessment and plan: Continue hemo Dialysis. Current Visit: No (6) Hypertension Status: Chronic Assessment and plan: Continue current management. Current Visit: No Qualifiers: Hypertension type: essential hypertension Qualified Code(s): I10 - Essential (primary) hypertension Hospitalist: Subjective Interval history: No complaints overnight events. Exam - Constitutional Vitals: Period Temp Pulse Resp BP Sys/Jo Pulse Ox Last 24 Hr 98.2 F-99.0 F 59-80 18-18 145-176/69-80 95-99 General appearance: no acute distress - Head Head exam: Present: normocephalic, atraumatic - Eye Eye exam: Present: EOMI Pupils: Present: YOLANDA - ENT ENT exam: Present: normal exam - Neck Neck exam: Present: normal inspection - Respiratory Respiratory exam: Present: clear to auscultation bilaterally. Absent: rhonchi, wheezes - Cardiovascular Cardiovascular exam: Present: regular rate and rhythm. Absent: gallop, rubs, systolic murmur - GI/Abdominal GI/Abdominal exam: Present: normal bowel sounds, soft. Absent: distended, firm , guarding, tenderness, rebound - Extremities Exam Extremities exam: Present: normal inspection, other (Left arm with an surgical dressing). Absent: calf tenderness, edema Results - Labs CBC & BMP: 03/01/17 04:44 03/01/17 04:44 Lab Results: I have reviewed the past 24 hour labs
[2017-03-01] MEDS ORDERED: VANCOMYCIN INJ 750 MG in SODIUM CHLORIDE 0.9% 250 ML IV ONE (17:00)
[2017-03-01] MEDS: SIMVASTATIN 20 MG TABLET PO SCH (20:01)
[2017-03-01] MEDS: INSULIN GLARGINE 100 UNIT/ML SUBCUT SCH (20:05)
[2017-03-02 05:34] LABS: Calcium 8.5 MG/DL (8.5-10.1); Osmolality,Calculated 286.7 MOS/KG (273-304); Potassium 4.9 MMOL/L (3.5-5.1)
[2017-03-02 06:45] LABS: Basophils % 0.6 % (0.0-0.8); Eosinophils # 0.3 10*3/uL (0.0-0.87); Eosinophils % 3.6 % (0.00-10.9); Hematocrit 28.5 VOL% (42.0-52.0); Hemoglobin 9.3 GM/DL (14.0-18.0); Immature Granulocytes % 0.6 %; Immature Granulocytes Absolute 0.04 #; Lymphocytes # 1.5 10*3/uL (1.4-4.0); Lymphocytes % 21.2 % (21.2-54.2); Mean Corpuscular HGB Conc 32.6 GM/DL (32-36); Mean Corpuscular Hemoglobin 32 PG (27-34); Mean Corpuscular Volume 96.6 FL (87-102); Mean Platelet Volume 9.7 FL (9.6-12.0); Monocytes # 0.8 10*3/uL (0.11-0.8); Monocytes % 11.1 % (1.7-12.7); Neutrophils # 4.3 10*3/uL (1.4-7.4); Neutrophils % 62.9 % (38.7-73.9); Platelet Count 309 T/CUMM (130-400); Red Blood Count 2.95 MC/CUMM (3.8-5.5); Red Cell Distribution Width 14.1 % (9.3-17.3); White Blood Count 6.9 T/CUMM (4-12)
[2017-03-02] MEDS: ASPIRIN EC 81 MG TABLET PO SCH (08:36)
[2017-03-02] MEDS: MULTIVITAMIN (BEROCCA) TABLET PO SCH (08:36)
[2017-03-02] MEDS: PANTOPRAZOLE 40 MG TABLET PO SCH (08:36)
[2017-03-02] MEDS: CARVEDILOL 25 MG TABLET PO SCH ×2 (08:37→20:53)
[2017-03-02] MEDS: INSULIN LISPRO 100 UNIT/ML SUBCUT SCH ×3 (08:38→16:25)
[2017-03-02] MEDS: ENOXAPARIN 30 MG/0.3 ML SYRINGE SUBCUT SCH (08:39)
[2017-03-02] MEDS: INSULIN REGULAR 100 UNIT/ML SUBCUT SCH ×4 (08:42→20:52)
[2017-03-02] MEDS: SODIUM HYPOCHLORITE 0.25% IRRIG 473 ML BOTTLE TOP SCH (08:44)
[2017-03-02] MEDS: CALCIUM (CARBONATE) 500 MG TABLET PO SCH ×3 (09:48→16:42)
[2017-03-02] MEDS: COLLAGENASE OINT 30 GM TUBE TOP SCH ×2 (09:51)
--- NOTE | 2017-03-02 11:56 | Hospitalist Progress Note ---
Assessment and Plan - Time spent with patient Time spent with patient: Greater than 30 minutes (1) Tenosynovitis of hand Status: Acute Assessment and plan: Continue management as per ID. Current Visit: Yes (2) Diabetes mellitus Status: Acute Assessment and plan: Continue current management. Current Visit: No (3) History of CHF (congestive heart failure) Status: Chronic Assessment and plan: Stable. Current Visit: Yes (4) Anemia Status: Acute Assessment and plan: Has received a total of 2 units. Current Visit: No (5) End stage renal disease on dialysis Problem details: No indication for HD today. Status: Chronic Assessment and plan: Continue hemo Dialysis. Current Visit: No (6) Hypertension Status: Chronic Assessment and plan: Continue current management. Current Visit: No Qualifiers: Hypertension type: essential hypertension Qualified Code(s): I10 - Essential (primary) hypertension Hospitalist: Subjective Interval history: No complaints overnight events Exam - Constitutional Vitals: Period Temp Pulse Resp BP Sys/Jo Pulse Ox Last 24 Hr 97.4 F-99.0 F 57-69 17-20 145-195/67-79 97-99 General appearance: no acute distress - Head Head exam: Present: normocephalic, atraumatic - Eye Eye exam: Present: EOMI Pupils: Present: YOLANDA - ENT ENT exam: Present: normal exam - Neck Neck exam: Present: normal inspection - Respiratory Respiratory exam: Present: clear to auscultation bilaterally. Absent: rhonchi, wheezes - Cardiovascular Cardiovascular exam: Present: regular rate and rhythm. Absent: gallop, rubs, systolic murmur - GI/Abdominal GI/Abdominal exam: Present: normal bowel sounds, soft. Absent: distended, firm , guarding, tenderness, rebound - Extremities Exam Extremities exam: Present: normal inspection. Absent: calf tenderness, edema Results - Labs CBC & BMP: 03/02/17 04:01 03/02/17 04:01 Lab Results: I have reviewed the past 24 hour labs
--- NOTE | 2017-03-02 14:02 | Infectious Disease Progress ---
Assessment and Plan (1) Hypertension Status: Acute Current Visit: Yes (2) Diabetes mellitus Status: Acute Current Visit: No (3) Leukocytosis Status: Acute Assessment and plan: Resolved since he had I&D of the left forearm and hand Current Visit: No (4) Tenosynovitis of hand Status: Acute Assessment and plan: MRSA cultured, leukocytosis resolved since surgery. Inflammatory markers elevated. He will be continuing with the vancomycin for at least 2 more weeks, final duration to be determined by his response clinically. Current Visit: Yes Infectious Disease - PN: Subj Interval history: Doing ok, afebrile, minimal pain to Lt forearm. Infectious Disease Exam (PN) - Constitutional Vitals: Temp Pulse Resp BP Pulse Ox 97.6 F 59 L 19 145/77 97 03/02/17 11:12 03/02/17 11:12 03/02/17 11:12 03/02/17 11:12 03/02/17 11:12 General appearance: no acute distress Exam: General appearance: no acute distress - Eye Eye exam: Present: EOMI. no icterus Pupils: Present: YOLANDA - ENT ENT exam: no oral exudates - Respiratory Respiratory exam: vesicular BS, no crepitations or wheezes - Cardiovascular Cardiovascular exam: regular rate and rhythm, no murmurs - GI/Abdominal GI/Abdominal exam: normal bowel sounds, soft, non-tender, no organomegaly or mass - Extremities Exam Extremities exam: Left forearm bandaged - Skin Skin exam: no rash Results - Labs CBC & BMP: 03/02/17 04:01 03/02/17 04:01 Lab Results: I have reviewed the past 24 hour labs
--- NOTE | 2017-03-02 14:20 | Nephrology Progress Note ---
Nephrology - PN: Subj Interval history: Mr. Adams is seen in follow-up of his end-stage renal disease and his infection in his left arm now status post drainage. He is receiving vancomycin for MRSA cultured from the tenosynovitis in the left forearm. We can give that vancomycin with his outpatient dialysis. I do not know what he will need is for his therapy following discharge but certainly believe we can accommodate the vancomycin as an outpatient. He is doing well overall is cheerful and his chest is clear. White count is now down. Exam (PN)-Nephrology - Vital Signs Vital signs: Period Temp Pulse Resp BP Sys/Jo Pulse Ox Last 24 Hr 97.4 F-99.0 F 59-69 17-20 145-195/67-79 97-99 - Lab 03/02/17 04:01 03/02/17 04:01 Most recent lab results Calcium 8.5 MG/DL (8.5-10.1) 03/02/17 04:01 Phosphorus 3.9 MG/DL (2.5-4.9) 02/21/17 08:09 Magnesium 2.4 MG/DL (1.8-2.4) 02/21/17 08:09 Assessment and Plan (1) End stage renal disease Status: Chronic Current Visit: No (2) Diabetes mellitus Status: Acute Current Visit: No
[2017-03-02] MEDS: INSULIN GLARGINE 100 UNIT/ML SUBCUT SCH (20:52)
[2017-03-02] MEDS: SIMVASTATIN 20 MG TABLET PO SCH (20:53)
--- NOTE | 2017-03-03 07:10 | Orthopedic Progress Note ---
Orthopedics - Subjective Interval history: Patient seen yesterday a.m. dressing taken down moderate serosanguineous drainage continue twice daily dressing changes Exam - Constitutional Vitals: Period Temp Pulse Resp BP Sys/Jo Pulse Ox Last 24 Hr 97.6 F-98.7 F 59-68 17-20 140-185/71-78 97-99 Results - Labs CBC & BMP: 03/02/17 04:01 03/02/17 04:01
--- NOTE | 2017-03-03 09:13 | Dialysis Note ---
Dialysis Note - Dialysis Note Mr. Adams seen during his hemodialysis. He is tolerating dialysis well. He continues to receive vancomycin which she will receive for several weeks. As per Dr. Harding the duration of that therapy will be determined by his clinical response. Dressing changes are ongoing twice daily with his left arm wound. Overall he is much improved.
--- NOTE | 2017-03-03 11:48 | Infectious Disease Progress ---
Assessment and Plan (1) Hypertension Status: Acute Current Visit: Yes (2) Diabetes mellitus Status: Acute Current Visit: No (3) Leukocytosis Status: Resolved Assessment and plan: Resolved since he had I&D of the left forearm and hand Current Visit: No (4) Tenosynovitis of hand Status: Acute Assessment and plan: MRSA cultured, leukocytosis resolved since surgery. Inflammatory markers elevated. Apparently this is some drainage from the wounds that he remain hospital longer. He is continued vancomycin until we have significant improvement in the inflammatory markers. Current Visit: Yes Infectious Disease - PN: Subj Interval history: No complaints today, reportedly the left forearm wound still has a bit of drainage and so the patient [facility]. He has been afebrile. Infectious Disease Exam (PN) - Constitutional Vitals: Temp Pulse Resp BP Pulse Ox 98.2 F 65 18 156/71 97 03/03/17 07:00 03/03/17 07:00 03/03/17 07:00 03/03/17 07:00 03/03/17 07:00 General appearance: no acute distress Exam: General appearance: no acute distress, was getting dialysis when I saw him - Eye Eye exam: Present: EOMI. no icterus Pupils: Present: YOLANDA - ENT ENT exam: no oral exudates - Respiratory Respiratory exam: vesicular BS, no crepitations or wheezes - Cardiovascular Cardiovascular exam: regular rate and rhythm, no murmurs - GI/Abdominal GI/Abdominal exam: normal bowel sounds, soft, non-tender, no organomegaly or mass - Extremities Exam Extremities exam: Left forearm bandaged, some drainage on the gauze - Skin Skin exam: no rash Results - Labs CBC & BMP: 03/02/17 04:01 03/02/17 04:01 Lab Results: I have reviewed the past 24 hour labs
--- NOTE | 2017-03-03 11:58 | Hospitalist Progress Note ---
Assessment and Plan - Time spent with patient Time spent with patient: Greater than 30 minutes (1) Tenosynovitis of hand Status: Acute Assessment and plan: Continue management as per ID. Current Visit: Yes (2) Diabetes mellitus Status: Acute Assessment and plan: Continue current management. Current Visit: No (3) History of CHF (congestive heart failure) Status: Chronic Assessment and plan: Stable. Current Visit: Yes (4) Anemia Status: Acute Assessment and plan: Has received a total of 2 units. Current Visit: No (5) End stage renal disease on dialysis Problem details: No indication for HD today. Status: Chronic Assessment and plan: Continue hemo Dialysis. Current Visit: No (6) Hypertension Status: Chronic Assessment and plan: Continue current management. Current Visit: No Qualifiers: Hypertension type: essential hypertension Qualified Code(s): I10 - Essential (primary) hypertension Hospitalist: Subjective Interval history: No complaints or overnight events. Exam - Constitutional Vitals: Period Temp Pulse Resp BP Sys/Jo Pulse Ox Last 24 Hr 97.6 F-98.7 F 62-68 18-20 140-185/71-78 97-99 General appearance: no acute distress - Head Head exam: Present: normocephalic, atraumatic - Eye Eye exam: Present: EOMI Pupils: Present: YOLANDA - ENT ENT exam: Present: normal exam - Neck Neck exam: Present: normal inspection - Respiratory Respiratory exam: Present: clear to auscultation bilaterally. Absent: rhonchi, wheezes - Cardiovascular Cardiovascular exam: Present: regular rate and rhythm. Absent: gallop, rubs, systolic murmur - GI/Abdominal GI/Abdominal exam: Present: normal bowel sounds, soft. Absent: distended, firm , guarding, tenderness, rebound - Extremities Exam Extremities exam: Present: normal inspection, other (left arm within surgical dressing). Absent: calf tenderness, edema Results - Labs CBC & BMP: 03/02/17 04:01 03/02/17 04:01 Lab Results: I have reviewed the past 24 hour labs
[2017-03-03] MEDS: ASPIRIN EC 81 MG TABLET PO SCH (12:18)
[2017-03-03] MEDS: CALCIUM (CARBONATE) 500 MG TABLET PO SCH ×3 (12:18→15:59)
[2017-03-03] MEDS: ENOXAPARIN 30 MG/0.3 ML SYRINGE SUBCUT SCH (12:18)
[2017-03-03] MEDS: MULTIVITAMIN (BEROCCA) TABLET PO SCH (12:18)
[2017-03-03] MEDS: CARVEDILOL 25 MG TABLET PO SCH ×2 (12:18→20:45)
[2017-03-03] MEDS: PANTOPRAZOLE 40 MG TABLET PO SCH (12:19)
[2017-03-03] MEDS: COLLAGENASE OINT 30 GM TUBE TOP SCH ×2 (12:22)
[2017-03-03] MEDS: INSULIN REGULAR 100 UNIT/ML SUBCUT SCH ×4 (12:22→20:48)
[2017-03-03] MEDS: SODIUM HYPOCHLORITE 0.25% IRRIG 473 ML BOTTLE TOP SCH (12:22)
[2017-03-03] MEDS: INSULIN LISPRO 100 UNIT/ML SUBCUT SCH ×3 (12:23→19:01)
[2017-03-03] MEDS ORDERED: VANCOMYCIN INJ 750 MG in SODIUM CHLORIDE 0.9% 250 ML IV ONE (17:00)
[2017-03-03] MEDS: SIMVASTATIN 20 MG TABLET PO SCH (20:45)
[2017-03-03] MEDS: INSULIN GLARGINE 100 UNIT/ML SUBCUT SCH (20:49)
[2017-03-04 05:28] LABS: Basophils % 0.6 % (0.0-0.8); Eosinophils # 0.3 10*3/uL (0.0-0.87); Hematocrit 26.1 VOL% (42.0-52.0); Hemoglobin 8.4 GM/DL (14.0-18.0); Immature Granulocytes % 0.6 %; Immature Granulocytes Absolute 0.04 #; Lymphocytes # 1.4 10*3/uL (1.4-4.0); Lymphocytes % 21.4 % (21.2-54.2); Mean Corpuscular HGB Conc 32.2 GM/DL (32-36); Mean Corpuscular Hemoglobin 31 PG (27-34); Mean Platelet Volume 9.4 FL (9.6-12.0); Monocytes # 0.6 10*3/uL (0.11-0.8); Monocytes % 9.5 % (1.7-12.7); Neutrophils # 4.2 10*3/uL (1.4-7.4); Neutrophils % 62.9 % (38.7-73.9); Platelet Count 232 T/CUMM (130-400); Red Blood Count 2.72 MC/CUMM (3.8-5.5); White Blood Count 6.6 T/CUMM (4-12)
[2017-03-04 06:08] LABS: Calcium 8.1 MG/DL (8.5-10.1); Osmolality,Calculated 280.7 MOS/KG (273-304); Potassium 4.5 MMOL/L (3.5-5.1)
--- NOTE | 2017-03-04 08:03 | Nephrology Progress Note ---
Nephrology - PN: Subj Interval history: Patient is sitting up on side of bed resting comfortably no acute changes. Afebrile vital signs have been stable. He tolerated dialysis on yesterday. Exam (PN)-Nephrology - Vital Signs Vital signs: Period Temp Pulse Resp BP Sys/Jo Pulse Ox Last 24 Hr 97.5 F-99.5 F 62-72 18-20 114-166/53-70 96-100 - General Appearance General appearance: well-developed, well-nourished EENT: ATNC Neck: supple Respiratory: clear Cardiology: regular rate, regular rhythm Gastrointestinal: normoactive bowel sounds, no tenderness Neurologic: alert and oriented x3 Musculoskeletal: deformities (Left arm and hand is bandaged), no clubbing Psychiatric: mood/affect appropriate - Lab 03/04/17 05:07 03/04/17 05:07 Most recent lab results Calcium 8.1 MG/DL (8.5-10.1) L 03/04/17 05:07 Phosphorus 3.9 MG/DL (2.5-4.9) 02/21/17 08:09 Magnesium 2.4 MG/DL (1.8-2.4) 02/21/17 08:09 Assessment and Plan (1) Hypertension Status: Chronic Current Visit: No Qualifiers: Hypertension type: essential hypertension Qualified Code(s): I10 - Essential (primary) hypertension (2) Diabetes mellitus type 2 in obese Status: Chronic Current Visit: No (3) End stage renal disease on dialysis Problem details: No indication for HD today. Status: Chronic Current Visit: No (4) Tenosynovitis of hand Status: Acute Current Visit: Yes
--- NOTE | 2017-03-04 08:50 | Orthopedic Progress Note ---
Orthopedics - Subjective Interval history: Wound improved less drainage on dressing. Continue twice daily dressing changes. Exam - Constitutional Vitals: Period Temp Pulse Resp BP Sys/Jo Pulse Ox Last 24 Hr 97.5 F-99.5 F 61-72 16-20 114-166/53-75 96-100 Results - Labs CBC & BMP: 03/04/17 05:07 03/04/17 05:07
[2017-03-04] MEDS: ENOXAPARIN 30 MG/0.3 ML SYRINGE SUBCUT SCH (09:02)
[2017-03-04] MEDS: MULTIVITAMIN (BEROCCA) TABLET PO SCH (09:02)
[2017-03-04] MEDS: CALCIUM (CARBONATE) 500 MG TABLET PO SCH ×3 (09:02→16:52)
[2017-03-04] MEDS: PANTOPRAZOLE 40 MG TABLET PO SCH (09:02)
[2017-03-04] MEDS: INSULIN LISPRO 100 UNIT/ML SUBCUT SCH ×3 (09:03→19:21)
[2017-03-04] MEDS: INSULIN REGULAR 100 UNIT/ML SUBCUT SCH ×4 (09:03→21:48)
[2017-03-04] MEDS: ASPIRIN EC 81 MG TABLET PO SCH (09:03)
[2017-03-04] MEDS: CARVEDILOL 25 MG TABLET PO SCH ×2 (09:07→21:47)
[2017-03-04] MEDS ORDERED: INSULIN GLARGINE 100 UNIT/ML SUBCUT SCH (12:28)
[2017-03-04] MEDS: COLLAGENASE OINT 30 GM TUBE TOP SCH ×2 (12:29)
[2017-03-04] MEDS: SODIUM HYPOCHLORITE 0.25% IRRIG 473 ML BOTTLE TOP SCH (12:29)
--- NOTE | 2017-03-04 12:31 | Hospitalist Progress Note ---
Assessment and Plan - Time spent with patient Time spent with patient: Greater than 30 minutes (1) Tenosynovitis of hand Status: Acute Assessment and plan: Continue management as per ID. Current Visit: Yes (2) Diabetes mellitus Status: Acute Assessment and plan: Decrease long acting insulin to 30 units from 40. Decrease mealtime to 10 from 13. Current Visit: No (3) History of CHF (congestive heart failure) Status: Chronic Assessment and plan: Stable. Current Visit: Yes (4) Anemia Status: Acute Assessment and plan: Has received a total of 2 units. Current Visit: No (5) End stage renal disease on dialysis Problem details: No indication for HD today. Status: Chronic Assessment and plan: Continue hemo Dialysis. Current Visit: No (6) Hypertension Status: Chronic Assessment and plan: Continue current management. Current Visit: No Qualifiers: Hypertension type: essential hypertension Qualified Code(s): I10 - Essential (primary) hypertension Hospitalist: Subjective Interval history: Blood sugar was low 3 hours after administration of breakfast insulin. 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 Exam - Constitutional Vitals: Period Temp Pulse Resp BP Sys/Jo Pulse Ox Last 24 Hr 97.5 F-99.5 F 61-67 16-20 128-166/53-75 98-100 General appearance: no acute distress - Head Head exam: Present: normocephalic, atraumatic - Eye Eye exam: Present: EOMI Pupils: Present: YOLANDA - ENT ENT exam: Present: normal exam - Neck Neck exam: Present: normal inspection - Respiratory Respiratory exam: Present: clear to auscultation bilaterally. Absent: rhonchi, wheezes - Cardiovascular Cardiovascular exam: Present: regular rate and rhythm. Absent: gallop, rubs, systolic murmur - GI/Abdominal GI/Abdominal exam: Present: normal bowel sounds, soft. Absent: distended, firm , guarding, tenderness, rebound - Extremities Exam Extremities exam: Present: normal inspection, other (Left arm with an surgical dressing.). Absent: calf tenderness, edema Results - Labs CBC & BMP: 03/04/17 05:07 03/04/17 05:07 Lab Results: I have reviewed the past 24 hour labs
[2017-03-04] MEDS: SIMVASTATIN 20 MG TABLET PO SCH (21:47)
--- NOTE | 2017-03-05 09:08 | Nephrology Progress Note ---
Nephrology - PN: Subj Interval history: The patient sitting up eating his breakfast and no complaints. Afebrile vital signs are stable. Exam (PN)-Nephrology - Vital Signs Vital signs: Period Temp Pulse Resp BP Sys/Jo Pulse Ox Last 24 Hr 96.7 F-99 F 56-69 14-20 106-156/67-74 97-99 - General Appearance General appearance: well-developed, well-nourished EENT: ATNC Neck: supple Respiratory: clear Cardiology: regular rate, regular rhythm Gastrointestinal: normoactive bowel sounds, no tenderness Integumentary: no rash Neurologic: alert and oriented x3 - Lab 03/04/17 05:07 03/04/17 05:07 Most recent lab results Calcium 8.1 MG/DL (8.5-10.1) L 03/04/17 05:07 Phosphorus 3.9 MG/DL (2.5-4.9) 02/21/17 08:09 Magnesium 2.4 MG/DL (1.8-2.4) 02/21/17 08:09 Assessment and Plan (1) Hypertension Status: Chronic Current Visit: No Qualifiers: Hypertension type: essential hypertension Qualified Code(s): I10 - Essential (primary) hypertension (2) Diabetes mellitus type 2 in obese Status: Chronic Current Visit: No (3) End stage renal disease on dialysis Problem details: No indication for HD today. Status: Chronic Current Visit: No (4) Tenosynovitis of hand Status: Acute Current Visit: Yes
[2017-03-05] MEDS: CALCIUM (CARBONATE) 500 MG TABLET PO SCH ×3 (09:12→16:22)
[2017-03-05] MEDS: ASPIRIN EC 81 MG TABLET PO SCH (09:12)
[2017-03-05] MEDS: CARVEDILOL 25 MG TABLET PO SCH (09:12)
[2017-03-05] MEDS: MULTIVITAMIN (BEROCCA) TABLET PO SCH (09:12)
[2017-03-05] MEDS: PANTOPRAZOLE 40 MG TABLET PO SCH (09:12)
[2017-03-05] MEDS: INSULIN REGULAR 100 UNIT/ML SUBCUT SCH ×2 (09:13→14:46)
[2017-03-05] MEDS: INSULIN LISPRO 100 UNIT/ML SUBCUT SCH ×2 (09:13→14:45)
[2017-03-05] MEDS: ENOXAPARIN 30 MG/0.3 ML SYRINGE SUBCUT SCH ×2 (09:14→09:17)
--- NOTE | 2017-03-05 10:46 | Discharge Summary ---
Hospital Course - Hospital Course Hospital Course: Mr. Adams is a 51-year-old male with diabetes mellitus and end-stage renal disease on hemodialysis who presented with left upper extremity swelling. Initially this was felt to be dysfunction or occlusion of his hemodialysis fistula. On admission the patient was initiated on broad-spectrum antibiotics with concern for sepsis as a differential. Patient had a ultrasound of his upper extremity to evaluate for DVT which was negative. Furthermore he had an AV fistulogram which revealed no central venous obstruction. Surgery, nephrology and infectious disease were consulted during this time. Patient had a CT of his forearm which revealed soft tissue swelling. Ultimately the patient was taken to surgery by orthopedics and was discovered to have septic extensor tenosynovitis. He was taken again back to surgery for second time for washout. Cultures returned MRSA and at this time his antibiotic therapy was tailored to vancomycin only. At discharge patient will require another 2 weeks of treatment. Patient will receive vancomycin postdialysis. He will follow-up with infectious disease as an outpatient. Furthermore he will follow-up with orthopedics and received wound care through home health. By discharge he had met maximum benefit of hospitalization. I spent 45 minutes coordinating this discharge. - Time spent with patient Time with patient DS: Greater than 30 minutes Diagnosis - Discharge Diagnosis (1) Tenosynovitis of hand Status: Acute (2) Diabetes mellitus Status: Acute (3) History of CHF (congestive heart failure) Status: Chronic (4) Anemia Status: Acute (5) End stage renal disease on dialysis Status: Chronic (6) Hypertension Status: Chronic Specialty Discharge - Follow Up or Referrals Follow up with: Armin Goss Jr., MD [Physician] - (CALL OFFICE ON MONDAY TO SCHEDULE AN APOINTMENT FOR MONDAY OR MONDAY) Discharge Plan - Discharge Data Disposition: Disch To Home/Self Care Condition at Discharge: Stable Discharge Diet: advance to your usual diet Activity: resume usual activities as tolerated - Discharge Medications New Vancomycin Inj 750 mg IV PRN PRN vial PRN Reason: PHARMACY DOSING HYDROcodone/ACETAMIN 7.5-325 [[place] 7.5-325] 1 tablet PO Q4H PRN #20 tablet PRN Reason: Pain Moderate (4-7) Continue Calcium Carbonate 1,000 mg PO TID W/MEALS hydrALAZINE TAB [Apresoline Tab] 50 mg PO TID Carvedilol [Coreg] 25 mg PO BID Aspirin [Ecotrin] 81 mg PO DAILY Changed Insulin Aspart [NovoLOG FlexPen] 10 unit SUBCUT TID W/MEALS #0 vial Insulin Detemir [Levemir FlexPen] 30 unit SUBCUT BEDTIME #0 vial Discontinued predniSONE TAB [PredniSONE] 20 mg PO DAILY Indomethacin [Indomethacin Cap] 25 mg PO TID PRN PRN Reason: Pain - Follow Up or Referral Follow Up: Armin Goss Jr., MD [Physician] - (CALL OFFICE ON MONDAY TO SCHEDULE AN APOINTMENT FOR MONDAY OR MONDAY) Lian Meyers MD [Physician] - 2 Weeks - Forms/Instructions Exam - Constitutional Vitals: Period Temp Pulse Resp BP Sys/Jo Pulse Ox Last 24 Hr 96.7 F-99 F 56-69 14-20 106-156/67-74 97-99 General appearance: normal weight, no acute distress - Head Head exam: Present: normal inspection, normocephalic, atraumatic - Eye Eye exam: Present: EOMI Pupils: Present: YOLANDA - ENT ENT exam: Present: normal exam - Neck Neck exam: Present: normal inspection - Respiratory Respiratory exam: Present: clear to auscultation bilaterally. Absent: accessory muscle use, prolonged expiratory phase, wheezes - Cardiovascular Cardiovascular exam: Present: regular rate and rhythm. Absent: bradycardia, irregular rhythm, systolic murmur - GI/Abdominal GI/Abdominal exam: Present: normal bowel sounds. Absent: ascites, distended, hypoactive bowel sounds, tenderness - Extremities Exam Extremities exam: Present: normal inspection, other (Left arm with an surgical dressing) Discharge Results Labs on day of discharge: Labs from last 24 hours 03/05/17 03/04/17 03/04/17 07:54 20:06 16:23 POC Glucose 96 300 H 163 H 03/04/17 03/04/17 03/04/17 12:57 12:22 12:19 POC Glucose 100 35 L* 37 L* 03/04/17 09:11 POC Glucose 153 H DS: Provider Date of admission: 02/11/17 23:26 Primary care physician: Angelia Jaffe MD Attending physician on admission: Marty Rizzo MD Consults: 02/11/17 23:26 Consult to Physician [CONS] Routine Comment: ERSD Consulting Provider: Real Lilly Consulting Provider Notified: No When should Consulting Provider be notified: In am 02/11/17 23:35 Consult to W[facility] Care - [place] [CONS] Routine Reason for Wound Care: Wound Care Management 02/12/17 10:03 Consult to Pharmacy [CONS] Routine Reason for Pharmacy Consult: Dose/Manage Vancomycin 02/12/17 11:15 Consult to Physician [CONS] Routine Comment: left arm cellulitis, sepsis Consulting Provider: Lian Meyers Consult to Specialist Group: Infectious Disease When should Consulting Provider be notified: In am Person Notified: MELI Date Notified: 02/14/17 Time Notified: 08:36 02/14/17 08:02 Consult to Physician [CONS] Routine Comment: Consulting Provider: Clement Phipps III. Person Notified: BIPIN 02/14/17 02/14/17 08:31 Consult to Physician [CONS] Routine Comment: Consulting Provider: Festus Gil Jr. Person Notified: BLANCA Date Notified: 02/14/17 Time Notified: 08:33 02/14/17 08:40 Consult to Wound Care - [place] [CONS] Routine Reason for Wound Care: Wound Care Management 02/20/17 19:39 Consult to Occupational Therapy [CONS] Routine Reason for Occupational Therapy: Evaluate and Treat Splint Consult Comment: a,aa,prom left hand. make splint Discharging clinician: Eri Dunham MD Expected date of discharge: 03/05/17
[2017-03-05] MEDS: SODIUM HYPOCHLORITE 0.25% IRRIG 473 ML BOTTLE TOP SCH (14:48)
[2017-03-05] MEDS: COLLAGENASE OINT 30 GM TUBE TOP SCH ×2 (14:48)
[2017-03-05 16:42] VITALS: BP 160/71
== END 2017-03-05 16:30 | disposition home health service (06) | DRG 500 ==
LOC: N.ED 20:36 → N.EDINP 23:26 → SUATTDRO 23:26 → N.2E 02-12 00:34 → N.3E 02-24 12:54
PROVIDERS: ADMIT Internal Medicine; ATTEND Internal Medicine

== ENCOUNTER 2018-08-13 11:23 | Inpatient (IN) ==
[2018-08-13] MEDS ORDERED: DOCUSATE SODIUM 100 MG CAPSULE PO PRN (14:24)
[2018-08-13] MEDS ORDERED: MORPHINE 4 MG/1 ML VIAL IV PRN (14:24)
[2018-08-13] MEDS ORDERED: ZALEPLON 5 MG CAPSULE PO PRN (14:24)
[2018-08-13] MEDS ORDERED: ACETAMINOPHEN 325 MG TABLET PO PRN (14:24)
[2018-08-13] MEDS ORDERED: ENOXAPARIN 30 MG/0.3 ML SYRINGE SUBCUT SCH (14:30)
[2018-08-13] MEDS ORDERED: SODIUM HYPOCHLORITE 0.25% IRRIG 473 ML BOTTLE TOP PRN (14:36)
[2018-08-13] MEDS ORDERED: GLUCAGON 1 MG VIAL IM PRN ×2 (14:41→16:05)
[2018-08-13] MEDS ORDERED: DEXTROSE 50% 25 GM/50 ML VIAL IV PRN ×2 (14:41→16:05)
[2018-08-13 16:12] LABS: Basophils % 0.2 % (0.0-0.8); Eosinophils # 0.3 10*3/uL (0.0-0.87); Eosinophils % 2.4 % (0.00-10.9); Hematocrit 29.3 VOL% (42.0-52.0); Hemoglobin 9.6 GM/DL (14.0-18.0); Immature Granulocytes % 0.6 %; Immature Granulocytes Absolute 0.06 #; Lymphocytes # 0.7 10*3/uL (1.4-4.0); Mean Corpuscular HGB Conc 32.8 GM/DL (32-36); Mean Corpuscular Hemoglobin 32 PG (27-34); Mean Corpuscular Volume 96.1 FL (87-102); Mean Platelet Volume 10.5 FL (9.6-12.0); Monocytes # 0.7 10*3/uL (0.11-0.8); Monocytes % 6.5 % (1.7-12.7); Neutrophils # 8.9 10*3/uL (1.4-7.4); Neutrophils % 83.3 % (38.7-73.9); Platelet Count 117 T/CUMM (130-400); Red Blood Count 3.05 MC/CUMM (3.8-5.5); Red Cell Distribution Width 17.2 % (9.3-17.3); White Blood Count 10.6 T/CUMM (4-12)
[2018-08-13 16:41] LABS: Calcium 7.5 MG/DL (8.5-10.1); Osmolality,Calculated 293.2 MOS/KG (273-304); Potassium 4.3 MMOL/L (3.5-5.1)
[2018-08-13 16:46] LABS: Albumin 3.3 G/DL (3.4-5.0); Bilirubin,Direct 0.26 MG/DL (0.0-0.20); Bilirubin,Indirect 0.3 MG/DL (0.0-1.0); Bilirubin,Total 0.6 MG/DL (0.2-1.0); Total Protein 8.1 G/DL (6.4-8.3)
[2018-08-13] MEDS: INSULIN LISPRO 100 UNIT/ML SUBCUT SCH ×2 (17:57→21:14)
[2018-08-13] MEDS: CARVEDILOL 25 MG TABLET PO SCH (21:13)
[2018-08-14 05:16] LABS: Basophils % 0.3 % (0.0-0.8); Eosinophils # 0.5 10*3/uL (0.0-0.87); Eosinophils % 5.8 % (0.00-10.9); Hematocrit 29.9 VOL% (42.0-52.0); Hemoglobin 9.7 GM/DL (14.0-18.0); Immature Granulocytes % 0.3 %; Immature Granulocytes Absolute 0.03 #; Lymphocytes % 10.3 % (21.2-54.2); Mean Corpuscular HGB Conc 32.4 GM/DL (32-36); Mean Corpuscular Hemoglobin 32 PG (27-34); Mean Corpuscular Volume 97.1 FL (87-102); Mean Platelet Volume 10.4 FL (9.6-12.0); Monocytes # 0.6 10*3/uL (0.11-0.8); Monocytes % 6.7 % (1.7-12.7); Neutrophils # 7.1 10*3/uL (1.4-7.4); Neutrophils % 76.6 % (38.7-73.9); Platelet Count 109 T/CUMM (130-400); Red Blood Count 3.08 MC/CUMM (3.8-5.5); Red Cell Distribution Width 17.3 % (9.3-17.3); White Blood Count 9.2 T/CUMM (4-12)
[2018-08-14 05:28] LABS: Calcium 7.6 MG/DL (8.5-10.1); Potassium 4.6 MMOL/L (3.5-5.1)
[2018-08-14 05:29] LABS: Calcium 7.7 MG/DL (8.5-10.1); Potassium 4.6 MMOL/L (3.5-5.1)
[2018-08-14] MEDS: INSULIN LISPRO 100 UNIT/ML SUBCUT SCH ×4 (07:25→21:19)
[2018-08-14] MEDS: PANTOPRAZOLE 40 MG TABLET PO SCH (09:00)
[2018-08-14] MEDS: ASPIRIN EC 81 MG TABLET PO SCH (09:00)
[2018-08-14] MEDS: CARVEDILOL 25 MG TABLET PO SCH ×2 (09:00→21:18)
[2018-08-14] MEDS ORDERED: SODIUM CHLORIDE 0.65% NASAL SPRAY 45 ML BOTTLE BOTH NARES PRN (11:32)
[2018-08-14] MEDS: amLODIPine 5 MG TABLET PO SCH (14:18)
[2018-08-14] MEDS ORDERED: ceFAZolin 2,000 MG in PREMIX 1 EACH IV ONE (15:23)
[2018-08-14] MEDS ORDERED: MAGNESIUM HYDROXIDE SUSP 30 ML UDCUP PO PRN (15:25)
[2018-08-14] MEDS ORDERED: diphenhydrAMINE CAP 25 MG CAPSULE PO PRN (15:25)
[2018-08-14] MEDS ORDERED: MORPHINE 4 MG/1 ML VIAL IV PRN ×2 (15:25)
[2018-08-14] MEDS ORDERED: GENTAMICIN INJ 120 MG in PREMIX 1 EACH IV ONE (15:30)
[2018-08-14] MEDS ORDERED: GENTAMICIN 80 MG/2 ML VIAL ONE ×2 (15:43→15:44)
[2018-08-14] MEDS ORDERED: ceFAZolin 1,000 MG VIAL ONE (15:43)
[2018-08-14] MEDS ORDERED: BACITRACIN OINT 0.9 GM PACK TOP ONE (16:26)
[2018-08-14] MEDS ORDERED: PROPOFOL 200 MG/20 ML VIAL IV ONE (17:02)
[2018-08-14] MEDS ORDERED: ePHEDrine 50 MG/ML AMP ONE (17:03)
[2018-08-14] MEDS ORDERED: MIDAZOLAM 2 MG/2 ML VIAL ONE (17:03)
[2018-08-14] MEDS ORDERED: CALCIUM CHLORIDE 1,000 MG/10 ML VIAL IV ONE (17:03)
[2018-08-14] MEDS ORDERED: fentaNYL 100 MCG/2 ML VIAL ONE (17:03)
[2018-08-14] MEDS ORDERED: DESFLURANE 1 UNIT/15 MINUTE INH ONE (17:03)
[2018-08-14] MEDS ORDERED: NEOSTIGMINE 10 MG/10 ML VIAL ONE (17:04)
[2018-08-14] MEDS ORDERED: ONDANSETRON 4 MG/2 ML VIAL ONE (17:04)
[2018-08-14] MEDS ORDERED: ROCURONIUM 100 MG/10 ML VIAL IV ONE (17:04)
[2018-08-14] MEDS ORDERED: PHENYLEPHRINE 1 MG/10 ML SYRINGE IV ONE (17:04)
[2018-08-14] MEDS ORDERED: GLYCOPYRROLATE 0.4 MG/2 ML VIAL ONE (17:04)
[2018-08-14] MEDS: SODIUM CHLORIDE 0.9% 1,000 ML IV SCH (19:15)
[2018-08-14] MEDS ORDERED: ceFAZolin 2,000 MG in PREMIX 1 EACH IV SCH (19:26)
[2018-08-15] MEDS: SODIUM CHLORIDE 0.9% 1,000 ML IV SCH ×2 (01:44→03:43)
[2018-08-15 05:22] LABS: Basophils # 0.1 10*3/uL (0.0-0.2); Basophils % 0.6 % (0.0-0.8); Eosinophils # 0.7 10*3/uL (0.0-0.87); Hemoglobin 8.5 GM/DL (14.0-18.0); Immature Granulocytes % 0.4 %; Immature Granulocytes Absolute 0.04 #; Lymphocytes # 0.8 10*3/uL (1.4-4.0); Lymphocytes % 8.4 % (21.2-54.2); Mean Corpuscular HGB Conc 30.4 GM/DL (32-36); Mean Corpuscular Hemoglobin 30 PG (27-34); Mean Corpuscular Volume 98.6 FL (87-102); Mean Platelet Volume 10.9 FL (9.6-12.0); Monocytes # 0.8 10*3/uL (0.11-0.8); Monocytes % 8.8 % (1.7-12.7); Neutrophils # 7.1 10*3/uL (1.4-7.4); Neutrophils % 74.8 % (38.7-73.9); Platelet Count 104 T/CUMM (130-400); Red Blood Count 2.84 MC/CUMM (3.8-5.5); White Blood Count 9.6 T/CUMM (4-12)
[2018-08-15 05:34] LABS: Calcium 7.9 MG/DL (8.5-10.1); Osmolality,Calculated 285.7 MOS/KG (273-304); Potassium 4.8 MMOL/L (3.5-5.1)
[2018-08-15 05:35] LABS: Calcium 7.9 MG/DL (8.5-10.1); Potassium 4.8 MMOL/L (3.5-5.1)
[2018-08-15 05:38] LABS: Albumin 2.9 G/DL (3.4-5.0); Bilirubin,Direct 0.23 MG/DL (0.0-0.20); Bilirubin,Indirect 0.4 MG/DL (0.0-1.0); Bilirubin,Total 0.6 MG/DL (0.2-1.0); Total Protein 7.1 G/DL (6.4-8.3)
[2018-08-15] MEDS: INSULIN LISPRO 100 UNIT/ML SUBCUT SCH ×4 (08:26→21:23)
[2018-08-15] MEDS: ASPIRIN EC 81 MG TABLET PO SCH (08:53)
[2018-08-15] MEDS: HEPARIN 5,000 UNIT/1 ML VIAL SUBCUT SCH ×2 (08:53→18:05)
[2018-08-15] MEDS: CARVEDILOL 25 MG TABLET PO SCH ×2 (08:54→22:35)
[2018-08-15] MEDS: PANTOPRAZOLE 40 MG TABLET PO SCH (08:54)
[2018-08-15] MEDS: amLODIPine 5 MG TABLET PO SCH (08:54)
[2018-08-15] MEDS: ONDANSETRON 4 MG/2 ML VIAL IV PRN (08:54)
[2018-08-15] MEDS: SEVELAMER CARBONATE 800 MG TABLET PO SCH (18:04)
[2018-08-16] MEDS: HEPARIN 5,000 UNIT/1 ML VIAL SUBCUT SCH ×3 (00:34→17:43)
[2018-08-16 05:45] LABS: Basophils % 0.3 % (0.0-0.8); Eosinophils # 0.4 10*3/uL (0.0-0.87); Hemoglobin 8.2 GM/DL (14.0-18.0); Immature Granulocytes % 0.5 %; Immature Granulocytes Absolute 0.04 #; Lymphocytes % 11.1 % (21.2-54.2); Mean Corpuscular HGB Conc 31.5 GM/DL (32-36); Mean Corpuscular Hemoglobin 31 PG (27-34); Mean Corpuscular Volume 98.5 FL (87-102); Monocytes # 1.1 10*3/uL (0.11-0.8); Monocytes % 12.5 % (1.7-12.7); Neutrophils # 6.2 10*3/uL (1.4-7.4); Neutrophils % 70.6 % (38.7-73.9); Platelet Count 123 T/CUMM (130-400); Red Blood Count 2.64 MC/CUMM (3.8-5.5); Red Cell Distribution Width 16.7 % (9.3-17.3); White Blood Count 8.7 T/CUMM (4-12)
[2018-08-16 06:27] LABS: Calcium 8.1 MG/DL (8.5-10.1); Potassium 4.1 MMOL/L (3.5-5.1)
[2018-08-16 06:31] LABS: Risk Ratio 2.39
[2018-08-16 07:48] LABS: Band Neutrophils 3 % (0-10); Eosinophils 3 % (0-10); Lymphocytes 10 % (20-55); Platelet Estimate Adequate; Segmented Neutrophils 73 % (50-85); Total Cells Counted 100
[2018-08-16 07:49] LABS: Anisocytosis 1+
[2018-08-16] MEDS: ONDANSETRON 4 MG/2 ML VIAL IV PRN (08:16)
[2018-08-16] MEDS: INSULIN LISPRO 100 UNIT/ML SUBCUT SCH ×4 (08:16→21:34)
[2018-08-16] MEDS: PANTOPRAZOLE 40 MG TABLET PO SCH (10:06)
[2018-08-16] MEDS: CARVEDILOL 25 MG TABLET PO SCH ×2 (10:06→21:35)
[2018-08-16] MEDS: amLODIPine 5 MG TABLET PO SCH (10:06)
[2018-08-16] MEDS: SEVELAMER CARBONATE 800 MG TABLET PO SCH ×3 (10:07→17:43)
[2018-08-16] MEDS: ASPIRIN EC 81 MG TABLET PO SCH (10:07)
[2018-08-16] MEDS ORDERED: ONDANSETRON 4 MG TABLET PO PRN (12:48)
[2018-08-16] MEDS: hydrALAZINE 25 MG TABLET PO SCH ×2 (17:43→21:35)
[2018-08-16] MEDS ORDERED: INSULIN GLARGINE 100 UNIT/ML SUBCUT SCH (21:00)
[2018-08-17] MEDS: HEPARIN 5,000 UNIT/1 ML VIAL SUBCUT SCH ×2 (00:26→08:56)
[2018-08-17] MEDS: INSULIN LISPRO 100 UNIT/ML SUBCUT SCH ×2 (05:05→11:33)
[2018-08-17 07:47] VITALS: BP 132/55
[2018-08-17] MEDS: SEVELAMER CARBONATE 800 MG TABLET PO SCH ×2 (08:00→12:00)
[2018-08-17] MEDS: hydrALAZINE 25 MG TABLET PO SCH ×2 (08:55→15:18)
[2018-08-17] MEDS: ASPIRIN EC 81 MG TABLET PO SCH (08:55)
[2018-08-17] MEDS: CARVEDILOL 25 MG TABLET PO SCH (08:56)
[2018-08-17] MEDS: amLODIPine 5 MG TABLET PO SCH (08:56)
[2018-08-17] MEDS: PANTOPRAZOLE 40 MG TABLET PO SCH (08:56)
[2018-08-17] MEDS ORDERED: SKIN HEALING OINT (AQUAPHOR) 50 GM TUBE TOP PRN (10:19)
== END 2018-08-17 15:18 | disposition swing bed (61) | DRG 480 ==
LOC: SUATTDRO 13:30 → N.3E 13:30
PROVIDERS: ADMIT Internal Medicine; ATTEND Internal Medicine

== ENCOUNTER 2020-01-10 20:18 | Inpatient (IN) ==
[2020-01-11] MEDS ORDERED: GLUCAGON 1 MG VIAL IM PRN ×2 (00:48)
[2020-01-11] MEDS ORDERED: ZALEPLON 5 MG CAPSULE PO PRN (00:48)
[2020-01-11] MEDS ORDERED: DEXTROSE 50% 25 GM/50 ML SYRINGE IV PRN (00:48)
[2020-01-11] MEDS ORDERED: ONDANSETRON 4 MG/2 ML VIAL IV PRN (00:48)
[2020-01-11] MEDS ORDERED: LACTULOSE 20 GM/30 ML UDCUP PO PRN (00:48)
[2020-01-11] MEDS ORDERED: DEXTROSE 50% 25 GM/50 ML VIAL IV PRN (00:48)
[2020-01-11] MEDS ORDERED: SODIUM HYPOCHLORITE 0.25% IRRIG 473 ML BOTTLE TOP PRN (01:05)
[2020-01-11] MEDS ORDERED: DOCUSATE SODIUM 100 MG CAPSULE PO PRN (01:05)
[2020-01-11] MEDS ORDERED: SODIUM CHLORIDE 0.65% NASAL SPRAY 45 ML BOTTLE BOTH NARES PRN (01:05)
[2020-01-11] MEDS ORDERED: MAGNESIUM HYDROXIDE SUSP 30 ML UDCUP PO PRN (01:05)
[2020-01-11] MEDS ORDERED: diphenhydrAMINE CAP 25 MG CAPSULE PO PRN (01:05)
[2020-01-11] MEDS: AZITHROMYCIN 250 MG TABLET PO SCH (01:40)
[2020-01-11 05:40] LABS: Basophils % 0.6 % (0.0-0.8); Eosinophils % 0.4 % (0.00-10.9); Hematocrit 27.4 VOL% (42.0-52.0); Hemoglobin 8.9 GM/DL (14.0-18.0); Immature Granulocytes % 0.2 %; Immature Granulocytes Absolute 0.01 #; Lymphocytes # 0.9 10*3/uL (1.4-4.0); Lymphocytes % 17.6 % (21.2-54.2); Mean Corpuscular HGB Conc 32.5 GM/DL (32-36); Mean Corpuscular Volume 98.9 FL (87-102); Mean Platelet Volume 11.1 FL (9.6-12.0); Monocytes % 9.7 % (1.7-12.7); Neutrophils % 71.5 % (38.7-73.9); Platelet Count 103 T/CUMM (130-400); Red Blood Count 2.77 MC/CUMM (3.8-5.5); Red Cell Distribution Width 16.1 % (9.3-17.3); White Blood Count 5.2 T/CUMM (4-12)
[2020-01-11 06:06] LABS: Albumin 3.2 G/DL (3.4-5.0); Osmolality,Calculated 286.9 MOS/KG (273-304); Total Protein 7.4 G/DL (6.4-8.3)
[2020-01-11] MEDS: PANTOPRAZOLE 40 MG TABLET PO SCH (08:49)
[2020-01-11] MEDS: carvediloL 25 MG TABLET PO SCH ×2 (08:49→18:16)
[2020-01-11] MEDS: amLODIPine 5 MG TABLET PO SCH (08:49)
[2020-01-11] MEDS: ASPIRIN EC 81 MG TABLET PO SCH (08:49)
[2020-01-11] MEDS: SEVELAMER CARBONATE 800 MG TABLET PO SCH ×3 (08:49→18:15)
[2020-01-11] MEDS: INSULIN REGULAR 100 UNIT/ML SUBCUT SCH ×4 (08:50→21:09)
[2020-01-11] MEDS ORDERED: ZINC SULFATE 220 MG CAPSULE PO SCH (09:00)
[2020-01-11] MEDS: ACETAMINOPHEN 325 MG TABLET PO PRN (21:34)
[2020-01-11] MEDS: cefTRIAXone 1,000 MG in SYRINGE 1 EACH IV SCH (23:54)
[2020-01-12] MEDS: AZITHROMYCIN 250 MG TABLET PO SCH (09:31)
[2020-01-12] MEDS: amLODIPine 5 MG TABLET PO SCH (09:31)
[2020-01-12] MEDS: ASPIRIN EC 81 MG TABLET PO SCH (09:31)
[2020-01-12] MEDS: carvediloL 25 MG TABLET PO SCH ×2 (09:31→17:58)
[2020-01-12] MEDS: PANTOPRAZOLE 40 MG TABLET PO SCH (09:31)
[2020-01-12] MEDS: SEVELAMER CARBONATE 800 MG TABLET PO SCH ×3 (09:31→17:58)
[2020-01-12] MEDS: INSULIN REGULAR 100 UNIT/ML SUBCUT SCH ×4 (10:21→21:37)
[2020-01-12] MEDS: ACETAMINOPHEN 325 MG TABLET PO PRN (21:37)
[2020-01-13] MEDS: cefTRIAXone 1,000 MG in SYRINGE 1 EACH IV SCH ×2 (00:33→21:05)
[2020-01-13 03:40] LABS: Basophils % 0.5 % (0.0-0.8); Eosinophils % 0.2 % (0.00-10.9); Hematocrit 25.4 VOL% (42.0-52.0); Hemoglobin 8.6 GM/DL (14.0-18.0); Immature Granulocytes % 0.2 %; Immature Granulocytes Absolute 0.01 #; Lymphocytes # 0.7 10*3/uL (1.4-4.0); Lymphocytes % 16.4 % (21.2-54.2); Mean Corpuscular HGB Conc 33.9 GM/DL (32-36); Mean Corpuscular Volume 95.5 FL (87-102); Mean Platelet Volume 11.5 FL (9.6-12.0); Monocytes % 9.4 % (1.7-12.7); Neutrophils % 73.3 % (38.7-73.9); Platelet Count 85 T/CUMM (130-400); Red Blood Count 2.66 MC/CUMM (3.8-5.5); Red Cell Distribution Width 15.7 % (9.3-17.3); White Blood Count 4.3 T/CUMM (4-12)
[2020-01-13 04:05] LABS: Calcium 7.2 MG/DL (8.5-10.1); Osmolality,Calculated 277.2 MOS/KG (273-304)
[2020-01-13] MEDS: INSULIN REGULAR 100 UNIT/ML SUBCUT SCH ×3 (09:07→20:12)
[2020-01-13] MEDS: PANTOPRAZOLE 40 MG TABLET PO SCH (09:51)
[2020-01-13] MEDS: carvediloL 25 MG TABLET PO SCH ×2 (09:51→20:12)
[2020-01-13] MEDS: AZITHROMYCIN 250 MG TABLET PO SCH (09:51)
[2020-01-13] MEDS: ASPIRIN EC 81 MG TABLET PO SCH (09:52)
[2020-01-13] MEDS: amLODIPine 5 MG TABLET PO SCH (09:52)
[2020-01-13] MEDS: SEVELAMER CARBONATE 800 MG TABLET PO SCH ×3 (09:52→20:13)
[2020-01-14] MEDS: INSULIN REGULAR 100 UNIT/ML SUBCUT SCH ×5 (00:49→22:15)
[2020-01-14] MEDS: ACETAMINOPHEN 325 MG TABLET PO PRN (01:15)
[2020-01-14 04:34] LABS: Osmolality,Calculated 289.1 MOS/KG (273-304)
[2020-01-14] MEDS ORDERED: hydrALAZINE 25 MG TABLET ONE (07:25)
[2020-01-14] MEDS: carvediloL 25 MG TABLET PO SCH (08:42)
[2020-01-14] MEDS: ASPIRIN EC 81 MG TABLET PO SCH (08:42)
[2020-01-14] MEDS: SEVELAMER CARBONATE 800 MG TABLET PO SCH ×3 (08:42→17:38)
[2020-01-14] MEDS: AZITHROMYCIN 250 MG TABLET PO SCH (08:42)
[2020-01-14] MEDS: amLODIPine 5 MG TABLET PO SCH (08:43)
[2020-01-14] MEDS: PANTOPRAZOLE 40 MG TABLET PO SCH (08:43)
[2020-01-14 09:11] LABS: Bilirubin,Total 0.6 MG/DL (0.2-1.0); Calcium 7.1 MG/DL (8.5-10.1); Osmolality,Calculated 290.9 MOS/KG (273-304); Total Protein 7.8 G/DL (6.4-8.3)
[2020-01-14 10:51] LABS: Basophils % 0.4 % (0.0-0.8); Hematocrit 25.9 VOL% (42.0-52.0); Hemoglobin 8.6 GM/DL (14.0-18.0); Immature Granulocytes % 0.5 %; Immature Granulocytes Absolute 0.03 #; Lymphocytes # 0.8 10*3/uL (1.4-4.0); Lymphocytes % 13.3 % (21.2-54.2); Mean Corpuscular HGB Conc 33.2 GM/DL (32-36); Mean Corpuscular Volume 99.2 FL (87-102); Mean Platelet Volume 11.5 FL (9.6-12.0); Monocytes % 5.1 % (1.7-12.7); Neutrophils % 80.7 % (38.7-73.9); Red Blood Count 2.61 MC/CUMM (3.8-5.5); Red Cell Distribution Width 15.8 % (9.3-17.3); White Blood Count 5.6 T/CUMM (4-12)
[2020-01-14 10:53] LABS: Platelet Count 91 T/CUMM (130-400)
[2020-01-14 11:07] LABS: Hypochromasia 1+; Platelet Estimate Decreased
[2020-01-14 11:08] LABS: Microcytosis Slight
[2020-01-14 11:55] LABS: Sedimentation Rate-Westergren 115 MM/HR (0-20)
[2020-01-14] MEDS ORDERED: ASPIRIN 325 MG TABLET ONE (12:19)
[2020-01-14 12:37] LABS: ABG Base Excess -6.1 MMOL/L (-2.5-2.5); ABG HCO3 19.2 MMOL/L (20-26); ABG Oxygen Saturation 29.3 % (95-100); ABG PCO2 36.7 MM HG (35-48); ABG PH 7.336 (7.35-7.45); ABG TCO2 20.3 MMOL/L (23-27)
[2020-01-14 12:39] LABS: ABG PO2 23.8 MM HG (80-95)
[2020-01-14] MEDS ORDERED: NITROGLYCERIN SL 0.4 MG TABLET SL PRN (12:52)
[2020-01-14] MEDS ORDERED: MORPHINE 4 MG/1 ML VIAL IV PRN (12:52)
[2020-01-14 17:37] LABS: CKMB % 1.5 %; Troponin I 0.143 NG/ML (0.00-0.045)
[2020-01-14] MEDS: carvediloL 12.5 MG TABLET PO SCH (17:38)
[2020-01-14] MEDS: cefTRIAXone 1,000 MG in SYRINGE 1 EACH IV SCH (22:15)
[2020-01-14] MEDS: ROSUVASTATIN 10 MG TABLET PO SCH (22:15)
[2020-01-14 23:28] LABS: CKMB % 1.1 %
[2020-01-14 23:31] LABS: Troponin I 0.152 NG/ML (0.00-0.045)
[2020-01-15 06:14] LABS: Basophils % 0.6 % (0.0-0.8); Hematocrit 26.4 VOL% (42.0-52.0); Hemoglobin 8.6 GM/DL (14.0-18.0); Immature Granulocytes % 0.6 %; Immature Granulocytes Absolute 0.03 #; Lymphocytes # 0.7 10*3/uL (1.4-4.0); Lymphocytes % 14.2 % (21.2-54.2); Mean Corpuscular HGB Conc 32.6 GM/DL (32-36); Mean Corpuscular Volume 100.4 FL (87-102); Mean Platelet Volume 11.2 FL (9.6-12.0); Monocytes % 3.4 % (1.7-12.7); Neutrophils % 81.2 % (38.7-73.9); Platelet Count 100 T/CUMM (130-400); Red Blood Count 2.63 MC/CUMM (3.8-5.5); Red Cell Distribution Width 15.7 % (9.3-17.3); White Blood Count 4.7 T/CUMM (4-12)
[2020-01-15 06:34] LABS: Troponin I 0.165 NG/ML (0.00-0.045)
[2020-01-15 06:42] LABS: Hypochromasia 2+; Lymphocytes 12 % (20-55); Microcytosis Slight; Platelet Estimate Decreased; Segmented Neutrophils 86 % (50-85); Total Cells Counted 100
[2020-01-15 08:54] LABS: Albumin 2.6 G/DL (3.4-5.0); Bilirubin,Total 0.6 MG/DL (0.2-1.0); Calcium 7.6 MG/DL (8.5-10.1); Osmolality,Calculated 281.5 MOS/KG (273-304); Total Protein 7.7 G/DL (6.4-8.3)
[2020-01-15] MEDS: SEVELAMER CARBONATE 800 MG TABLET PO SCH ×3 (09:50→16:11)
[2020-01-15] MEDS: PANTOPRAZOLE 40 MG TABLET PO SCH (09:50)
[2020-01-15] MEDS: carvediloL 12.5 MG TABLET PO SCH ×2 (09:50→16:11)
[2020-01-15] MEDS: ASPIRIN EC 81 MG TABLET PO SCH (09:50)
[2020-01-15] MEDS: amLODIPine 5 MG TABLET PO SCH (09:50)
[2020-01-15] MEDS: AZITHROMYCIN 250 MG TABLET PO SCH (09:50)
[2020-01-15] MEDS: INSULIN REGULAR 100 UNIT/ML SUBCUT SCH ×4 (09:50→21:01)
[2020-01-15 10:51] LABS: Albumin 2.6 G/DL (3.4-5.0); Bilirubin,Total 0.6 MG/DL (0.2-1.0); Calcium 7.4 MG/DL (8.5-10.1); Osmolality,Calculated 282.5 MOS/KG (273-304); Total Protein 7.8 G/DL (6.4-8.3)
[2020-01-15] MEDS: cefTRIAXone 1,000 MG in SYRINGE 1 EACH IV SCH (21:20)
[2020-01-15] MEDS: ROSUVASTATIN 10 MG TABLET PO SCH (21:50)
[2020-01-16] MEDS: ACETAMINOPHEN 325 MG TABLET PO PRN ×2 (00:54→20:00)
[2020-01-16 05:38] LABS: Basophils % 0.4 % (0.0-0.8); Eosinophils % 0.8 % (0.00-10.9); Hematocrit 25.4 VOL% (42.0-52.0); Hemoglobin 8.4 GM/DL (14.0-18.0); Immature Granulocytes % 0.6 %; Immature Granulocytes Absolute 0.03 #; Lymphocytes # 0.4 10*3/uL (1.4-4.0); Mean Corpuscular HGB Conc 33.1 GM/DL (32-36); Mean Corpuscular Volume 98.1 FL (87-102); Mean Platelet Volume 11.4 FL (9.6-12.0); Monocytes % 2.9 % (1.7-12.7); Neutrophils % 87.3 % (38.7-73.9); Platelet Count 89 T/CUMM (130-400); Red Blood Count 2.59 MC/CUMM (3.8-5.5); Red Cell Distribution Width 15.9 % (9.3-17.3); White Blood Count 5.1 T/CUMM (4-12)
[2020-01-16 06:00] LABS: Band Neutrophils 3 % (0-10); Hypochromasia 1+; Lymphocytes 3 % (20-55); Microcytosis Slight; Ovalocytes Slight; Platelet Estimate Decreased; Segmented Neutrophils 92 % (50-85); Total Cells Counted 100
[2020-01-16 06:21] LABS: Calcium 7.3 MG/DL (8.5-10.1); Ferritin 11120.6 ng/ml (26-388); Osmolality,Calculated 283.5 MOS/KG (273-304)
[2020-01-16] MEDS: ASPIRIN EC 81 MG TABLET PO SCH (08:22)
[2020-01-16] MEDS: SEVELAMER CARBONATE 800 MG TABLET PO SCH ×3 (08:22→16:05)
[2020-01-16] MEDS: PANTOPRAZOLE 40 MG TABLET PO SCH (08:22)
[2020-01-16] MEDS: carvediloL 12.5 MG TABLET PO SCH ×2 (08:22→16:05)
[2020-01-16] MEDS: amLODIPine 5 MG TABLET PO SCH (08:22)
[2020-01-16] MEDS: INSULIN REGULAR 100 UNIT/ML SUBCUT SCH ×4 (09:19→20:00)
[2020-01-16 16:38] LABS: ABG Base Excess -0.5 MMOL/L (-2.5-2.5); ABG HCO3 23.8 MMOL/L (20-26); ABG Oxygen Saturation 87.4 % (95-100); ABG PCO2 36.8 MM HG (35-48); ABG PH 7.417 (7.35-7.45); ABG PO2 56.5 MM HG (80-95); ABG TCO2 21.8 MMOL/L (23-27); Allen Test Positive; Pt O2 Delivery Device Other
[2020-01-16] MEDS: cefTRIAXone 1,000 MG in SYRINGE 1 EACH IV SCH (20:00)
[2020-01-16] MEDS: ROSUVASTATIN 10 MG TABLET PO SCH (20:00)
[2020-01-17 04:36] LABS: ABG HCO3 21.7 MMOL/L (20-26); ABG PCO2 37.3 MM HG (35-48); ABG PH 7.382 (7.35-7.45); ABG PO2 48.3 MM HG (80-95); ABG TCO2 22.8 MMOL/L (23-27); Allen Test Positive; Pt O2 Delivery Device Other
[2020-01-17 05:32] LABS: Basophils % 0.3 % (0.0-0.8); Eosinophils % 0.5 % (0.00-10.9); Hematocrit 27.1 VOL% (42.0-52.0); Hemoglobin 8.7 GM/DL (14.0-18.0); Immature Granulocytes % 0.5 %; Immature Granulocytes Absolute 0.03 #; Lymphocytes # 0.4 10*3/uL (1.4-4.0); Lymphocytes % 6.1 % (21.2-54.2); Mean Corpuscular HGB Conc 32.1 GM/DL (32-36); Mean Corpuscular Volume 100.7 FL (87-102); Mean Platelet Volume 11.7 FL (9.6-12.0); Monocytes % 2.8 % (1.7-12.7); Neutrophils % 89.8 % (38.7-73.9); Platelet Count 103 T/CUMM (130-400); Red Blood Count 2.69 MC/CUMM (3.8-5.5); Red Cell Distribution Width 15.6 % (9.3-17.3); White Blood Count 6.4 T/CUMM (4-12)
[2020-01-17 05:46] LABS: Calcium 8.1 MG/DL (8.5-10.1); Osmolality,Calculated 277.5 MOS/KG (273-304)
[2020-01-17 06:01] LABS: Hypochromasia 1+; Microcytosis Slight
[2020-01-17 06:02] LABS: Platelet Estimate Decreased
[2020-01-17] MEDS ORDERED: ROCURONIUM 100 MG/10 ML VIAL IV ONE ×2 (07:28→07:56)
[2020-01-17] MEDS ORDERED: ETOMIDATE 20 MG/10 ML VIAL IV ONE ×2 (07:28→07:56)
[2020-01-17] MEDS ORDERED: LACTATED RINGERS 500 ML IV ONE (07:44)
[2020-01-17 08:55] LABS: ABG Base Excess -5.5 MMOL/L (-2.5-2.5); ABG HCO3 19.9 MMOL/L (20-26); ABG Oxygen Saturation 99.3 % (95-100); ABG PH 7.216 (7.35-7.45); ABG TCO2 21.4 MMOL/L (23-27); Pt O2 Delivery Device Ventilator
[2020-01-17] MEDS: OMEPRAZOLE ODT 20 MG TABLET PER TUBE SCH (09:40)
[2020-01-17] MEDS: ASPIRIN CHEW 81 MG TABLET PO SCH (09:40)
[2020-01-17] MEDS: carvediloL 12.5 MG TABLET PO SCH ×3 (09:45→18:06)
[2020-01-17] MEDS: INSULIN REGULAR 100 UNIT/ML SUBCUT SCH ×5 (09:45→23:50)
[2020-01-17] MEDS: SEVELAMER CARBONATE 800 MG TABLET PO SCH ×3 (09:45→18:06)
[2020-01-17] MEDS: amLODIPine 5 MG TABLET PO SCH (09:45)
[2020-01-17] MEDS ORDERED: SODIUM CHLORIDE 0.9% 1,000 ML IV PRN (13:34)
[2020-01-17] MEDS ORDERED: NOREPINEPHRINE 4 MG/4 ML VIAL IV ONE ×2 (15:35→15:36)
[2020-01-17] MEDS: NOREPINEPHRINE 8 MG in SODIUM CHLORIDE 0.9% 242 ML IV PRN ×3 (15:41→22:31)
[2020-01-17] MEDS ORDERED: DIGOXIN 0.5 MG/2 ML AMP IV ONE ×2 (17:33→19:00)
[2020-01-17] MEDS: fentaNYL INJ 1,250 MCG in SODIUM CHLORIDE 0.9% 225 ML IV PRN (18:16)
[2020-01-17] MEDS: ROSUVASTATIN 10 MG TABLET PO SCH (20:29)
[2020-01-17] MEDS: cefTRIAXone 1,000 MG in SYRINGE 1 EACH IV SCH (20:29)
[2020-01-17] MEDS ORDERED: GLUCAGON 1 MG VIAL IM PRN (22:20)
[2020-01-17] MEDS ORDERED: DEXTROSE 50% 25 GM/50 ML VIAL IV PRN (22:20)
[2020-01-18] MEDS: NOREPINEPHRINE 8 MG in SODIUM CHLORIDE 0.9% 242 ML IV PRN ×4 (03:23→21:37)
[2020-01-18 03:35] LABS: ABG Base Excess -3.9 MMOL/L (-2.5-2.5); ABG HCO3 21.6 MMOL/L (20-26); ABG PCO2 41.1 MM HG (35-48); ABG PH 7.338 (7.35-7.45); ABG TCO2 22.8 MMOL/L (23-27)
[2020-01-18 04:49] LABS: Basophils % 0.2 % (0.0-0.8); Eosinophils # 0.4 10*3/uL (0.0-0.87); Eosinophils % 3.5 % (0.00-10.9); Hematocrit 28.2 VOL% (42.0-52.0); Hemoglobin 9.2 GM/DL (14.0-18.0); Immature Granulocytes % 0.5 %; Immature Granulocytes Absolute 0.05 #; Lymphocytes # 0.5 10*3/uL (1.4-4.0); Lymphocytes % 5.1 % (21.2-54.2); Mean Corpuscular HGB Conc 32.6 GM/DL (32-36); Mean Corpuscular Volume 98.9 FL (87-102); Mean Platelet Volume 12.1 FL (9.6-12.0); Monocytes % 1.5 % (1.7-12.7); Neutrophils % 89.2 % (38.7-73.9); Red Blood Count 2.85 MC/CUMM (3.8-5.5); Red Cell Distribution Width 15.6 % (9.3-17.3); White Blood Count 10.6 T/CUMM (4-12)
[2020-01-18 04:53] LABS: Platelet Count 106 T/CUMM (130-400)
[2020-01-18 05:11] LABS: Calcium 8.1 MG/DL (8.5-10.1); Osmolality,Calculated 289.4 MOS/KG (273-304)
[2020-01-18 05:50] LABS: Eosinophils 3 % (0-10); Hypochromasia Slight; Lymphocytes 4 % (20-55); Platelet Estimate Decreased; Segmented Neutrophils 93 % (50-85); Total Cells Counted 100
[2020-01-18 05:51] LABS: Microcytosis Slight
[2020-01-18] MEDS: fentaNYL INJ 1,250 MCG in SODIUM CHLORIDE 0.9% 225 ML IV PRN ×2 (06:01→16:07)
[2020-01-18] MEDS: INSULIN REGULAR 100 UNIT/ML SUBCUT SCH ×4 (06:02→23:39)
[2020-01-18] MEDS: SEVELAMER CARBONATE 800 MG TABLET PO SCH ×3 (08:35→16:26)
[2020-01-18] MEDS: ASPIRIN CHEW 81 MG TABLET PO SCH (08:35)
[2020-01-18] MEDS: OMEPRAZOLE ODT 20 MG TABLET PER TUBE SCH (08:35)
[2020-01-18] MEDS: ACETAMINOPHEN 325 MG TABLET PO PRN ×2 (08:35→21:08)
[2020-01-18] MEDS: carvediloL 12.5 MG TABLET PO SCH (08:41)
[2020-01-18] MEDS: DIGOXIN 0.5 MG/2 ML AMP IV SCH (08:41)
[2020-01-18] MEDS: amLODIPine 5 MG TABLET PO SCH (08:45)
[2020-01-18] MEDS: METOCLOPRAMIDE 10 MG/2 ML VIAL IV SCH ×3 (11:33→23:39)
[2020-01-18] MEDS ORDERED: SODIUM CHLORIDE 0.9% 500 ML IV ONE (13:42)
[2020-01-18] MEDS ORDERED: NOREPINEPHRINE 16 MG in SODIUM CHLORIDE 0.9% 234 ML IV PRN (17:59)
[2020-01-18] MEDS: cefTRIAXone 1,000 MG in SYRINGE 1 EACH IV SCH (20:41)
[2020-01-18] MEDS: ROSUVASTATIN 10 MG TABLET PO SCH (20:41)
[2020-01-19] MEDS: fentaNYL INJ 1,250 MCG in SODIUM CHLORIDE 0.9% 225 ML IV PRN ×3 (01:14→20:32)
[2020-01-19] MEDS: ACETAMINOPHEN 325 MG TABLET PO PRN (03:49)
[2020-01-19 04:02] LABS: Basophils # 0.1 10*3/uL (0.0-0.2); Basophils % 0.4 % (0.0-0.8); Eosinophils # 0.1 10*3/uL (0.0-0.87); Eosinophils % 1.1 % (0.00-10.9); Hematocrit 29.5 VOL% (42.0-52.0); Hemoglobin 9.4 GM/DL (14.0-18.0); Immature Granulocytes % 1.4 %; Immature Granulocytes Absolute 0.17 #; Lymphocytes # 0.7 10*3/uL (1.4-4.0); Lymphocytes % 5.8 % (21.2-54.2); Mean Corpuscular HGB Conc 31.9 GM/DL (32-36); Mean Corpuscular Volume 102.4 FL (87-102); Mean Platelet Volume 12.6 FL (9.6-12.0); Monocytes % 3.9 % (1.7-12.7); Neutrophils % 87.4 % (38.7-73.9); Red Blood Count 2.88 MC/CUMM (3.8-5.5); Red Cell Distribution Width 15.7 % (9.3-17.3); White Blood Count 12.2 T/CUMM (4-12)
[2020-01-19 04:03] LABS: Platelet Count 101 T/CUMM (130-400)
[2020-01-19 04:07] LABS: ABG Base Excess -0.6 MMOL/L (-2.5-2.5); ABG HCO3 23.9 MMOL/L (20-26); ABG PCO2 45.1 MM HG (35-48); ABG PH 7.353 (7.35-7.45); ABG TCO2 23.1 MMOL/L (23-27)
[2020-01-19 04:25] LABS: Calcium 7.8 MG/DL (8.5-10.1); Osmolality,Calculated 287.2 MOS/KG (273-304)
[2020-01-19 05:13] LABS: Platelet Estimate Decreased
[2020-01-19 05:14] LABS: Hypochromasia Slight; Microcytosis Slight
[2020-01-19] MEDS: NOREPINEPHRINE 16 MG in SODIUM CHLORIDE 0.9% 234 ML IV PRN ×3 (05:39→23:37)
[2020-01-19] MEDS: METOCLOPRAMIDE 10 MG/2 ML VIAL IV SCH ×4 (06:29→23:17)
[2020-01-19] MEDS: INSULIN REGULAR 100 UNIT/ML SUBCUT SCH ×4 (06:29→23:13)
[2020-01-19] MEDS: SEVELAMER CARBONATE 800 MG TABLET PO SCH ×3 (08:25→16:45)
[2020-01-19] MEDS: ACETAMINOPHEN 500 MG TABLET PO PRN (09:00)
[2020-01-19] MEDS: ASPIRIN CHEW 81 MG TABLET PO SCH (09:25)
[2020-01-19] MEDS: OMEPRAZOLE ODT 20 MG TABLET PER TUBE SCH (09:30)
[2020-01-19] MEDS: DIGOXIN 0.5 MG/2 ML AMP IV SCH (09:49)
[2020-01-19] MEDS: PHENYLEPHRINE DRIP 40 MG/250 ML PREMIX IV PRN (10:00)
[2020-01-19] MEDS: ROSUVASTATIN 10 MG TABLET PO SCH (21:32)
[2020-01-19] MEDS: INSULIN GLARGINE 100 UNIT/ML SUBCUT SCH (21:32)
[2020-01-20] MEDS: fentaNYL INJ 1,250 MCG in SODIUM CHLORIDE 0.9% 225 ML IV PRN ×3 (02:46→18:31)
[2020-01-20] MEDS: PHENYLEPHRINE DRIP 40 MG/250 ML PREMIX IV PRN (02:46)
[2020-01-20] MEDS ORDERED: PHENYLEPHRINE INJ 160 MG in SODIUM CHLORIDE 0.9% 234 ML IV PRN (03:05)
[2020-01-20 03:47] LABS: ABG Base Excess -2.7 MMOL/L (-2.5-2.5); ABG HCO3 22.1 MMOL/L (20-26); ABG Oxygen Saturation 96.7 % (95-100); ABG PH 7.286 (7.35-7.45); ABG PO2 94.4 MM HG (80-95); ABG TCO2 22.5 MMOL/L (23-27); Allen Test Positive; Pt O2 Delivery Device Ventilator
[2020-01-20 04:49] LABS: Basophils % 0.3 % (0.0-0.8); Eosinophils # 0.1 10*3/uL (0.0-0.87); Eosinophils % 0.9 % (0.00-10.9); Hematocrit 29.7 VOL% (42.0-52.0); Hemoglobin 9.2 GM/DL (14.0-18.0); Immature Granulocytes % 1.1 %; Immature Granulocytes Absolute 0.17 #; Lymphocytes # 0.8 10*3/uL (1.4-4.0); Lymphocytes % 5.4 % (21.2-54.2); Mean Corpuscular Volume 103.5 FL (87-102); Monocytes % 3.8 % (1.7-12.7); Neutrophils % 88.5 % (38.7-73.9); Platelet Count 134 T/CUMM (130-400); Red Blood Count 2.87 MC/CUMM (3.8-5.5); Red Cell Distribution Width 15.9 % (9.3-17.3); White Blood Count 15.1 T/CUMM (4-12)
[2020-01-20 05:00] LABS: Calcium 7.9 MG/DL (8.5-10.1); Osmolality,Calculated 300.1 MOS/KG (273-304)
[2020-01-20 05:31] VITALS: BP 92/36
[2020-01-20] MEDS: INSULIN REGULAR 100 UNIT/ML SUBCUT SCH ×3 (06:12→17:24)
[2020-01-20] MEDS: METOCLOPRAMIDE 10 MG/2 ML VIAL IV SCH ×3 (06:13→17:27)
[2020-01-20] MEDS: NOREPINEPHRINE 16 MG in SODIUM CHLORIDE 0.9% 234 ML IV PRN ×2 (07:24→18:32)
[2020-01-20] MEDS: DIGOXIN 0.5 MG/2 ML AMP IV SCH ×2 (08:26→08:28)
[2020-01-20] MEDS: OMEPRAZOLE ODT 20 MG TABLET PER TUBE SCH (08:26)
[2020-01-20] MEDS: ASPIRIN CHEW 81 MG TABLET PO SCH (08:26)
[2020-01-20] MEDS: SEVELAMER CARBONATE 800 MG TABLET PO SCH ×3 (08:26→16:43)
[2020-01-20] MEDS: ACETAMINOPHEN 500 MG TABLET PO PRN (17:56)
[2020-01-20] MEDS: INSULIN GLARGINE 100 UNIT/ML SUBCUT SCH (21:34)
[2020-01-20] MEDS: ROSUVASTATIN 10 MG TABLET PO SCH (21:35)
[2020-01-21] MEDS: INSULIN REGULAR 100 UNIT/ML SUBCUT SCH ×3 (00:53→12:45)
[2020-01-21] MEDS: METOCLOPRAMIDE 10 MG/2 ML VIAL IV SCH ×3 (00:56→12:00)
[2020-01-21] MEDS: fentaNYL INJ 1,250 MCG in SODIUM CHLORIDE 0.9% 225 ML IV PRN (01:24)
[2020-01-21 04:45] LABS: ABG Base Excess -5.5 MMOL/L (-2.5-2.5); ABG HCO3 19.9 MMOL/L (20-26); ABG Oxygen Saturation 99.5 % (95-100); ABG PCO2 51.5 MM HG (35-48); ABG PH 7.241 (7.35-7.45); ABG TCO2 20.7 MMOL/L (23-27); Allen Test Positive; Pt O2 Delivery Device Ventilator
[2020-01-21 05:11] LABS: Basophils # 0.1 10*3/uL (0.0-0.2); Basophils % 0.4 % (0.0-0.8); Eosinophils % 0.3 % (0.00-10.9); Hematocrit 27.3 VOL% (42.0-52.0); Hemoglobin 8.4 GM/DL (14.0-18.0); Immature Granulocytes % 1.4 %; Immature Granulocytes Absolute 0.18 #; Lymphocytes # 0.9 10*3/uL (1.4-4.0); Lymphocytes % 7.3 % (21.2-54.2); Mean Corpuscular HGB Conc 30.8 GM/DL (32-36); Mean Corpuscular Volume 105.8 FL (87-102); Mean Platelet Volume 11.8 FL (9.6-12.0); Monocytes % 4.8 % (1.7-12.7); Neutrophils % 85.8 % (38.7-73.9); Platelet Count 139 T/CUMM (130-400); Red Blood Count 2.58 MC/CUMM (3.8-5.5); Red Cell Distribution Width 15.9 % (9.3-17.3); White Blood Count 12.7 T/CUMM (4-12)
[2020-01-21 05:31] LABS: Calcium 8.2 MG/DL (8.5-10.1); Osmolality,Calculated 308.4 MOS/KG (273-304)
[2020-01-21 05:39] LABS: Band Neutrophils 2 % (0-10); Hypochromasia 1+; Lymphocytes 6 % (20-55); Nucleated Red Blood Cells 1 (0-5); Segmented Neutrophils 89 % (50-85); Total Cells Counted 100
[2020-01-21 05:40] LABS: Macrocytosis Slight; Platelet Estimate Adequate; Polychromasia Slight
[2020-01-21] MEDS: NOREPINEPHRINE 16 MG in SODIUM CHLORIDE 0.9% 234 ML IV PRN ×2 (05:43→13:39)
[2020-01-21] MEDS: SEVELAMER CARBONATE 800 MG TABLET PO SCH ×2 (08:34→12:01)
[2020-01-21] MEDS: ASPIRIN CHEW 81 MG TABLET PO SCH (08:35)
[2020-01-21] MEDS: OMEPRAZOLE ODT 20 MG TABLET PER TUBE SCH (08:35)
[2020-01-21] MEDS: DIGOXIN 0.5 MG/2 ML AMP IV SCH (08:37)
[2020-01-21] MEDS ORDERED: methylPREDNISolone SOD SUC 40 MG/1 ML VIAL IV SCH (14:30)
[2020-01-21] MEDS ORDERED: PIPERACILLIN/TAZOBACTAM 3,375 MG in SODIUM CHLORIDE 0.9% 100 ML IV SCH (14:30)
== END 2020-01-21 14:37 | disposition expired | DRG 207 ==
LOC: SUATTDRO 22:32 → N.2W 22:32 → N.ICU 01-14 12:47 → N.CC 01-16 00:37
PROVIDERS: ADMIT Internal Medicine; ATTEND Internal Medicine